=== PATIENT | female | born 1970 | race Caucasian/White ===

== ENCOUNTER → 2016-05-24 | Outpatient (CLI) | payer OTHER ==
[~2016-05-24] MED LIST: ALBINS/ INH; ALBU18002 INH; ATOR-22 PO; BACL10TA PO; CEFD300C2 PO; CLR10 PO; CZR50 PO; DICL-201 PO; DIPH1TAB PO; DULO60CA44 PO; ESCI1TAB10 PO; FERR1TAB23 PO; FERR324T PO; GABA-113 PO; GABA1CAP5 PO; GADAVIST IV PRN; HYDR12.55 PO; HYDR200T5 PO; HYDR25TA5 PO; LEVO1TAB35 PO; LISI-725 PO; MELO7.5T5 PO; METH500T37 PO; MONT1TAB5 PO; PRAM0.256 PO; PRLSR20 PO; PROC1TAB5 PO; PRVHFAIN INH; RRIPRATNEB NEB
--- NOTE | 2016-05-24 21:13 | DIAGNOSTIC IMAGING REPORT ---
MRI CERVICAL SPINE COMBO CLINICAL HISTORY: Multifocal arthralgias. COMPARISON STUDY: No priors. TECHNIQUE: MRI of the cervical spine is performed utilizing various T1 and T2-weighted sequences in the axial and sagittal planes. Contrast-enhanced sequences are acquired following the IV administration of 9 cc of Gadavist. The examination is significantly degraded by motion artifact. FINDINGS: Cervical spine: Vertebral body height and alignment are maintained throughout the cervical spine. The atlantodental articulation appears preserved. There may be congenital incomplete fusion of the anterior and posterior ring of C1. There is mild straightening of the cervical lordosis. The spinous processes appear intact. No destructive bony lesion is seen. Intervertebral discs: There is degenerative disc desiccation seen throughout the cervical spine. Mild loss of height is noted at C5-C6. Spinal cord: The cervical spinal cord is normal in morphology. Slightly increased T2 signal intensity is suggested at C5-C6 at the level of a large posterior disc osteophyte complex. This may represent minimal myelomalacia. The cervical cord is otherwise normal in signal intensity. No abnormal enhancement is identified on the postcontrast images. C2-C3: Facet arthropathy causes minimal left-sided neural foraminal stenosis. C3-C4: A posterior disc osteophyte complex abuts the ventral cord. Uncovertebral and facet arthropathy causes mild right greater than the left neural foraminal stenosis. C4-C5: A posterior disc osteophyte complex abuts the ventral cord. The minimum central canal diameter at this level measures 7.5 mm. Predominantly uncovertebral arthropathy causes minimal right neural foraminal stenosis. C5-C6: A posterior disc osteophyte complex effaces the ventral cord. Uncovertebral and facet arthropathy causes severe left and moderate to severe right neural foraminal stenosis. C6-C7: Uncovertebral and facet arthropathy cause moderate right greater than the left neural foraminal stenosis. The central canal is clear. C7-T1: Mild facet arthropathy is of no consequence. Soft tissues: The prevertebral and paraspinous soft tissues are within normal limits. Brain parenchyma: Partially visualized brain parenchyma at the skull base is within normal limits. IMPRESSION: 1. Multilevel cervical spondylosis as above. This is greatest at C5-C6 where a posterior disc osteophyte complex effaces the ventral cord. See discussion for detailed level by level analysis. 2. There is questionable minimally increased T2 signal intensity in the cervical cord at the level of C5-C6. This may represent minimal myelomalacia secondary to spinal stenosis. 3. The cervical spinal cord is otherwise normal in morphology and signal intensity. No abnormal enhancement is seen on the postcontrast images. 4. No destructive bony process is identified. Dictated: 05/24/2016 8:45 PM Transcribed: 05/24/2016 9:12 PM SUDHIR_Rah Electronically signed by: Mark Ruano M.D. 05/24/2016 9:16 PM Dictated Date/Time: 05/24/2016 8:45 PM
--- NOTE | 2016-05-24 21:58 | DIAGNOSTIC IMAGING REPORT ---
MRI OF THE BRAIN COMBO CLINICAL HISTORY: Multifocal arthralgias. Extremity numbness. COMPARISON STUDY: No priors. TECHNIQUE: MRI of the brain was performed utilizing various T1 and T2-weighted sequences in the axial, sagittal, and coronal planes. Contrast-enhanced sequences were acquired following the administration of 9 cc of Gadavist. The examination is performed utilizing multiple sclerosis protocol. The examination is degraded by motion artifact. FINDINGS: Brain parenchyma: The brain parenchyma is normal in appearance. There is no hemorrhage or mass effect. There is no restricted diffusion to suggest acute ischemia. No enhancing mass lesion is identified on the postcontrast images. Altamirano-white matter differentiation is preserved. No extra-axial fluid collection is seen. The cerebellar tonsils are normal in configuration. Ventricles, sulci, and cisterns: Normal in configuration. Pituitary and sella: Partially empty sella is incidentally noted. Intracranial vasculature: Normal flow voids are maintained at the skull base. Orbits: The bony orbits are grossly intact. Orbital contents are normal in appearance. Sinuses and mastoids: Clear. Calvarium: Unremarkable. Cervical cord: Partially visualized cervical spinal cord is normal in morphology and signal intensity. IMPRESSION: No acute intracranial abnormality noting a motion degraded examination. Electronically signed by: Mark Ruano M.D. 05/24/2016 9:56 PM Dictated Date/Time: 05/24/2016 9:51 PM
== END | disposition home or self-care (01) ==
LOC: C.MRI 18:40
PROVIDERS: ATTEND Psychiatry & Neurology Neurology
DX: H91.20 Sudden idiopathic hearing loss, unspecified ear (principal); M25.50 Pain in unspecified joint; R20.0 Anesthesia of skin

== ENCOUNTER → 2016-05-26 | Outpatient (CLI) | payer OTHER ==
[~2016-05-26] MED LIST changes: -GADAVIST IV PRN
[2016-05-26 13:53] LABS: ALT/SGPT 24 U/L (12-78); BLOOD UREA NITROGEN 11 mg/dl (7-18); BUN/CREATININE RATIO 13.3 (10-20); CALCIUM 9.1 mg/dl (8.5-10.1); CARBON DIOXIDE 27 mmol/L (21-32); CHLORIDE 105 mmol/L (98-107); CHOLESTEROL 209 mg/dl (0-200); CREATININE 0.83 mg/dl (0.60-1.20); GLUCOSE 88 mg/dl (70-99); SODIUM 140 mmol/L (136-145)
[2016-05-26 13:56] LABS: CHOLESTEROL/HDL RATIO 5.4; HDL CHOLESTEROL 39 mg/dl; LDL CHOLESTEROL CALCULATED 138 mg/dl; TRIGLYCERIDES 160 mg/dl (0-150); VERY LOW DENSITY LIPOPROT CALC 32 mg/dl
== END | disposition home or self-care (01) ==
LOC: C.LABBC 11:05
PROVIDERS: ATTEND Family Medicine
DX: I10 Essential (primary) hypertension (principal); E78.5 Hyperlipidemia, unspecified

== ENCOUNTER → 2016-05-30 | Outpatient (CLI) | payer OTHER ==
--- NOTE | 2016-05-30 15:00 | MAMMOGRAPHY REPORT ---
UNILATERAL LEFT DIGITAL DIAGNOSTIC MAMMOGRAM TOMOSYNTHESIS WITH CAD AND TARGETED LEFT ULTRASOUND: CLINICAL HISTORY: 46-year-old female presents for follow-up in the left breast for a grouping of sigrid rocalcifications and medial asymmetry. TECHNIQUE: Left breast CC and MLO 2-D digital and tomosynthesis images, 2-D digital left XCCL and sp ot magnification left CC and ML views were obtained. Current study was also evaluated with a Comput er Aided Detection (CAD) system. COMPARISON: Comparison is made to exams dated: 11/26/2015 mammogram, 11/19/2015 mammogram, 05/30/2016 ultrasound, and 11/26/2015 ultrasound - [facility]. BREAST COMPOSITION: There are scattered areas of fibroglandular density in the left breast. FINDINGS: The parenchymal pattern of the left breast is similar to prior exams. However, the asymme try in the medial left breast is slightly less conspicuous, given slight differences in positioning on the CC view. There is a persistent cluster of coarse heterogeneous microcalcifications in the up per inner middle one third of the left breast for which spot magnification views were obtained. Bas ed on the spot magnification views this tiny 2 mm cluster of microcalcifications is unchanged. Give n that they were identified on the patient's baseline screening mammogram, longer stability is neede d although they are most likely benign. No new suspicious mass, architectural distortion or cluster of microcalcifications is seen. Targeted ultrasound was performed in the medial left breast. In the 10:00 axis, 6 cm from the nippl e, there is an anechoic benign simple cyst measuring 3.4 x 2.1 x 2.7 mm. This has fluctuated in siz e comparing to the prior ultrasound, but given the anechoic nature it is benign. No other discrete solid or cystic mass is seen. IMPRESSION: ACR-BI-RADS CATEGORY 3: PROBABLY BENIGN, TARGETED ULTRASOUND ACR-BI-RADS CATEGORY 3: DC OBABLY BENIGN 1. Decreased conspicuity of an asymmetry in the medial left breast, which may correlate with an ane choic simple cyst on ultrasound. This finding is considered benign and no further close follow-up i s needed at this time. 2. A 2 mm cluster of coarse heterogeneous microcalcifications in the upper inner middle one third o f the left breast is stable dating back to 11/26/2015. Longer stability is needed and another 6 mon th follow-up exam including spot magnification views is recommended. Annual right mammography is al so due at that time. These results and recommendations were discussed with the patient at the time of the exam. Approximately 10% of breast cancers are not detected with mammography. A negative mammographic repor t should not delay biopsy if a clinically suggestive mass is present. Yasmeen Gongora M.D. ay/:05/30/2016 12:07:57 Huc: Verónica CLAROS(Sonya)(M), [facility] letter sent: Follow Up Recommended 3 BI-RADS Code: ACR-BI-RADS Category 3: Probably Benign Ultrasound BI-RADS: ACR-BI-RADS Category 3: P robably Benign
== END | disposition home or self-care (01) ==
LOC: C.MAMM 09:26
PROVIDERS: ATTEND Family Medicine
DX: R92.0 Mammographic microcalcification found on diagnostic imaging of breast (principal); N64.9 Disorder of breast, unspecified

== ENCOUNTER → 2016-06-20 | Outpatient (CLI) | payer OTHER ==
[~2016-06-20] MED LIST changes: -ALBINS/ INH; +ALBINS/ NEB
== END | disposition home or self-care (01) ==
LOC: C.LABBC 10:19
PROVIDERS: ATTEND Family Medicine
DX: E55.9 Vitamin D deficiency, unspecified (principal)

== ENCOUNTER 2016-07-31 05:00 | Emergency (ER) | payer OTHER ==
[~2016-07-31] VITALS: Ht 154.9 cm; Wt 100.0 kg
[~2016-07-31 05:00] MED LIST changes: -ALBINS/ NEB; -ATOR-22 PO; -BACL10TA PO; -CEFD300C2 PO; -CZR50 PO; -DICL-201 PO; -DIPH1TAB PO; -DULO60CA44 PO; -ESCI1TAB10 PO; -FERR1TAB23 PO; -GABA-113 PO; -GABA1CAP5 PO; -HYDR12.55 PO; -HYDR200T5 PO; -LEVO1TAB35 PO; -LISI-725 PO; -METH500T37 PO; -MONT1TAB5 PO; -PRAM0.256 PO; -PRLSR20 PO; -PROC1TAB5 PO; -PRVHFAIN INH
[2016-07-31 05:12] VITALS: TEMP 36.6; Ht 154.9 cm; Wt 100.0 kg
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
[2016-07-31 05:49] LABS: HEMATOCRIT 42.4 % (37-47); MEAN CELL VOLUME 86.9 fL (80-100); MEAN CORPUSCULAR HEMOGLOBIN 30.1 pg (25-34); MEAN CORPUSCULAR HGB CONC 34.7 g/dl (32-36); MEAN PLATELET VOLUME 9.8 fL (7.4-10.4); PLATELET COUNT 372 K/uL (130-400); RED BLOOD COUNT 4.88 M/uL (4.2-5.4); WHITE BLOOD COUNT 17.46 K/uL (4.8-10.8)
[2016-07-31 06:07] LABS: ALT/SGPT 39 U/L (12-78); AST/SGOT 24 U/L (15-37); BLOOD UREA NITROGEN 9 mg/dl (7-18); CARBON DIOXIDE 26 mmol/L (21-32); CHLORIDE 105 mmol/L (98-107); CREATININE 0.75 mg/dl (0.60-1.20); GLUCOSE 88 mg/dl (70-99); POTASSIUM 3.5 mmol/L (3.5-5.1); SODIUM 140 mmol/L (136-145)
[2016-07-31 06:09] LABS: BENZODIAZEPINE, URINE NEG (NEG); COCAINE,URINE NEG (NEG); PHENCYCLIDINE, URINE NEG (NEG)
[2016-07-31 06:17] LABS: ALKALINE PHOSPHATASE 111 U/L (45-117)
[2016-07-31 06:27] LABS: ACETAMINOPHEN < 2 ug/ml (10-30)
[2016-07-31 07:07] VITALS: O2SAT 95
--- NOTE | 2016-07-31 08:49 | EMERGENCY ROOM VISIT NOTE ---
ED Visit Note This patient was signed out to me at shift change by Dr. Suero. The patient had been medically cleared and was awaiting psychiatric evaluation. The patient was seen by the [facility] mental health worker who feels that she is safe to go home. I talked to the patient at length as well. She denies that she was trying to hurt herself. She denies suicidal or homicidal ideations. She desires to go home. She will be discharged to home . she should follow up with her regular doctor and ensure that she only takes her medications as directed. She should return to ER if thoughts of hurting himself or others, any new problems or concerns.
[2016-07-31 09:35] VITALS: BP 136/88; PULSE 89; O2SAT 95
[2016-11-07] MEDS ORDERED: METH500T37 PO (10:17)
[2017-02-08] MEDS ORDERED: PRVHFAIN INH (02:09)
[2017-02-08] MEDS ORDERED: ALBINS/ NEB (02:16)
[2017-02-08] MEDS ORDERED: BACL10TA PO (02:18)
[2017-02-08] MEDS ORDERED: PROC1TAB5 PO (02:19)
[2017-02-08] MEDS ORDERED: MONT1TAB5 PO (02:37)
[2017-02-08] MEDS ORDERED: DULO60CA44 PO (02:38)
[2017-02-08] MEDS ORDERED: PRAM0.256 PO (02:40)
[2017-02-08] MEDS ORDERED: HYDR12.55 PO (02:40)
[2017-02-08] MEDS ORDERED: CZR50 PO (10:46)
[2017-02-08] MEDS ORDERED: GABA-113 PO (12:45)
[2017-02-08] MEDS ORDERED: DIPH1TAB PO (12:45)
[2017-02-08] MEDS ORDERED: DICL-201 PO (12:45)
[2017-02-08] MEDS ORDERED: ATOR-22 PO (15:01)
[2017-02-08] MEDS ORDERED: PRLSR20 PO (15:01)
[2017-02-10] MEDS ORDERED: ZNTT/150 PO (09:14)
== END 2016-07-31 09:41 | disposition home or self-care (01) ==
LOC: EDBD 05:00 → C.EDA 05:01
DX: T50.991A Poisoning by other drugs, medicaments and biological substances, accidental (unintentional), initial encounter (principal); X58.XXXA Exposure to other specified factors, initial encounter; F10.129 Alcohol abuse with intoxication, unspecified; Y90.6 Blood alcohol level of 120-199 mg/100 ml; D86.0 Sarcoidosis of lung; F17.200 Nicotine dependence, unspecified, uncomplicated

== ENCOUNTER → 2016-08-18 | Outpatient (CLI) | payer OTHER ==
[~2016-08-18] MED LIST changes: +ALBINS/ NEB; +ATOR-22 PO; +BACL10TA PO; +CEFD300C2 PO; +CZR50 PO; +DICL-201 PO; +DIPH1TAB87 PO; +DULO60CA44 PO; +ESCI1TAB10 PO; +FERR1TAB23 PO; +GABA-113 PO; +GABA600T PO; +GADAVIST IV PRN; +HYDR12.55 PO; +HYDR200T5 PO; +METH500T37 PO; +MONT1TAB5 PO; +ONDA4TAB65 PO; +PRAM0.256 PO; +PRLSR20 PO; +PROC1TAB5 PO; +PRVHFAIN INH; +ZNTT/150 PO
--- NOTE | 2016-08-18 15:13 | DIAGNOSTIC IMAGING REPORT ---
MRI OF THE LUMBAR SPINE COMBO CLINICAL HISTORY: Low back pain. COMPARISON STUDY: No priors. TECHNIQUE: MRI of the lumbar spine is performed utilizing various T1 and T2-weighted sequences in the axial and sagittal planes. Contrast-enhanced sequences are acquired following the IV administration of 9.5 cc of Gadavist. FINDINGS: Lumbar spine: Vertebral body height and alignment are maintained throughout the lumbar spine. Normal marrow signal intensity is preserved throughout the visualized bony structures. The transverse and spinous processes appear intact. There is no evidence of spondylolysis. Tiny anterior osteophytes are noted at L4 and L5. No destructive osseous lesion is seen. Intervertebral discs: There is mild degenerative disc desiccation throughout the lumbar spine. There is moderate loss of height at L5-S1. Spinal cord: The visualized spinal cord is normal in morphology and signal intensity. The conus medullaris terminates at the L1-L2 interspace. The nerve roots of the cauda equina are normal in morphology. No abnormal enhancement is identified on the postcontrast images. L1-L2: Unremarkable. L2-L3: Unremarkable. L3-L4: Unremarkable. L4-L5: There is minimal disc bulge. In conjunction with hypertrophy of the ligamentum flavum, this contributes to minimal acquired compromise of the central canal. The minimum AP diameter measures 8 mm. There is mild bilateral subarticular stenosis. Facet arthropathy causes minimal neural foraminal narrowing. L5-S1: There is broad-based posterior disc bulge eccentric to the left with annular fissure. There is no significant acquired compromise of the central canal at this level. The disc bulge abuts the transiting bilateral S1 nerve roots. Facet arthropathy causes minimal right neural foraminal stenosis. Sacrum: Visualized sacrum is normal in morphology and signal intensity. Soft tissues: The left kidney is noted in the pelvis. The paraspinous soft tissues are within normal limits. IMPRESSION: 1. There is a broad-based disc bulge at L5-S1. This abuts the transiting bilateral S1 nerve roots. 2. There is minimal acquired compromise of the central canal at L4-L5 secondary to posterior disc bulge. 3. See discussion for detailed [id number] analysis. 4. The left kidney is located in the pelvis. Dictated: 08/18/2016 2:35 PM Transcribed: 08/18/2016 3:12 PM Lucila Electronically signed by: Mark Ruano M.D. 08/18/2016 3:14 PM Dictated Date/Time: 08/18/2016 2:35 PM
== END | disposition home or self-care (01) ==
LOC: C.MRIBC 13:17
PROVIDERS: ATTEND Psychiatry & Neurology Neurology
DX: M54.16 Radiculopathy, lumbar region (principal)

== ENCOUNTER → 2016-09-05 | Outpatient (CLI) | payer OTHER ==
[~2016-09-05] MED LIST changes: -GADAVIST IV PRN
[2016-09-05 13:55] LABS: BLOOD UREA NITROGEN 7 mg/dl (7-18); BUN/CREATININE RATIO 8.8 (10-20); CALCIUM 8.8 mg/dl (8.5-10.1); CARBON DIOXIDE 30 mmol/L (21-32); CHLORIDE 106 mmol/L (98-107); CREATININE 0.79 mg/dl (0.60-1.20); GLUCOSE 101 mg/dl (70-99); POTASSIUM 3.4 mmol/L (3.5-5.1); SODIUM 142 mmol/L (136-145)
== END | disposition home or self-care (01) ==
LOC: C.LABBC 11:16
PROVIDERS: ATTEND Family Medicine
DX: I10 Essential (primary) hypertension (principal); R60.0 Localized edema

== ENCOUNTER → 2016-09-06 | Outpatient (CLI) | payer OTHER ==
--- NOTE | 2016-09-06 11:00 | DIAGNOSTIC IMAGING REPORT ---
LEFT HAND MIN 3 VIEWS ROUTINE CLINICAL HISTORY: M25.50 Arthralgia of multiple [id number] [id number] Lumbar r pain COMPARISON: None. DISCUSSION: The bones and joint spaces appear intact. There is no evidence of fracture, dislocation or bony disease. There is no evidence for soft tissue swelling. IMPRESSION: Negative study. Electronically signed by: Geremias Braun M.D. 09/06/2016 10:59 AM Dictated Date/Time: 09/06/2016 10:58 AM
--- NOTE | 2016-09-06 11:15 | DIAGNOSTIC IMAGING REPORT ---
RIGHT HAND MIN 3 VIEWS ROUTINE CLINICAL HISTORY: M25.50 Arthralgia of multiple [id number] [id number] Lumbar r Right pain COMPARISON: None. DISCUSSION: The bones and joint spaces appear intact. There is no evidence of fracture, dislocation or bony disease. There is no evidence for soft tissue swelling. IMPRESSION: Negative study. Electronically signed by: Geremias Braun M.D. 09/06/2016 11:14 AM Dictated Date/Time: 09/06/2016 11:14 AM
--- NOTE | 2016-09-06 11:19 | DIAGNOSTIC IMAGING REPORT ---
RIGHT FOOT MIN 3 VIEWS ROUTINE CLINICAL HISTORY: Right foot pain COMPARISON: None. DISCUSSION: No fractures or dislocations are visualized. There are no erosive or destructive changes. There is a tiny Achilles insertional spur. IMPRESSION: 1. No acute fractures 2. No evidence of erosive disease Electronically signed by: Andrés Winkler M.D. 09/06/2016 11:18 AM Dictated Date/Time: 09/06/2016 11:17 AM
[2016-09-06 13:07] LABS: RHEUMATOID FACTOR < 10.0 U/mL (0-15); TOTAL IRON BINDING CAPACITY 347 mcg/dl (250-450)
[2016-09-12 13:10] LABS: ANTI-CENTROMERE AB <1.0 NEG AI (<1.0 NEG); ANTI-SS-A <1.0 NEG AI (<1.0 NEG); ANTI-SS-B 2.4 POS AI (<1.0 NEG); DNA ds CRITHIDIA NEGATIVE (NEGATIVE); Sm Antibody <1.0 NEG AI (<1.0 NEG)
== END | disposition home or self-care (01) ==
LOC: C.LAB1850 10:15
PROVIDERS: ATTEND Internal Medicine Rheumatology
DX: M25.50 Pain in unspecified joint (principal); M54.16 Radiculopathy, lumbar region; M79.643 Pain in unspecified hand; M79.673 Pain in unspecified foot; R53.83 Other fatigue; G43.109 Migraine with aura, not intractable, without status migrainosus; M48.02 Spinal stenosis, cervical region

== ENCOUNTER 2016-09-18 10:13 | Emergency (ER) | payer OTHER ==
[~2016-09-18] VITALS: Ht 154.9 cm; Wt 97.6 kg
[~2016-09-18 10:13] MED LIST changes: -ALBINS/ NEB; -ATOR-22 PO; -BACL10TA PO; -CEFD300C2 PO; -CZR50 PO; -DICL-201 PO; -DIPH1TAB87 PO; -DULO60CA44 PO; -ESCI1TAB10 PO; -FERR1TAB23 PO; -GABA-113 PO; -GABA600T PO; -HYDR12.55 PO; -HYDR200T5 PO; -METH500T37 PO; -MONT1TAB5 PO; -ONDA4TAB65 PO; -PRAM0.256 PO; -PRLSR20 PO; -PROC1TAB5 PO; -PRVHFAIN INH; -ZNTT/150 PO
[2016-09-18 10:17] VITALS: BP 133/73; PULSE 102; TEMP 36.9; O2SAT 97; Ht 154.9 cm; Wt 97.6 kg
[2016-09-18] MEDS ORDERED: CEFD300C2 PO (10:38)
--- NOTE | 2016-09-18 10:44 | EMERGENCY ROOM VISIT NOTE ---
History First contact with patient: 10:24 Chief Complaint: SINUS CONGESTION/PRESSURE Stated Complaint: SINUS 1ST WHEEZING, COUGH Nursing Triage Summary: Cough, congestion History of Present Illness The patient is a 46 year old female who presents to the Emergency Room with complaints of significant facial congestion, postnasal drip, coughing and dry heaving. The patient reports that she has had sinus congestion for the past 3 weeks. It has worsened over the past few days. She denies any fevers or chills or headache. She has not contacted her family doctor regarding her symptoms. The patient also reports that she tripped and fell yesterday. She has bruising over the inner aspect of the left elbow. She is currently under the care of Dr. Pope. She reports right lower extremity weakness. She did have a recent MRI of the back. She denies any bladder or bowel incontinence, saddle anesthesias or noticeable foot drop. Review of Systems 10 system review was performed and was negative except for pertinent positives and negatives as indicated in history of present illness Past Medical/Surgical History Medical Problems: (1) Pneumonia of both lower lobes (2) Sarcoidosis of lung Family History No pertinent family history Social History Smoking Status: Current Every Day Smoker Alcohol Use: occasionally Drug Use: none Marital Status: single Housing Status: lives with family Occupation Status: employed Current/Historical Medications Scheduled Albuterol Sulfate (Proair Respiclick), 1 PUFF INH UD Atorvastatin (Lipitor), 20 MG PO DAILY Cefdinir (Omnicef), 300 MG PO Q12H Diclofenac (Voltaren), 75 MG PO BID Ferrous Gluconate (Iron Supplement), 324 MG PO DAILY Gabapentin (Neurontin), 600 MG PO TID Hydrochlorothiazide (Hydrochlorothiazide), 12.5 MG PO DAILY Ipratropium [place] (Ipratropium [place]), 1 DOSE NEB UD Loratadine (Claritin), 10 MG PO DAILY Losartan Potassium (Losartan Potassium), 50 MG PO DAILY Meloxicam (Mobic), 15 MG PO DAILY Omeprazole (Prilosec), 20 MG PO DAILY Scheduled PRN Diphenhydramine Hcl (Benadryl Allergy), 50 MG PO Q4H PRN for ALLERGIC REACTION Allergies Coded Allergies: Aspirin (Verified Allergy, Unknown, UNKN, 07/31/16) [place] (Unverified Allergy, Unknown, TIGHTNESS OF THROAT,WATERY EYES, 07/31) Penicillins (Verified Allergy, Unknown, Unknown, 07/31/16) Uncoded Allergies: MILDEW (Allergy, Severe, BACTERIAL PNEUMONIA, 03/20/16) MOLD (Allergy, Severe, BACTERIAL PNEUMONIA, 03/20/16) Physical Exam Vital Signs Date Time Temp Pulse Resp B/P Pulse Ox O2 Delivery O2 Flow Rate FiO2 09/18/16 10:17 36.9 102 20 133/73 97 Room Air Physical Exam CONSTITUTIONAL: Healthy and well nourished. Alert and oriented X 3 with positive affect. Patient does not appear acutely ill or in any acute discomfort or distress. HEENT: Normocephalic, atraumatic. Pupils equal, round and reactive. Examination of the ears does not show any TM bulging, air-fluid levels or purulent effusion. No erythema noted. Patient has mild drainage from both nares. She is notably tender to palpation and percussion of the maxillary sinuses. OROPHARYNX: Postnasal drip is noted. No tonsillar exudates. NECK: Full active range of motion without discomfort. RESPIRATORY: Clear to auscultation bilaterally with no wheezing, crackles, rhonchi or stridor. CARDIOVASCULAR: Regular rate and rhythm with no murmurs, rubs or gallops. GASTROINTESTINAL: Bowel sounds present in all quadrants. Soft and nontender to palpation. MUSCULOSKELETAL: Examination shows ecchymosis over the right medial elbow. She otherwise has full flexion, extension, pronation and supination without discomfort. She also has no tenderness to palpation about the shoulder. Distal pulses are intact. Ankle plantar and dorsiflexion strength is 5 out of 5 and symmetric bilaterally. Patient does not ambulate with a foot drop. INTEGUMENTARY: No rash or other significant dermatologic conditions noted. NEUROLOGIC: No focal neurologic deficits noted. Right foot and toes are sensory intact with lower extremity deep tendon reflexes 2+ and symmetric bilaterally. Medical Decision & Procedures ED Course Patient history and physical exam were performed. Nurse's notes were reviewed. Medical exam and history are consistent with an acute maxillary sinusitis. The patient's musculoskeletal examination of the right upper extremity was normal except for mild ecchymosis. At this point, I do not feel that further imaging studies are warranted. The patient was provided a prescription for Omnicef. She was instructed to take ibuprofen or Tylenol as needed for pain. Intermittent application of ice to the elbow. She was instructed to follow-up with family doctor within the next 3-5 days for recheck of her sinusitis. She was also instructed to follow-up with Dr. Pope given her most recent fall. The patient was happy with plan of care, voiced understanding of all discharge instructions, and rated her overall discomfort a 3 out of 10 at the time of discharge. Medical Decision Impression Primary Impression: Acute maxillary sinusitis Additional Impressions: Status post fall Contusion of right elbow Departure Information Dispostion Home / Self-Care Prescriptions Cefdinir (OMNICEF) 300 Mg Cap 300 MG PO Q12H for 10 Days, #20 CAP Prov: Latrell Casey PA 09/18/16 Referrals Keyla Johnston D.O. Forms HOME CARE DOCUMENTATION FORM, IMPORTANT VISIT INFORMATION Patient Instructions Sinusitis Causes, Sinusitis Prevent, Sinusitis Self Care, [facility] Maintenance Assistant Additional Instructions Complete all Omnicef antibiotics as prescribed. Ibuprofen or Tylenol as needed for pain. Intermittently apply ice to the elbow as needed for swelling and discomfort. Follow-up with your family doctor in 3-5 days for recheck of your sinusitis. Follow-up with Dr. Pope to discuss your fall and back issues with right leg weakness. Problem Qualifiers Primary Impression: Acute maxillary sinusitis Recurrence: recurrent Qualified Codes: J01.01 - Acute recurrent maxillary sinusitis Additional Impressions: Contusion of right elbow Encounter type: initial encounter Qualified Codes: S50.01XA - Contusion of right elbow, initial encounter
[2016-11-07] MEDS ORDERED: METH500T37 PO (10:17)
[2017-02-08] MEDS ORDERED: PRVHFAIN INH (02:09)
[2017-02-08] MEDS ORDERED: ALBINS/ NEB (02:16)
[2017-02-08] MEDS ORDERED: BACL10TA PO (02:18)
[2017-02-08] MEDS ORDERED: PROC1TAB5 PO (02:19)
[2017-02-08] MEDS ORDERED: MONT1TAB5 PO (02:37)
[2017-02-08] MEDS ORDERED: DULO60CA44 PO (02:38)
[2017-02-08] MEDS ORDERED: HYDR12.55 PO (02:40)
[2017-02-08] MEDS ORDERED: PRAM0.256 PO (02:40)
[2017-02-08] MEDS ORDERED: CZR50 PO (10:46)
[2017-02-08] MEDS ORDERED: GABA-113 PO (12:45)
[2017-02-08] MEDS ORDERED: DIPH1TAB87 PO (12:45)
[2017-02-08] MEDS ORDERED: DICL-201 PO (12:45)
[2017-02-08] MEDS ORDERED: PRLSR20 PO (15:01)
[2017-02-08] MEDS ORDERED: ATOR-22 PO (15:01)
[2017-02-10] MEDS ORDERED: ZNTT/150 PO (09:14)
[2017-03-01] MEDS ORDERED: GABA600T PO (13:10)
[2017-03-13] MEDS ORDERED: ONDA4TAB65 PO (21:59)
== END 2016-09-18 11:37 | disposition home or self-care (01) ==
LOC: C.EDB 10:14
DX: J01.11 Acute recurrent frontal sinusitis (principal); S50.01XA Contusion of right elbow, initial encounter; W01.0XXA Fall on same level from slipping, tripping and stumbling without subsequent striking against object, initial encounter; F17.200 Nicotine dependence, unspecified, uncomplicated; Z79.899 Other long term (current) drug therapy; Z88.0 Allergy status to penicillin; Z88.6 Allergy status to analgesic agent; Z91.018 Allergy to other foods

== ENCOUNTER → 2016-10-28 | Outpatient (CLI) | payer OTHER ==
[~2016-10-28] MED LIST changes: +ALBINS/ NEB; +ATOR-22 PO; +BACL10TA PO; +CZR50 PO; +DICL-201 PO; +DIPH1TAB87 PO; +DULO60CA44 PO; +ESCI1TAB10 PO; +FERR1TAB23 PO; +GABA-113 PO; +GABA600T PO; +HYDR12.55 PO; +HYDR200T5 PO; +METH500T37 PO; +MONT1TAB5 PO; +ONDA4TAB65 PO; +PRAM0.256 PO; +PRLSR20 PO; +PROC1TAB5 PO; +PRVHFAIN INH; +ZNTT/150 PO
[2016-10-28 16:52] LABS: BASO % 0.5 %; BASO ABS # 0.06 K/uL (0-0.2); COMPLETE YES; EOS % 3.4 %; IG% 0.3 %; LYMPH % 31.7 %; LYMPH ABS # 3.54 K/uL (1.2-3.4); MEAN CELL VOLUME 89.6 fL (80-100); MEAN CORPUSCULAR HGB CONC 34.7 g/dl (32-36); MONO % 6.4 %; NEUT % 57.7 %; PLATELET COUNT 421 K/uL (130-400); WHITE BLOOD COUNT 11.15 K/uL (4.8-10.8)
[2016-10-28 16:59] LABS: ALT/SGPT 34 U/L (12-78); CREATININE 0.76 mg/dl (0.60-1.20)
[2016-10-28 17:03] LABS: ALKALINE PHOSPHATASE 93 U/L (45-117); AST/SGOT 13 U/L (15-37)
== END ==
LOC: C.LABBC 15:01
PROVIDERS: ATTEND Internal Medicine Rheumatology
DX: M25.50 Pain in unspecified joint (principal); R76.8 Other specified abnormal immunological findings in serum

== ENCOUNTER 2016-11-18 00:04 | Emergency (ER) | payer OTHER ==
[~2016-11-18] VITALS: Ht 154.9 cm; Wt 96.1 kg
[~2016-11-18 00:04] MED LIST changes: -ALBINS/ NEB; -BACL10TA PO; +DIPH1TAB PO; -DIPH1TAB87 PO; -DULO60CA44 PO; -ESCI1TAB10 PO; -FERR1TAB23 PO; -FERR324T PO; -GABA600T PO; -HYDR12.55 PO; -HYDR200T5 PO; -MELO7.5T5 PO; -MONT1TAB5 PO; -ONDA4TAB65 PO; -PRAM0.256 PO; -PROC1TAB5 PO; -PRVHFAIN INH; -ZNTT/150 PO
[2016-11-18 00:12] VITALS: TEMP 36.8; Ht 154.9 cm; Wt 96.1 kg
[2016-11-18] MEDS ORDERED: METOCLOPRAMIDE HCL INJ 5 MG/ML 2 ML VIAL IV STA (00:54)
[2016-11-18] MEDS ORDERED: DiphenhydrAMINE HCL 50 MG/ML VIAL IV STA (00:54)
[2016-11-18 01:18] LABS: BASO % 0.5 %; BASO ABS # 0.06 K/uL (0-0.2); COMPLETE YES; EOS % 3.4 %; HEMATOCRIT 41.8 % (37-47); IG% 0.3 %; LYMPH % 33.2 %; LYMPH ABS # 3.89 K/uL (1.2-3.4); MEAN CELL VOLUME 88.4 fL (80-100); MEAN PLATELET VOLUME 9.3 fL (7.4-10.4); MONO % 6.3 %; NEUT % 56.3 %; PLATELET COUNT 423 K/uL (130-400); RED BLOOD COUNT 4.73 M/uL (4.2-5.4); WHITE BLOOD COUNT 11.73 K/uL (4.8-10.8)
[2016-11-18 01:35] LABS: CALCIUM 8.9 mg/dl (8.5-10.1); CREATININE 0.68 mg/dl (0.60-1.20)
[2016-11-18] MEDS ORDERED: POTASSIUM CHLORIDE 10 MEQ TABCR PO STA (01:55)
[2016-11-18] MEDS ORDERED: ESCI1TAB10 PO (02:06)
[2016-11-18] MEDS ORDERED: PRVHFAIN INH (02:09)
[2016-11-18] MEDS ORDERED: HYDR200T5 PO (02:13)
[2016-11-18] MEDS ORDERED: FERR1TAB23 PO (02:14)
[2016-11-18] MEDS ORDERED: ALBINS/ INH (02:16)
[2016-11-18] MEDS ORDERED: BACL10TA PO (02:18)
[2016-11-18] MEDS ORDERED: PROC1TAB5 PO (02:19)
[2016-11-18 03:07] VITALS: BP 118/77; PULSE 59; O2SAT 94
--- NOTE | 2016-11-18 04:58 | EMERGENCY ROOM VISIT NOTE ---
History First contact with patient: 00:51 Chief Complaint: HEADACHE Stated Complaint: DOUBLE VISION,HEADACHE,NAUSEA History of Present Illness The patient is a 46 year old female who presents to the Emergency Room with complaints of nausea, headache, diplopia and photophobia for the past day who is a history of migraines and symptoms are similar. Patient states she follows with Dr. Quijano from neurology. She has a history of migraines and cervical stenosis. Patient denies sudden onset headache, numbness, tingling, localized weakness, dysarthria, chest pain, dyspnea, cold symptoms, neck stiffness, fever , chills, loss of vision, abdominal pain. She is tolerating by mouth fluids and food. Review of Systems See HPI for pertinent positives & negatives. A total of 10 systems reviewed and were otherwise negative. Past Medical/Surgical History Medical Problems: (1) Pneumonia of both lower lobes (2) Sarcoidosis of lung Family History No pertinent family history Social History Smoking Status: Current Every Day Smoker Alcohol Use: occasionally Drug Use: none Marital Status: single Housing Status: lives with family Occupation Status: employed Current/Historical Medications Scheduled Atorvastatin (Lipitor), 20 MG PO DAILY Diclofenac (Voltaren), 75 MG PO BID Escitalopram Oxalate (Lexapro), 20 MG PO DAILY Ferrous Sulfate (Iron), 325 MG PO DAILY Gabapentin (Neurontin), 900 MG PO TID Hydrochlorothiazide (Hydrochlorothiazide), 12.5 MG PO DAILY Hydroxychloroquine Sulfate (Plaquenil), 200 MG PO DAILY Ipratropium [place] (Ipratropium [place]), 1 DOSE NEB UD Losartan Potassium (Losartan Potassium), 50 MG PO DAILY Omeprazole (Prilosec), 20 MG PO DAILY Scheduled PRN Albuterol (Ventolin Hfa), 2 PUFFS INH Q4H PRN for Cough Albuterol Sulf (Proventil 0.083% 2.5MG/3ML), 2.5 MG INH Q4-6 PRN for SOB/ Wheezing Baclofen (Lioresal), 10 MG PO Q6H PRN for PAIN & STIFFNESS & HEADACHES Diphenhydramine Hcl (Benadryl Allergy), 50 MG PO Q4H PRN for ALLERGIC REACTION Methocarbamol (Robaxin), 500 MG PO TID PRN for Muscle Spasms Prochlorperazine Maleate (Compazine), 10 MG PO Q6H PRN for Nausea Allergies Coded Allergies: Aspirin (Verified Allergy, Unknown, UNKN, 07/31/16) [place] (Unverified Allergy, Unknown, TIGHTNESS OF THROAT,WATERY EYES, 07/31) Penicillins (Verified Allergy, Unknown, Unknown, 07/31/16) Uncoded Allergies: MILDEW (Allergy, Severe, BACTERIAL PNEUMONIA, 03/20/16) MOLD (Allergy, Severe, BACTERIAL PNEUMONIA, 03/20/16) Physical Exam Vital Signs Date Time Temp Pulse Resp B/P (MAP) Pulse Ox O2 Delivery O2 Flow Rate FiO2 11/18/16 03:07 59 17 118/77 94 11/18/16 02:10 85 18 140/75 97 Room Air 11/18/16 01:23 64 18 162/80 100 Room Air 11/18/16 00:12 36.8 70 20 150/47 96 Room Air Pain Rating (0-10): 8.0 Physical Exam VITALS: Vitals are noted on the nurse's note and reviewed by myself. Vital signs stable. GENERAL: Pleasant female, in no acute distress, nondiaphoretic, well-developed well-nourished. SKIN: The skin was without rashes, erythema, edema, or bruising. There is no tenting of the skin. Capillary reflex less than 2 seconds. HEAD: Normocephalic atraumatic. EARS: External auditory canals clear, tympanic membranes pearly farley without erythema or effusion bilaterally. EYES: Pupils equal round and reactive to light and accommodation. Conjunctivae without injection, sclerae without icterus. Extraocular movements intact. NOSE: Patent, turbinates without inflammation or discharge. No sinus tenderness. MOUTH: Mucous membranes moist. Pharynx without erythema or exudate. Uvula midline. Airway patent. Tongue does not deviate. NECK: Supple without nuchal rigidity. No lymphadenopathy. No thyromegaly. Cervical spine is nontender. No JVD. No meningeal signs HEART: Regular rate and rhythm without murmurs gallops or rubs. LUNGS: Clear to auscultation bilaterally without wheezes, rales or rhonchi. No dullness to percussion. No retractions or accessory muscle use. ABDOMEN: Positive bowel sounds x 4. Normal tympanic percussion. Soft, nontender, without masses or organomegaly. Ortiz sign negative. No guarding or rebound tenderness. MUSCULOSKELETAL: No muscle atrophy, erythema, or edema noted. 5 out of 5 strength throughout NEURO: Patient was alert and oriented to person place and time. Normal sensation to light and sharp touch. No focal neurological deficits. Cranial nerves II-12 grossly intact. No pronator drift. Cerebellar exam intact. Medical Decision & Procedures Laboratory Results 11/18/16 01:09 Red Blood Count 4.73, Mean Corpuscular Volume 88.4, Mean Corpuscular Hemoglobin 30.0, Mean Corpuscular Hemoglobin Concent 34.0, Mean Platelet Volume 9.3, Neutrophils (%) (Auto) 56.3, Lymphocytes (%) (Auto) 33.2, Monocytes (%) (Auto) 6.3, Eosinophils (%) (Auto) 3.4, Basophils (%) (Auto) 0.5, Neutrophils # (Auto) 6.60, Lymphocytes # (Auto) 3.89, Monocytes # (Auto) 0.74, Eosinophils # (Auto) 0.40, Basophils # (Auto) 0.06 11/18/16 01:09 Test 11/18/16 01:09 White Blood Count 11.73 K/uL (4.8-10.8) Red Blood Count 4.73 M/uL (4.2-5.4) Hemoglobin 14.2 g/dL (12.0-16.0) Hematocrit 41.8 % (37-47) Mean Corpuscular Volume 88.4 fL (80-100) Mean Corpuscular Hemoglobin 30.0 pg (25-34) Mean Corpuscular Hemoglobin Concent 34.0 g/dl (32-36) Platelet Count 423 K/uL (130-400) Mean Platelet Volume 9.3 fL (7.4-10.4) Neutrophils (%) (Auto) 56.3 % Lymphocytes (%) (Auto) 33.2 % Monocytes (%) (Auto) 6.3 % Eosinophils (%) (Auto) 3.4 % Basophils (%) (Auto) 0.5 % Neutrophils # (Auto) 6.60 K/uL (1.4-6.5) Lymphocytes # (Auto) 3.89 K/uL (1.2-3.4) Monocytes # (Auto) 0.74 K/uL (0.11-0.59) Eosinophils # (Auto) 0.40 K/uL (0-0.5) Basophils # (Auto) 0.06 K/uL (0-0.2) RDW Standard Deviation 42.9 fL (36.4-46.3) RDW Coefficient of Variation 13.1 % (11.5-14.5) Immature Granulocyte % (Auto) 0.3 % Immature Granulocyte # (Auto) 0.04 K/uL (0.00-0.02) Anion Gap 8.0 mmol/L (3-11) Est Creatinine Clear Calc Drug Dose 108.3 ml/min Estimated GFR () 120.7 Estimated GFR (Non- 104.2 BUN/Creatinine Ratio 7.0 (10-20) Calcium Level 8.9 mg/dl (8.5-10.1) Medications Administered Medications (Trade) Dose Ordered Sig/Gabe Route Start Time Stop Time Status Last Admin Dose Admin Metoclopramide HCl (Reglan Inj) 10 mg NOW STAT IV 11/18/16 00:54 11/18/16 00:56 DC 11/18/16 01:22 10 MG Diphenhydramine HCl (Benadryl Inj) 25 mg NOW STAT IV 11/18/16 00:54 11/18/16 00:56 DC 11/18/16 01:21 25 MG Potassium Chloride (Klor-Con M10) 40 meq NOW STAT PO 11/18/16 01:55 11/18/16 01:56 DC 11/18/16 02:09 40 MEQ ED Course Prior records/ancillary studies reviewed. Additional history obtained from family. Triage Nursing notes reviewed. The patient's history was concerning for headache. Differential diagnosis: Etiologies such as migraine headache, meningitis, sinusitis, CO exposure, ICH, SAH, infection, tumor, headache, sinus thrombosis, arterial dissection, as well as others were entertained. Physical examination findings: As above. Non-focal. ER treatment provided: Reglan, Benadryl On reassessment the patient felt better. Diagnostics interpreted by me: The labs revealed hypokalemia and this is replaced orally Imaging studies: Negative head CT per radiology This appears to be consistent with migraine. Patient felt much better after medicated as above. Patient was neurovascularly and neurologically intact. She requested to leave. I felt this is reasonable. She is advised to follow- up with her family care neurologist in a few days or here in the ER sooner for headache, fevers, weakness, worsening signs or symptoms or as needed. By the evaluation outlined above emergent etiologies such as meningitis, sinusitis, CO exposure, ICH, SAH, infection, temporal arteritis, tumor, sinus thrombosis, arterial dissection, as well as others were deemed relatively unlikely. The pt informed about the findings as listed above. All questions were answered and pleased with the treatment. Return instructions were outlined and the patient was discharged in stable condition. Case reviewed with my attending Referral: The patient was referred back to their primary care physician for follow-up in 2 to 3 days for a recheck of the current condition. Medical Decision As above Impression Primary Impression: Migraine Additional Impression: Hypokalemia Departure Information Dispostion Home / Self-Care Condition FAIR Forms HOME CARE DOCUMENTATION FORM, Work Instructions, Return To Work: 2 days IMPORTANT VISIT INFORMATION Patient Instructions Headaches Migraine and Tension, My [facility] Additional Instructions DO NOT drive, drink alcohol, operate machinery, or perform dangerous activities today. You were given medications in the ER that can affect your ability to safely function or operate a vehicle. Rest today in a quiet, peaceful, dark environment and get a full 8-10 hrs of sleep tonight. Avoid loud noises, smoke/smoking, alcohol, bright lights, stress, or physical exertion today to minimize the chance the headache may return. Continue current medications. Ibuprofen(Motrin, Advil) may be used for fever or pain. Use 600mg every six hours as needed. Take with food. Avoid using more than 2400mg in a 24 hour period. Do not use 2400mg per day for more than three consecutive days without physician direction. Prolonged inappropriate use can lead to stomach upset or ulcers. (AND/OR) Acetaminophen(Tylenol) may be used for fever or pain. Use 1000mg every six hours as needed. Avoid using more than 3000mg in a 24 hour period. Return to the ER for passing out, worsening headache, vision problems, neck stiffness/pain, fevers, vomiting, worsening of your condition, or as needed. Follow up with your primary physician and/or a neurologist in 2-3 days for a recheck of your current condition. Work Instructions Return To Work: 2 days Problem Qualifiers Primary Impression: Migraine Migraine type: with aura Status migrainosus presence: without status migrainosus Intractability: not intractable Qualified Codes: G43.109 - Migraine with aura, not intractable, without status migrainosus
--- NOTE | 2016-11-18 06:37 | DIAGNOSTIC IMAGING REPORT ---
CT HEAD WITHOUT CONTRAST (CT) CLINICAL HISTORY: Headache and double vision COMPARISON STUDY: MRI of the brain dated 05/24/2016 TECHNIQUE: Axial CT of the brain is performed from the vertex to the skull base. IV contrast was not administered for this examination. CT DOSE: 537.48 mGy.cm FINDINGS: No intra or extra-axial mass lesions are visualized. There is no CT evidence of acute cortical infarction. There is no evidence of midline shift. There is no acute hemorrhage. No calvarial fractures are visualized. There is no evidence of pathologic ventricular dilatation. There is no evidence of acute sinusitis IMPRESSION: Normal noncontrast head CT. Electronically signed by: Andrés Winkler M.D. 11/18/2016 6:36 AM Dictated Date/Time: 11/18/2016 6:35 AM
== END 2016-11-18 03:07 | disposition home or self-care (01) ==
LOC: C.EDB 00:05 → C.EDC 03:07
DX: G43.109 Migraine with aura, not intractable, without status migrainosus (principal); E87.6 Hypokalemia; F17.200 Nicotine dependence, unspecified, uncomplicated

== ENCOUNTER → 2016-11-23 | Outpatient (CLI) | payer OTHER ==
[~2016-11-23] VITALS: Ht 154.9 cm; Wt 95.8 kg
[~2016-11-23] MED LIST changes: +ALBINS/ NEB; -ALBU18002 INH; +BACL10TA PO; -CLR10 PO; +DULO60CA44 PO; +ESCI1TAB10 PO; +FERR1TAB23 PO; +HYDR12.55 PO; +HYDR200T5 PO; +MONT1TAB5 PO; +PRAM0.256 PO; +PROC1TAB5 PO; +PRVHFAIN INH; +ZNTT/150 PO
[2016-11-23 09:09] VITALS: BP 128/69; PULSE 70; Ht 154.9 cm; Wt 95.8 kg
== END | disposition home or self-care (01) ==
LOC: C.NEUR 08:54
PROVIDERS: ATTEND Internal Medicine Pulmonary Disease
DX: G47.33 Obstructive sleep apnea (adult) (pediatric) (principal)

== ENCOUNTER → 2016-11-24 | Outpatient (CLI) | payer OTHER ==
[2016-11-24 17:02] LABS: BLOOD UREA NITROGEN 6 mg/dl (7-18); BUN/CREATININE RATIO 7.7 (10-20); CALCIUM 9.2 mg/dl (8.5-10.1); CARBON DIOXIDE 27 mmol/L (21-32); CHLORIDE 104 mmol/L (98-107); CHOLESTEROL 194 mg/dl (0-200); CHOLESTEROL/HDL RATIO 5.9; CREATININE 0.73 mg/dl (0.60-1.20); GLUCOSE 86 mg/dl (70-99); HDL CHOLESTEROL 33 mg/dl; LDL CHOLESTEROL CALCULATED 124 mg/dl; POTASSIUM 3.6 mmol/L (3.5-5.1); SODIUM 138 mmol/L (136-145); TRIGLYCERIDES 186 mg/dl (0-150); VERY LOW DENSITY LIPOPROT CALC 37 mg/dl
[2016-11-25 07:04] LABS: ESTIMATED AVERAGE GLUCOSE 117 mg/dl; HA1C FLAG Normal (Normal)
== END | disposition home or self-care (01) ==
LOC: C.LABBC 13:34
PROVIDERS: ATTEND Family Medicine
DX: E78.5 Hyperlipidemia, unspecified (principal); R73.9 Hyperglycemia, unspecified

== ENCOUNTER → 2017-01-05 | Outpatient (CLI) | payer OTHER ==
--- NOTE | 2017-01-06 06:51 | PAP/PSG TECHNICIAN REPORT ---
[facility] [address] Composing Room Machinist Apprentice Polysomnogram Report Study name: None Report date: 01/06/2017 Study date: 01/05/2017 Referring Physician: DILIP KHAN DO, DO Name: SAVANNA NEELY Interpreting Physician: Dilip Khan D.O. Date of : 1970 Composing Room Machinist Apprentice: Macarena Montiel [facility]. Sex: Female Age: 46 Study Type: PSG Weight: 211 lbs 16 in Height: 46 years, Height 5' 1" Neck Circum: BMI: 39.86 Medications: ALBUTEROL SULFATE 2.5 MG/3 ML, ATORVASTATIN 20 MG, B-2-400 400 MG, BACLOFEN 10 MG, BENADRYL, CEFDINIR, CHANTIX 1 MG, DOCLOFENAC 75 MG, ESCITALOPRAM OXALATE 20 MG, GABAPENTIN 300 MG, HYDROCHLOROTHIAZIDE 12.5 MG, HYDROXYCHLOROQUINE 200 MG, IPRATROPIUM BROMIDE 0.02%, IRON 325 MG, LOSARTAN 50 MG, OMEPRAZOLE 20 MG, PROCHLORPERAZINE MALEATE 10 MG, VENTOLIN HFA Patient History 46 yr-old female here for a baseline/split study. She has a history of headaches, snoring, leg movements, and daytime sleepiness. Her Carlton scale is 10. The test was started on room air. ETCO2 testing was not utilized during this study. Room 3 Parameters Monitored NPSG: E1-M2, E2-M1, Fp1-M2, Fp2-M1, F3-M2, F4-M2, F4-M1, C3-M2, C4-M2, C4-M1, O1-M2, O2-M2, O2-M1, T3-M2, T4-M1, P3-M2, P4-M1, CHIN1, CHIN2, HR, EKG, Legs, PFLOW, SNOR, FLOW, CFLOW, Tidal Volume, THOR, ABDO, SpO2, PLTH, CPRESS, ETCO2 Wave, ETCO2, pH Sleep Architecture Sleep Stages Time at Lights Off 10:41:17 PM STAGES Time (min.) TST (%) Time at Lights On 5:38:17 AM Wake 49.0 -- Total Recording Time (TRT) 417.00 min. N1 67.0 18 Total Sleep Period (TSP) 395.5 min. N2 263.0 71 Total Sleep Time (TST) 368.0min. N3 0.0 0 Awake Time 49.0 min. REM 38.0 10 Wake after Sleep Onset 38.0 min. Sleep Efficiency (SE) 88 % Sleep Onset Latency (ALBERT) 11.0 min. Number of Stage 1 Shifts None Awakenings 33 Stage Changes 127 Number of REM periods 3 REM 38.0 10 REM Latency 351.5 min. NREM 330.0 90 Body Position Analysis Supine Right Left Side Prone Vertical Total Sleep Time (min.) 171.7 87.7 121.7 209.37 0.0 0.0 Total Sleep Time (%) 43% 24% 33% 57 0% N/A% Total Sleep Time REM (min.) 0.0 0.0 38.0 None 0.0 0.0 Total Sleep Time NREM (min.) 158.6 87.7 83.7 None 0.0 0.0 Intermittent Wake (min.) 13.1 8.2 27.7 None 0.0 0.0 Total Sleep Period (%) 42% None None None None None Arousals Myoclonus (PLM) * Events Count Index Events Count Index Spontaneous 14 2 Events Awake (PLMW) 47 57.6 Respiratory 4 0.7 Events Asleep w/ Arousal (PLMA) 48 7.8 PLM 47 8 Events Asleep w/o Arousal (PLMS) 556 90.7 Snoring 6 1 Total Asleep 604 98.5 Total 71 12 Total 651 94 Respiratory Analysis * CA OA MA CH H RERA Total Count 0 0 0 0 19 2 19 Index 0.0 0.0 0.0 0 3.1 0 3.4 Mean Duration 0.0 0.0 0.0 0.00 17.5 19.8 17.7 Longest Duration 0.0 0.0 0.0 0.00 0.0 20.0 24.7 Respiratory Event Summary Total Supine ~Supine Right Left Prone REM NREM Apneas Count 0 0 0 0 0 N/A 0 0 Index 0.0 0 0 0.0 0.0 N/A 0 0 Hypopneas (4% Desat) Count 19 11 8 4 4 N/A 2 17 Index 3.1 4.2 2 2.7 2.0 N/A 3.2 3.1 Apneas & All Hypopneas Count 19 11 8 4 4 N/A 2 17 Index 3.1 4 2 3 2 N/A 3.2 3.1 Respiratory Events (Rolling Mill Operator+All Hyp+RERA) Count 19 12 9 5 4 N/A 2 17 Index 3.4 5 3 3.4 2.0 N/A 3.2 3.5 Respiratory Related Arousal Count 4 12 1 1 0 N/A 0 4 Index 0.7 1 0 1 0 N/A 0 1 Snoring Analysis Supine Right Left Prone REM NREM Total Snore duration 94.2 min Snores count 1,936 983 875 N/A 151 3,643 3,794 Snore mean duration 1.5 Sec Snores index 732 673 431 N/A 238.4 662.4 618.6 TST with snoring (%) 25.6% Desaturation Event Summary: Minimum %SpO2 Event Count Mean/Min/Max Duration(sec.) Desaturation Index % Time In Bed > 90 52 29.6 / 8.8 / 57.8 19.5 39.2 86 - 90 3 20.3 / 17.8 / 21.8 0.8 58.7 81 - 85 2 21.1 / 21.0 / 21.3 14.7 2.0 76 - 80 0 N/A 0.0 0.1 71 - 75 0 N/A 0.0 0.0 66 - 70 0 N/A 0.0 0.0 61 - 65 0 N/A 0.0 0.0 56 - 60 0 N/A 0.0 0.0 51 - 55 0 N/A 0.0 0.0 < 50 0 N/A 0.0 0.0 Total REM NREM Awake <50% 0.0 min. 0.0 min. 0.0 min. 0.0 min. 51 - 60% 0.0 min. 0.0 min. 0.0 min. 0.0 min. 61 - 70% 0.0 min. 0.0 min. 0.0 min. 0.0 min. 71 - 80% 0.6 min. 0.0 min. 0.0 min. 0.6 min. 81 - 90% 247.0 min. 37.3 min. 199.1 min. 10.6 min. 91 - 100% 159.6 min. 0.7 min. 130.9 min. 28.0 min. Average 90 87 90 92 Minimum SpO2 80 82 86 80 Desaturation Event Index 7.9 4.7 5.6 25.7 # Desat. Events below 89% 15 3 7 5 Time(%) with Saturation below 89% 9.5 7.1 1.9 0.5 Time(min.) with Saturation below 89% 38.6 28.7 7.8 2.1 Time (mins) REM (mins) NREM (mins) % of TST SpO2 Below 90% 29 3 N26 28.5 SpO2 Below 88% 5 0 0 7 Heart Rate Analysis Min (bpm) Max (bpm) Average (bpm) Awake 63 123 79 NREM 61 98 73 REM 62 89 77 Overall 61 98 74 Supplemental O2 Values Minimum O2 level: None Value Start Time End Time Composing Room Machinist Apprentice Comments Ms. Neely slept in the right, left, and supine positions. No cardiac arrhythmias were noted. PLMs and many arousals from leg movements were noted. No bruxism noted. Snoring was noted and scored as a 1-2 on a scale of 1 through 5. (0=no snoring, 5=snoring loud enough to be heard through a closed door or down the estrella way). She did not meet specific Split-Night criteria during the diagnostic portion of this study. She did not wake up to use the restroom during the night. Ms. Neely stated that she slept about the same as usual. The final report will be interpreted and signed by a sleep physician. The completed physician report will then be placed in the patient medical record. Therapy (cm H2O) 0 TIB (min.) 417.0 TST (min.) 368.0 Sleep Onset (min.) 11.0 REM Onset From Sleep (min.) 351.5 Sleep Efficiency % 88 Wakefulness (%) 12 Wakefulness (min.) 49.0 NREM 1 (%) 18 NREM 1 (min.) 67.0 NREM 2 (%) 71 NREM 2 (min.) 263.0 NREM 3 (%) 0 NREM 3 (min.) 0.0 REM (%) 10 REM (min.) 38.0 # Arousals 71 Arousal Index 12 # Snore 3,794 Snore Index 618.6 AHI 3.1 AHI Supine 4 AHI Non-Supine 2 NREM AHI 3.1 REM AHI 3.2 RDI 3.4 # Obstructive Apnea 0 # Central Apnea 0 # Mixed Apnea 0 # Hypopneas 19 RERAs 2 Total Respiratory Events 21 Time Below SpO2 89% (min.) 36.5 Mean NREM SpO2 (%) 90 Mean REM SpO2 (%) 87 Mean Sleep SpO2 (%) 90 Min NREM SpO2 (%) 86 Min REM SpO2 (%) 82 Position Supine (min.) 171.7 Position Non-supine (min.) 209.4 LM Index Sleep 98.5 LM Index NREM 109.1 LM Index REM 6.3 Mean Heart Rate (bpm) 74 Min Heart Rate (bpm) 61
--- NOTE | 2017-01-12 07:43 | Sleep Study ---
Sleep Study Report Date of Service: 01/05/2017 Sleep Study Report Clinical data: The patient is a 46-year-old female with a BMI of 39.86. She has symptoms of snoring, observed apnea, fatigue, headaches, and memory problems. This was an in-lab overnight diagnostic polysomnography. Her [place] Sleepiness Scale score was 10 out of a possible 24. Sleep architecture: The total sleep period was 395.5 minutes. The total sleep time was 368.0 minutes. Sleep efficiency was borderline normal at 88 percent. The sleep latency was 11 minutes. Wake after sleep onset was 38 minutes. The REM latency was severely prolonged to 351.5 minutes. Sleep consisted of stage N1 18 percent, stage N2 71 percent, stage N3 0 percent , stage REM 10 percent. Arousal data: Patient had a total of 71 arousals including 14 spontaneous arousals, 4 respiratory arousals, 47 PLM arousals, and 6 snoring arousals. The arousal index was 12. PLM data: The patient had a total of 604 periodic limb movements of sleep for a PLM index of 98.5. There were 48 arousals associated with limb movements for a PLM arousal index of 7.8. EKG: The underlying cardiac rhythm was normal sinus. The use the cardiac rates ranged from 61 to 98 beats per minute. No cardiac arrhythmia is were noted. Respiratory data: The patient had a total of 19 respiratory events, all hypopneas. Hypopneas were scored according to the 4 percent desaturation rule. The mean duration of the hypopneas was 17.5 seconds. There were no apneas. The apnea-hypopnea index was 3.1 events per hour. This would represent no significant sleep apnea. Oximetry data: For the night the average saturation was 90 percent. The minimum saturation was 80 percent. She had a total of 38.6 minutes with saturations less than 89 percent. Most of the desaturations occurred when she was in REM sleep. [place] Worker Helper's comments: The patient slept on the right, left, and supine positions. No cardiac arrhythmias were noted. PLM Z and many arousals from leg movements were noted. No bruxism noted. Snoring was noted and scored as a 1-2 on a scale of 1 through 5. The patient stated that she slept about the same as usual. Impressions: 1. Periodic limb movement disorder 2. Primary snoring Comments: This patient had a near normal sleep efficiency. Her sleep architecture was abnormal with decreased REM sleep and no stage N3 sleep. Her REM latency was prolonged. She had no significant sleep apnea. Her apnea-hypopnea index was 3.1 which is within the limits of normal. She did have frequent periodic limb movements with a moderate number of arousals. She gave a history of having restless legs in bed and her significant other indicated that she kicks her legs a lot during sleep. She indicated she also move her legs a lot during the day. Her sleep quality and fatigue may be related to the limb movements and the associated arousals. Recommendations: 1. Consideration is given to pharmacologic therapy for the periodic limb movement disorder and restless legs. She is already taking gabapentin in significant doses. Consideration might be given to a trial of pramipexole. 2. Patient has an elevated body mass index of 39.86. Weight loss is advised as typically 1 has less snoring and respiratory events following weight loss. 3. It is suggested that she avoid sleeping in the supine position. During this overnight sleep study she spent 42 percent of the night in the supine position. Copies To 1: Dilip Hebert DO; Keyla Johnston D.O.; Sharla Zimmer M.D.
== END | disposition home or self-care (01) ==
LOC: C.NEUR 21:00
PROVIDERS: ATTEND Internal Medicine Pulmonary Disease
DX: G47.33 Obstructive sleep apnea (adult) (pediatric) (principal)

== ENCOUNTER → 2017-01-11 | Outpatient (CLI) | payer OTHER ==
--- NOTE | 2017-01-11 10:31 | DIAGNOSTIC IMAGING REPORT ---
(CHEST) THORAX WITHOUT CT DOSE: 633.07 mGycm HISTORY: Adenopathy. R59.0 Mediastinal adenopathy please do ct late december [id number] TECHNIQUE: Multiaxial CT images of the chest were performed without contrast. A dose lowering technique was utilized adhering to the principles of ALARA. COMPARISON: 01/07/2016 FINDINGS: Stable mild mediastinal adenopathy. Dominant nodules in the precarinal region measuring 11 mm. This is unchanged. Several shotty axillary nodes also unchanged. There are new no new interval or progressive foci of nodularity 4 mm stable nodule right midlung. Otherwise appear clear. There is no progressive parenchymal pathology. IMPRESSION: 1. Stable exam with no change from the prior study. 2. Mediastinal and axillary rell change showing no change compared to the prior exam 3. Unchanging 4 mm nodule right midlung adjacent to the major fissure. The above report was generated using voice recognition software. It may contain grammatical, syntax or spelling errors. Electronically signed by: Geremias Braun M.D. 01/11/2017 10:30 AM Dictated Date/Time: 01/11/2017 10:25 AM
== END | disposition home or self-care (01) ==
LOC: C.CTS 10:03
PROVIDERS: ATTEND Internal Medicine Pulmonary Disease
DX: R59.0 Localized enlarged lymph nodes (principal)

== ENCOUNTER → 2017-01-23 | Outpatient (CLI) | payer OTHER ==
[2017-01-23 18:07] LABS: ESTIMATED AVERAGE GLUCOSE 120 mg/dl; HA1C FLAG Normal (Normal)
== END | disposition home or self-care (01) ==
LOC: C.LAB1850 11:57
PROVIDERS: ATTEND Internal Medicine Pulmonary Disease
DX: G25.81 Restless legs syndrome (principal); E78.5 Hyperlipidemia, unspecified; R73.9 Hyperglycemia, unspecified

== ENCOUNTER 2017-01-24 02:04 | Emergency (ER) | payer OTHER ==
[~2017-01-24] VITALS: Ht 167.6 cm; Wt 140.0 kg
[~2017-01-24 02:04] MED LIST changes: -ALBINS/ NEB; -ATOR-22 PO; -BACL10TA PO; -CZR50 PO; -DICL-201 PO; -DIPH1TAB PO; -DULO60CA44 PO; -GABA-113 PO; -HYDR12.55 PO; -MONT1TAB5 PO; -PRAM0.256 PO; -PRLSR20 PO; -PROC1TAB5 PO; -PRVHFAIN INH; -ZNTT/150 PO
[2017-01-24 02:09] VITALS: TEMP 36.4; Ht 167.6 cm; Wt 140.0 kg
[2017-01-24] MEDS ORDERED: LIDOCAINE HCL 2% VISC SOLN 20 ML UDC PO STA (02:14)
[2017-01-24] MEDS ORDERED: ALUMINUM/MAGNESIUM SUSP 30 ML UDC PO STA (02:14)
[2017-01-24 02:31] LABS: MEAN CELL VOLUME 90.9 fL (80-100); MEAN CORPUSCULAR HEMOGLOBIN 30.6 pg (25-34); MEAN CORPUSCULAR HGB CONC 33.6 g/dl (32-36); MEAN PLATELET VOLUME 9.6 fL (7.4-10.4); PLATELET COUNT 408 K/uL (130-400); RED BLOOD COUNT 4.84 M/uL (4.2-5.4); WHITE BLOOD COUNT 12.27 K/uL (4.8-10.8)
[2017-01-24 02:32] VITALS: O2SAT 98
[2017-01-24] MEDS ORDERED: DICL-201 PO (02:38)
[2017-01-24 03:00] LABS: ALT/SGPT 36 U/L (12-78); AST/SGOT 21 U/L (15-37); BLOOD UREA NITROGEN 5 mg/dl (7-18); BUN/CREATININE RATIO 8.1 (10-20); CALCIUM 8.5 mg/dl (8.5-10.1); CARBON DIOXIDE 25 mmol/L (21-32); CHLORIDE 110 mmol/L (98-107); CREATININE 0.61 mg/dl (0.60-1.20); GLUCOSE 86 mg/dl (70-99); POTASSIUM 3.2 mmol/L (3.5-5.1); SODIUM 144 mmol/L (136-145)
[2017-01-24] MEDS ORDERED: POTASSIUM CHLORIDE 10 MEQ TABCR PO STA (03:02)
[2017-01-24 03:05] LABS: ALKALINE PHOSPHATASE 99 U/L (45-117)
[2017-01-24 03:11] LABS: BASO % 0.6 %; BASO ABS # 0.07 K/uL (0-0.2); COMPLETE YES; EOS % 2.6 %; IG% 0.5 %; LYMPH % 40.7 %; LYMPH ABS # 4.99 K/uL (1.2-3.4); MONO % 4.6 %
[2017-01-24] MEDS ORDERED: PANTOprazole SOD 40 MG TAB PO STA (04:04)
--- NOTE | 2017-01-24 05:27 | EMERGENCY ROOM VISIT NOTE ---
History First contact with patient: 02:06 Chief Complaint: ABDOMINAL PAIN Stated Complaint: ABDOMINAL PAIN Nursing Triage Summary: Patient arrived via EMS. EMS reports patient layed down for bed and noticed sever right upper quadrant abdominal pain rated at a 7/10. Patient reports history of acid reflux. Patient reports shrimp and spicy sauce for dinner. History of Present Illness The patient is a 46 year old female who presents to the Emergency Room with complaints of epigastric discomfort after eating shrimp with spicy sauce for dinner. Pain currently 7 out of 10. Nothing makes it better or worse. Patient denies chest pain, dyspnea, fever, chills, vomiting, diarrhea, back pain , cold symptoms. She is tolerate by mouth fluids and food. Patient suffers from reflux. Review of Systems See HPI for pertinent positives & negatives. A total of 10 systems reviewed and were otherwise negative. Past Medical/Surgical History Medical Problems: (1) Pneumonia of both lower lobes (2) Sarcoidosis of lung GERD Family History No pertinent family history Social History Smoking Status: Current Some Day Smoker Smokeless Tobacco Use: No Alcohol Use: occasionally Drug Use: none Marital Status: single Housing Status: lives with family Occupation Status: employed Current/Historical Medications Scheduled Atorvastatin (Lipitor), 20 MG PO DAILY Diclofenac (Voltaren), 75 MG PO BID Diclofenac (Voltaren), 75 MG PO BID Duloxetine Hcl (Cymbalta), 60 MG PO DAILY Ferrous Sulfate (Iron), 325 MG PO DAILY Gabapentin (Neurontin), 900 MG PO TID Hydrochlorothiazide (Hydrochlorothiazide), 1 TAB PO DAILY Losartan Potassium (Losartan Potassium), 50 MG PO DAILY Montelukast Sodium (Montelukast Sodium), 1 TAB PO DAILY Omeprazole (Prilosec), 20 MG PO DAILY Pramipexole Dihydrochloride (Pramipexole Dihydrochlori), 0.25 MG PO HS Scheduled PRN Albuterol (Ventolin Hfa), 2 PUFFS INH Q4H PRN for Cough Albuterol Sulf (Proventil 0.083% 2.5MG/3ML), 2.5 MG INH Q4-6 PRN for SOB/ Wheezing Baclofen (Lioresal), 10 MG PO Q8 PRN for PAIN & STIFFNESS & HEADACHES Diphenhydramine Hcl (Benadryl Allergy), 50 MG PO Q4H PRN for ALLERGIC REACTION Prochlorperazine Maleate (Compazine), 10 MG PO Q6H PRN for Nausea Allergies Coded Allergies: Aspirin (Verified Allergy, Unknown, UNKN, 01/24/17) [place] (Unverified Allergy, Unknown, TIGHTNESS OF THROAT,WATERY EYES, 01/24) Penicillins (Verified Allergy, Unknown, Unknown, 01/24/17) Uncoded Allergies: MILDEW (Allergy, Severe, BACTERIAL PNEUMONIA, 03/20/16) MOLD (Allergy, Severe, BACTERIAL PNEUMONIA, 03/20/16) Physical Exam Vital Signs Date Time Temp Pulse Resp B/P (MAP) Pulse Ox O2 Delivery O2 Flow Rate FiO2 01/24/17 04:10 83 18 149/79 99 Room Air 01/24/17 02:32 98 Room Air 01/24/17 02:28 79 01/24/17 02:09 36.4 70 16 156/78 98 Room Air Physical Exam VITALS: Vitals are noted on the nurse's note and reviewed by myself. Vital signs stable. GENERAL: White female, in no acute distress, nondiaphoretic, well-developed well -nourished. SKIN: The skin was without rashes, erythema, edema, or bruising. There is no tenting of the skin. Capillary reflex less than 2 seconds. HEAD: Normocephalic atraumatic. EARS: External auditory canals clear, tympanic membranes pearly farley without erythema or effusion bilaterally. EYES: Pupils equal round and reactive to light and accommodation. Conjunctivae without injection, sclerae without icterus. Extraocular movements intact. NOSE: Patent, turbinates without inflammation or discharge. MOUTH: Mucous membranes moist. Pharynx without erythema or exudate. Uvula midline. Airway patent. Tongue does not deviate. NECK: Supple without nuchal rigidity. No lymphadenopathy. No thyromegaly. Cervical spine is nontender. No JVD. HEART: Regular rate and rhythm without murmurs gallops or rubs. LUNGS: Clear to auscultation bilaterally without wheezes, rales or rhonchi. No dullness to percussion. No retractions or accessory muscle use. ABDOMEN: Positive bowel sounds x 4. Normal tympanic percussion. Soft, minimally tender epigastric region, no CVA tenderness, without masses or organomegaly. Ortiz sign negative. No guarding or rebound tenderness. MUSCULOSKELETAL: No muscle atrophy, erythema, or edema noted. NEURO: Patient was alert and oriented to person place and time. Normal sensation to light and sharp touch. No focal neurological deficits. Medical Decision & Procedures Laboratory Results 01/24/17 02:15 Red Blood Count 4.84, Mean Corpuscular Volume 90.9, Mean Corpuscular Hemoglobin 30.6, Mean Corpuscular Hemoglobin Concent 33.6, Mean Platelet Volume 9.6, Neutrophils (%) (Auto) 51.0, Lymphocytes (%) (Auto) 40.7, Monocytes (%) (Auto) 4.6, Eosinophils (%) (Auto) 2.6, Basophils (%) (Auto) 0.6, Neutrophils # (Auto) 6.27, Lymphocytes # (Auto) 4.99, Monocytes # (Auto) 0.56, Eosinophils # (Auto) 0.32, Basophils # (Auto) 0.07 01/24/17 02:15 Test 01/24/17 02:15 01/24/17 04:19 White Blood Count 12.27 K/uL (4.8-10.8) Red Blood Count 4.84 M/uL (4.2-5.4) Hemoglobin 14.8 g/dL (12.0-16.0) Hematocrit 44.0 % (37-47) Mean Corpuscular Volume 90.9 fL (80-100) Mean Corpuscular Hemoglobin 30.6 pg (25-34) Mean Corpuscular Hemoglobin Concent 33.6 g/dl (32-36) Platelet Count 408 K/uL (130-400) Mean Platelet Volume 9.6 fL (7.4-10.4) Neutrophils (%) (Auto) 51.0 % Lymphocytes (%) (Auto) 40.7 % Monocytes (%) (Auto) 4.6 % Eosinophils (%) (Auto) 2.6 % Basophils (%) (Auto) 0.6 % Neutrophils # (Auto) 6.27 K/uL (1.4-6.5) Lymphocytes # (Auto) 4.99 K/uL (1.2-3.4) Monocytes # (Auto) 0.56 K/uL (0.11-0.59) Eosinophils # (Auto) 0.32 K/uL (0-0.5) Basophils # (Auto) 0.07 K/uL (0-0.2) RDW Standard Deviation 44.3 fL (36.4-46.3) RDW Coefficient of Variation 13.3 % (11.5-14.5) Immature Granulocyte % (Auto) 0.5 % Immature Granulocyte # (Auto) 0.06 K/uL (0.00-0.02) Anion Gap 9.0 mmol/L (3-11) Est Creatinine Clear Calc Drug Dose 164.8 ml/min Estimated GFR () 125.1 Estimated GFR (Non- 108.0 BUN/Creatinine Ratio 8.1 (10-20) Calcium Level 8.5 mg/dl (8.5-10.1) Total Bilirubin 0.2 mg/dl (0.2-1) Direct Bilirubin < 0.1 mg/dl (0-0.2) Aspartate Amino Transf (AST/SGOT) 21 U/L (15-37) Alanine Aminotransferase (ALT/SGPT) 36 U/L (12-78) Alkaline Phosphatase 99 U/L (45-117) Troponin I < 0.015 ng/ml (0-0.045) Total Protein 7.5 gm/dl (6.4-8.2) Albumin 3.6 gm/dl (3.4-5.0) Lipase 198 U/L (73-393) Bedside Troponin I < 0.030 ng/ml (0-0.045) Medications Administered Medications (Trade) Dose Ordered Sig/Gabe Route Start Time Stop Time Status Last Admin Dose Admin Lidocaine HCl (Viscous Lidocaine 2% Soln) 10 ml NOW STAT PO 01/24/17 02:14 01/24/17 02:16 DC 01/24/17 02:14 10 ML Al Hydroxide/Mg Hydroxide (Maalox Susp) 30 ml NOW STAT PO 01/24/17 02:14 01/24/17 02:16 DC 01/24/17 02:14 30 ML Potassium Chloride (Klor-Con M10) 30 meq NOW STAT PO 01/24/17 03:02 01/24/17 03:03 DC 01/24/17 03:49 30 MEQ ED Course Prior records/ancillary studies reviewed. Triage Nursing notes reviewed. Additional history obtained from family The patient's history was concerning for abdominal pain. Differential diagnosis: Etiologies such as appendicitis, diverticulitis, PUD, biliary pathology, UTI, pancreatitis, obstruction, mesenteric ischemia, aortic pathology, infections, inflammatory bowel disease, renal colic, as well as others were entertained. Physical examination findings: As above. ER treatment provided: GI cocktail On reassessment the patient felt better. Diagnostics interpreted by me: ECG: Normal sinus, normal intervals, no acute ST-T wave changes. Impression normal sinus rhythm interpreted by myself The labs revealed troponin negative 2 2 hours apart Mild leukocytosis, hypokalemia Imaging studies: Ultrasound Negative for Cholecystitis Exam and history seem consistent with reflux. Patient felt much better after being medicated as above. She did not have acute abdomen on exam. She is tolerating fluids. She is advised take omeprazole daily as directed and to follow-up family care in a few days or here in the ER sooner for abdominal pain , fevers, vomiting, worsening signs or symptoms or as needed. By the evaluation outlined above emergent etiologies such as appendicitis, diverticulitis, PUD, biliary pathology, UTI, pancreatitis, obstruction, mesenteric ischemia, aortic pathology, infections, inflammatory bowel disease, renal colic, as well as others were deemed relatively unlikely. The pt informed about the findings as listed above. All questions were answered and pleased with the treatment. Return instructions were outlined and the patient was discharged in stable condition. Outpatient prescription management: Omeprazole Referral: The patient was referred back to their primary care physician for follow-up in 2 to 3 days for a recheck of the current condition. Case reviewed with my attending Medical Decision As above Impression Primary Impression: Epigastric discomfort Additional Impression: Hypokalemia Departure Information Dispostion Home / Self-Care Condition GOOD Referrals Sharla Zimmer MD (PCP) Patient Instructions My [facility] Additional Instructions Omeprazole 40 m tablet daily for next 2 weeks. Take this on an empty stomach. Then resume your normal regimen of 20 mg of omeprazole daily. Try Maalox or Zantac for breakthrough symptoms for reflux. Avoid large meals. Avoid acidic foods. Rest and drink plenty of fluids as tolerated. Continue current medications. Avoid strenuous activities and anything that worsens your pain. Resume normal activities once your symptoms resolve. Return to the ER immediately for worsening or persistent chest pain, abdominal pain, black or blood in your stools, vomiting, fevers, chest pains, difficulty breathing, worsening of your condition, or as needed. Follow up with your primary physician in 2-3 days for a recheck of your current condition. Problem Qualifiers
[2017-01-24] MEDS ORDERED: PRLSR20 PO (05:28)
[2017-01-24 05:48] VITALS: BP 145/86; PULSE 76; O2SAT 100
--- NOTE | 2017-01-24 06:43 | DIAGNOSTIC IMAGING REPORT ---
ABDOMINAL ULTRASOUND, RIGHT UPPER QUADRANT HISTORY: Epigastric pain. COMPARISON: None. FINDINGS: Liver morphology is normal. No hepatic lesions are identified. There are no gallstones. No biliary ductal dilatation is present. The pancreas is partially obscured. There is no right hydronephrosis. IMPRESSION: No gallstones or biliary ductal dilatation. Electronically signed by: Dale Rodrigez M.D. 01/24/2017 6:42 AM Dictated Date/Time: 01/24/2017 6:40 AM
[2017-02-08] MEDS ORDERED: PRVHFAIN INH (02:09)
[2017-02-08] MEDS ORDERED: ALBINS/ NEB (02:16)
[2017-02-08] MEDS ORDERED: BACL10TA PO (02:18)
[2017-02-08] MEDS ORDERED: PROC1TAB5 PO (02:19)
[2017-02-08] MEDS ORDERED: MONT1TAB5 PO (02:37)
[2017-02-08] MEDS ORDERED: DULO60CA44 PO (02:38)
[2017-02-08] MEDS ORDERED: HYDR12.55 PO (02:40)
[2017-02-08] MEDS ORDERED: PRAM0.256 PO (02:40)
[2017-02-08] MEDS ORDERED: CZR50 PO (10:46)
[2017-02-08] MEDS ORDERED: DIPH1TAB PO (12:45)
[2017-02-08] MEDS ORDERED: DICL-201 PO (12:45)
[2017-02-08] MEDS ORDERED: GABA-113 PO (12:45)
[2017-02-08] MEDS ORDERED: PRLSR20 PO (15:01)
[2017-02-08] MEDS ORDERED: ATOR-22 PO (15:01)
[2017-02-10] MEDS ORDERED: ZNTT/150 PO (09:14)
== END 2017-01-24 05:51 | disposition home or self-care (01) ==
LOC: EDBD 02:04 → C.EDB 02:05
DX: R10.13 Epigastric pain (principal); E87.6 Hypokalemia; K21.9 Gastro-esophageal reflux disease without esophagitis; F17.200 Nicotine dependence, unspecified, uncomplicated; Z79.899 Other long term (current) drug therapy; Z88.0 Allergy status to penicillin; Z88.6 Allergy status to analgesic agent; Z91.018 Allergy to other foods

== ENCOUNTER 2017-02-08 18:12 | Emergency (ER) | payer OTHER ==
[~2017-02-08] VITALS: Ht 154.9 cm; Wt 97.7 kg
[~2017-02-08 18:12] MED LIST changes: +ALBINS/ NEB; +ATOR-22 PO; +BACL10TA PO; +CZR50 PO; +DICL-201 PO; +DIPH1TAB PO; +DULO60CA44 PO; -ESCI1TAB10 PO; +GABA-113 PO; +HYDR12.55 PO; -HYDR200T5 PO; -HYDR25TA5 PO; -METH500T37 PO; +MONT1TAB5 PO; +PRAM0.256 PO; +PRLSR20 PO; +PROC1TAB5 PO; +PRVHFAIN INH; -RRIPRATNEB NEB
[2017-02-08 18:40] VITALS: TEMP 36.9; Ht 154.9 cm; Wt 97.7 kg
[2017-02-08] MEDS ORDERED: KETOROLAC TROMETHAMINE 60 MG/2 ML VIAL IM STA (19:00)
[2017-02-08] MEDS ORDERED: BACLOFEN TAB 20 MG TAB PO STA (19:00)
[2017-02-08] MEDS ORDERED: ACETAMINOPHEN 500 MG TAB PO STA (19:00)
--- NOTE | 2017-02-08 19:33 | EMERGENCY ROOM VISIT NOTE ---
ED Visit Note First contact with patient: 18:47 CHIEF COMPLAINT: Neck/mid back pain HISTORY OF PRESENT ILLNESS: This 46-year-old female patient presents to the emergency department, ambulatory, with her , complaining of pain in the neck on the right side, right and left-sided back pain in the middle of the back , and pain between the shoulder blades for 3 days. The patient states the symptoms began 3 days ago after doing a lot of repetitive motion at work. She states she does have a history of cervical stenosis and a lumbar bulging disc. The patient has history of similar back pain, does flare-up with repetitive motion. She states for the past 3 days she has been experiencing right-sided neck and back pain, with back pain worse on the left. The patient rates the pain as sharp and 10/10. The patient has taken her regular medications, however has not taken any baclofen or OTC ibuprofen or Tylenol for the pain. The patient does have a history of previous neck problems. The patient denies pain of the arms and shoulders. The patient denies numbness and tingling. The patient denies chest pain or shortness of breath. There was no head injury and no loss of consciousness. The patient denies headache, blurred vision, abdominal pain, nausea, or vomiting. The patient denies change in personality. REVIEW OF SYSTEMS: A 10 system system review of systems was completed with positives and pertinent negatives listed in the HPI. ALLERGIES: Aspirin, penicillins, oranges, mold MEDICATIONS: Please see list. I did personally review the patient's medication list at bedside. PMH: Cervical stenosis, lumbar herniated disc, GERD, hypertension, hyperlipidemia, depression/anxiety, restless leg syndrome, vitamin D deficiency SOCIAL HISTORY: The patient lives locally with family. She denies drug, alcohol use. The patient states she does smoke approximately one pack of cigarettes per day. PHYSICAL EXAM: VITALS: Vitals are noted on the nurse's note and reviewed by myself. Vital signs stable. GENERAL: This is a 46-year-old female, in no acute distress, nondiaphoretic, well-developed well-nourished. SKIN: Capillary reflex less than 2 seconds. HEENT: Normocephalic. PERRLA. EOMI. Nares patent. Mucous membranes moist. Neck is supple without nuchal rigidity. Cervical spine is not tender to palpation. The patient has mild tenderness of the paraspinal muscles on the right in the neck, but on the left in the thoracic region. There is no lymphadenopathy. MUSCULOSKELETAL: The patient has full range of motion of the bilateral arms. Strength 5/5 of the bilateral upper extremities. The patient has tenderness with turning and lateral bending of the neck. NEURO: Patient was alert and oriented to person place and time. Normal sensation to light and sharp touch. No focal neurologic deficits. EMERGENCY DEPARTMENT COURSE: I examined the patient. The patient was given Toradol IM and by mouth baclofen and Tylenol. She did note moderate improvement of her symptoms, but continued to have some slight discomfort in her neck. Did offer to update x-rays of her neck, however I do not feel this is necessary, as the patient's pain is all in the muscles and not spine. The patient did decline this x-ray. I advised the patient to let me know when she is ready for discharge, and she states she would like to go home at this time. The patient was discharged home in good condition. I attest that I have personally reviewed the patient's current medication list. Patient was found to have normal blood pressure on screening and does not require follow-up. DIFFERENTIAL DIAGNOSIS: Back pain, thoracic strain, cervical strain, contusion, fracture, spinal stenosis, malignancy, bulging disc, and others DIAGNOSIS: Chronic back pain Current/Historical Medications Scheduled Atorvastatin (Lipitor), 20 MG PO DAILY Diclofenac (Voltaren), 75 MG PO BID Duloxetine Hcl (Cymbalta), 60 MG PO DAILY Gabapentin (Neurontin), 900 MG PO TID Hydrochlorothiazide (Hydrochlorothiazide), 1 TAB PO DAILY Losartan Potassium (Losartan Potassium), 50 MG PO DAILY Montelukast Sodium (Montelukast Sodium), 1 TAB PO DAILY Omeprazole (Prilosec), 20 MG PO DAILY Pramipexole Dihydrochloride (Pramipexole Dihydrochlori), 0.25 MG PO HS Scheduled PRN Albuterol (Ventolin Hfa), 2 PUFFS INH Q4H PRN for Cough Albuterol Sulf (Proventil 0.083% 2.5MG/3ML), 2.5 MG INH Q4-6 PRN for SOB/ Wheezing Baclofen (Lioresal), 10 MG PO Q8 PRN for PAIN & STIFFNESS & HEADACHES Diphenhydramine Hcl (Benadryl Allergy), 50 MG PO Q4H PRN for ALLERGIC REACTION Prochlorperazine Maleate (Compazine), 10 MG PO Q6H PRN for Nausea Allergies Coded Allergies: Aspirin (Verified Allergy, Unknown, UNKN, 01/24/17) [place] (Unverified Allergy, Unknown, TIGHTNESS OF THROAT,WATERY EYES, 01/24) Penicillins (Verified Allergy, Unknown, Unknown, 01/24/17) Uncoded Allergies: [place]DE[place] (Allergy, Severe, BACTERIAL PNEUMONIA, 03/20/16) MOLD (Allergy, Severe, BACTERIAL PNEUMONIA, 03/20/16) Vital Signs Date Time Temp Pulse Resp B/P (MAP) Pulse Ox O2 Delivery O2 Flow Rate FiO2 02/08/17 19:55 78 18 131/100 94 02/08/17 18:40 36.9 76 18 128/86 94 Room Air Medications Administered Medications (Trade) Dose Ordered Sig/Gabe Route Start Time Stop Time Status Last Admin Dose Admin Ketorolac Tromethamine (Toradol Inj) 60 mg NOW STAT IM 02/08/17 19:00 02/08/17 19:02 DC 02/08/17 19:21 60 MG Acetaminophen (Tylenol Tab) 1,000 mg NOW STAT PO 02/08/17 19:00 02/08/17 19:02 DC 02/08/17 19:18 1,000 MG Baclofen (Lioresal Tab) 20 mg NOW STAT PO 02/08/17 19:00 02/08/17 19:02 DC 02/08/17 19:20 20 MG Departure Information Impression Primary Impression: Chronic back pain Dispostion Home / Self-Care Condition GOOD Referrals Sharla Zimmer MD (PCP) Patient Instructions ED Neck Back Pain General, [facility] Additional Instructions You have been treated in the Emergency Department for Back Pain. You have received pain medicine in the emergency department which impairs your ability to operate a vehicle. It is illegal for you to drive after receiving these medicines. Please take your regularly prescribed baclofen, three times per day. You were given baclofen here in the emergency department. You may not need to take another dose this evening. Take your first dose at bedtime as it can make you drowsy. Always take all medications as prescribed. Please continue to take your regularly prescribed medications for your pain. As discussed, the emergency Department is not the best place for chronic pain management, and she will need to follow up with your primary care provider this week. For pain control, you can use the following [id number] medicines (if >12 yo): Ibuprofen(Motrin, Advil) may be used for fever or pain. Use 600mg every six hours as needed. Take with food. Avoid using more than 2400mg in a 24 hour period. Do not use 2400mg per day for more than three consecutive days without physician direction. Prolonged inappropriate use can lead to stomach upset or ulcers. (AND/OR) Acetaminophen(Tylenol) may be used for fever or pain. Use 1000mg every six hours as needed. Avoid using more than 3000mg in a 24 hour period. If this is an acute injury, ice can be applied to the area of pain for the first 3 days to help decrease pain and inflammation. After the first 3 days, a heating pad can be used over the area for continued soothing relief. You should schedule a follow-up appointment in 2-3 days with your Primary Care Provider for further evaluation and treatment of your back pain. Consider referral to pain management for your chronic back pain. Return to the Emergency Department if your current symptoms worsen despite treatment course outlined above, or if you develop any of the following symptoms : intractable pain despite aforementioned treatment course, loss of control of your bowel or bladder, numbness or tingling in your groin, or development of a fever. Problem Qualifiers Primary Impression: Chronic back pain Back pain location: thoracic back pain Back pain laterality: bilateral Qualified Codes: M54.6 - Pain in thoracic spine; G89.29 - Other chronic pain
[2017-02-08 19:55] VITALS: BP 131/100; PULSE 78; O2SAT 94
[2017-02-10] MEDS ORDERED: ZNTT/150 PO (09:14)
== END 2017-02-08 19:55 | disposition home or self-care (01) ==
LOC: C.EDB 18:14 → C.EDD 19:55
DX: M54.6 Pain in thoracic spine (principal); G89.29 Other chronic pain; M48.02 Spinal stenosis, cervical region; M51.26 Other intervertebral disc displacement, lumbar region; K21.9 Gastro-esophageal reflux disease without esophagitis; I10 Essential (primary) hypertension; E78.5 Hyperlipidemia, unspecified; F32.9 Major depressive disorder, single episode, unspecified; F41.9 Anxiety disorder, unspecified; G25.81 Restless legs syndrome; E55.9 Vitamin D deficiency, unspecified; F17.210 Nicotine dependence, cigarettes, uncomplicated; Z79.899 Other long term (current) drug therapy

== ENCOUNTER → 2017-02-14 | Outpatient (CLI) | payer OTHER ==
[~2017-02-14] MED LIST changes: -FERR1TAB23 PO; +ZNTT/150 PO
--- NOTE | 2017-02-14 08:33 | DIAGNOSTIC IMAGING REPORT ---
ULTRASOUND RIGHT UPPER QUADRANT ABDOMEN CLINICAL HISTORY: Epigastric abdominal pain. COMPARISON STUDY: Abdominal ultrasound dated 01/24/2017. TECHNIQUE: Real-time, grayscale, and color flow sonography of the right upper quadrant of the abdomen was performed. Images are reviewed in the transverse and longitudinal planes. FINDINGS: Liver: The liver is normal in size and echotexture. There is no intrahepatic biliary ductal dilatation. The main portal vein is patent. Gallbladder: The gallbladder is normal in appearance. No gallstones are identified. There is no gallbladder wall thickening or pericholecystic fluid. A sonographic Ortiz's sign is reportedly absent. The common bile duct measures up to 0.6 cm in diameter. Pancreas: Visualized portions of the pancreatic head and body are normal in appearance. Right kidney: Survey images of the right kidney demonstrate normal size and echotexture. There is no hydronephrosis. Ascites: None. IMPRESSION: Unremarkable sonographic assessment of the right upper quadrant. No gallstones are seen and there has been no change from study performed 01/24/2017. Electronically signed by: Mark Ruano M.D. 02/14/2017 8:31 AM Dictated Date/Time: 02/14/2017 8:27 AM
== END | disposition home or self-care (01) ==
LOC: C.ULTRBC 07:45
PROVIDERS: ATTEND Nurse Practitioner Family
DX: K21.9 Gastro-esophageal reflux disease without esophagitis (principal); R10.13 Epigastric pain

== ENCOUNTER → 2017-04-05 | Day surgery (SDC) | payer OTHER ==
[2017-03-01 13:11] VITALS: Ht 154.9 cm; Wt 96.8 kg
[~2017-04-05] VITALS: Ht 154.9 cm; Wt 96.8 kg
[~2017-04-05] MED LIST changes: -DIPH1TAB PO; +DIPH1TAB87 PO; -GABA-113 PO; +GABA600T PO; +LIDOCAINE HCL 2% 2 ML VIAL (20MG/ML) ONE; -PRLSR20 PO; -PROC1TAB5 PO; +PROPOFOL IV EMULSION 10 MG/ML 20 ML VIAL IV ONE; +SODIUM CHLORIDE 0.9% 500ML 500 ML IV ONE
--- NOTE | 2017-04-05 14:01 | Endo History and Physical ---
History & Physical Date of Service: Apr 05, 2017. Chief Complaint: Reflux, dysphagia Referring Physician: Dr Zimmer History of Present Illness 47 yo CF who presents for EGD secondary to GERD and dysphagia. Past Medical History Arthritis, Anxiety, Reflux, High Cholesterol, Hypertension, Depression Past Surgical History Hx Cardiac Surgery: No Hx Internal Defibrillator: No Hx Pacemaker: No Hx Abdominal Surgery: No Hx of Implantable Prosthesis: No Hx Post-Op Nausea and Vomiting: No Hx Cancer Surgery: No Hx Thoracic Surgery: No Hx Orthopedic: No Hx Urinary Tract Surgery: No Family History None Social History Smoking Status: Current Every Day Smoker Hx Substance Use: No Hx Alcohol Use: Yes (OCCASIONALLY ONCE A WEEK) Allergies Coded Allergies: Iodinated Diagnostic Agents (Verified Allergy, Mild, HIVES, 04/05/17) Aspirin (Verified Allergy, Unknown, TOLD NOT TAKE D/T ACID REFLUX, ) [place] (Verified Allergy, Unknown, TIGHTNESS OF THROAT,WATERY EYES, ) Penicillins (Verified Allergy, Unknown, HIVES, 03/01/17) Uncoded Allergies: MILDEW (Allergy, Severe, BACTERIAL PNEUMONIA, 03/20/16) MOLD (Allergy, Severe, BACTERIAL PNEUMONIA, 03/20/16) Current Medications Reported Home Medications Medications Dose Route/Sig Max Daily Dose Days Date Category Dose Instructions Neurontin (Gabapentin) 600 Mg Tab 1,200 Mg PO TID 03/01/17 Reported Zantac (Ranitidine HCl) 150 Mg Tab 150 Mg PO BID 02/10/17 Reported Hydrochlorothiazide 12.5 Mg Tab 12.5 Mg PO QAM 01/24/17 Reported Pramipexole Dihydrochlori (Pramipexole Dihydrochloride) 0.25 Mg Tab 0.25 Mg PO HS 01/24/17 Reported TAKE THIS MEDICATION ONE HOUR BEFORE BED Cymbalta (Duloxetine Hcl) 60 Mg Cap 60 Mg PO QAM 01/24/17 Reported Montelukast Sodium 10 Mg Tab 10 Mg PO QAM 01/24/17 Reported Lioresal (Baclofen) 10 Mg Tab 10 Mg PO Q8 PRN 11/18/16 Reported Proventil 0.083% 2.5MG/3ML (Albuterol Sulf) 2.5 Mg/3 Ml Nebu 2.5 Mg NEB Q4-6HRS PRN 11/18/16 Reported Ventolin Hfa (Albuterol) 60 Puffs/5400 Mcg Aers 2 Puffs INH Q4H PRN 11/18/16 Reported Losartan Potassium 50 Mg Tab 50 Mg PO QAM 07/12/16 Reported Benadryl Allergy (Diphenhydramine Hcl) 25 Mg Tab 50 Mg PO Q4H PRN 03/18/16 Reported Voltaren (Diclofenac Sodium) 75 Mg Tabcr 75 Mg PO BID 03/18/16 Reported TAKE THIS MEDICATION WITH FOOD Lipitor (Atorvastatin Calcium) 20 Mg Tab 20 Mg PO QAM 12/01/15 Reported Vital Signs Weight (Kilograms): 96.82 Height (Feet): 5 Height (Inches): 1 Date Time Temp Pulse Resp B/P (MAP) Pulse Ox O2 Delivery O2 Flow Rate FiO2 04/05/17 13:44 36.7 85 20 141/83 (102) 94 Room Air Physical Exam General Appearance: WD/WN, no apparent distress Respiratory/Chest: Auscultation: breath sounds normal Cardiovascular: Heart Auscultation: RRR Abdomen: Bowel Sounds: normal Inspection & Palpation: soft, non-distended, no tenderness, guarding & rebound Assessment and Plan Assessment: 47 yo CF who presents for EGD secondary to GERD and dysphagia. Plan: Proceed with EGD.
--- NOTE | 2017-04-05 14:30 | GI REPORT ---
Procedure Date: 04/05/2017 1:34 PM Procedure: Upper GI endoscopy Indications: Dysphagia, Gastro-esophageal reflux disease Medicines: Monitored Anesthesia Care Complications: No immediate complications. Estimated Blood Loss: Estimated blood loss: none. Procedure: Pre-Anesthesia Assessment: - Prior to the procedure, a History and Physical was performed, and patient medications and allergies were reviewed. The patient's tolerance of previous anesthesia was also reviewed. The risks and benefits of the procedure and the sedation options and risks were discussed with the patient. All questions were answered, and informed consent was obtained. Prior Anticoagulants: The patient has taken no previous anticoagulant or antiplatelet agents. ASA Grade Assessment: III - A patient with severe systemic disease. After reviewing the risks and benefits, the patient was deemed in satisfactory condition to undergo the procedure. After obtaining informed consent, the endoscope was passed under direct vision. Throughout the procedure, the patient's blood pressure, pulse, and oxygen saturations were monitored continuously. The On-site loaner was introduced through the mouth, and advanced to the second part of duodenum. The upper GI endoscopy was accomplished without difficulty. The patient tolerated the procedure well. Findings: A mild Schatzki ring (acquired) was found at the gastroesophageal junction. A TTS dilator was passed through the scope. Dilation with an 18-19-20 mm balloon (to a maximum balloon size of 20 mm) dilator was performed. The dilation site was examined and showed no change. Biopsies were taken with a cold forceps for histology. A small hiatus hernia was present. Localized mild inflammation characterized by erythema was found in the gastric antrum. Biopsies were taken with a cold forceps for histology. The examined duodenum was normal. Impression: - Mild Schatzki ring. Dilated. Biopsied. - Small hiatus hernia. - Gastritis. Biopsied. - Normal examined duodenum. Recommendation: - Resume previous diet. - Continue present medications. - Await pathology results. - Return to primary care physician as previously scheduled. Deondre Godinez, DO 04/05/2017 2:30:08 PM This report has been signed electronically. Note Initiated On: 04/05/2017 1:34 PM I attest to the content of the Intraoperative Record and orders documented therein, exceptions below
--- NOTE | 2017-04-05 14:45 | Discharge Instructions ---
Endoscopy Patient Instructions Date / Procedure(s) Performed Apr 05, 2017. EGD Allergy Information Coded Allergies: Iodinated Diagnostic Agents (Verified Allergy, Mild, HIVES, 04/05/17) Aspirin (Verified Allergy, Unknown, TOLD NOT TAKE D/T ACID REFLUX, ) [place] (Verified Allergy, Unknown, TIGHTNESS OF THROAT,WATERY EYES, ) Penicillins (Verified Allergy, Unknown, HIVES, 03/01/17) Uncoded Allergies: MILDEW (Allergy, Severe, BACTERIAL PNEUMONIA, 03/20/16) MOLD (Allergy, Severe, BACTERIAL PNEUMONIA, 03/20/16) Discharge Date / Findings Apr 05, 2017. Schatzki's Ring s/p dilation and biopsies Hiatal hernia Gastritis s/p biopsies Medication Instructions OK to resume all medications today as prescribed Reported Home Medications Medications Dose Route/Sig Max Daily Dose Days Date Category Dose Instructions Neurontin (Gabapentin) 600 Mg Tab 1,200 Mg PO TID 03/01/17 Reported Zantac (Ranitidine HCl) 150 Mg Tab 150 Mg PO BID 02/10/17 Reported Hydrochlorothiazide 12.5 Mg Tab 12.5 Mg PO QAM 01/24/17 Reported Pramipexole Dihydrochlori (Pramipexole Dihydrochloride) 0.25 Mg Tab 0.25 Mg PO HS 01/24/17 Reported TAKE THIS MEDICATION ONE HOUR BEFORE BED Cymbalta (Duloxetine Hcl) 60 Mg Cap 60 Mg PO QAM 01/24/17 Reported Montelukast Sodium 10 Mg Tab 10 Mg PO QAM 01/24/17 Reported Lioresal (Baclofen) 10 Mg Tab 10 Mg PO Q8 PRN 11/18/16 Reported Proventil 0.083% 2.5MG/3ML (Albuterol Sulf) 2.5 Mg/3 Ml Nebu 2.5 Mg NEB Q4-6HRS PRN 11/18/16 Reported Ventolin Hfa (Albuterol) 60 Puffs/5400 Mcg Aers 2 Puffs INH Q4H PRN 11/18/16 Reported Losartan Potassium 50 Mg Tab 50 Mg PO QAM 07/12/16 Reported Benadryl Allergy (Diphenhydramine Hcl) 25 Mg Tab 50 Mg PO Q4H PRN 03/18/16 Reported Voltaren (Diclofenac Sodium) 75 Mg Tabcr 75 Mg PO BID 03/18/16 Reported TAKE THIS MEDICATION WITH FOOD Lipitor (Atorvastatin Calcium) 20 Mg Tab 20 Mg PO QAM 12/01/15 Reported Provider Instructions Activity Restrictions - No exercising or heavy lifting for 24 hours. - Do not drink alcohol the day of the procedure. - Do not drive a car or operate machinery until the day after the procedure. - Do not make any important decisions or sign important papers in 24 hours after the procedure. Following Day: - Return to full activity which may include returning to work/school. Diet Start your diet with liquids and light foods (jello, soup, juice, toast). Then eat your usual diet if not nauseated. Treatment For Common After Affects For mild abdominal pain, bloating, or excessive gas: - Rest - Eat lightly - Lie on right side Follow-Up Information Follow-up with Dr Zimmer as scheduled Anesthesia Information What You Should Know You have had a procedure that required some medicine to reduce anxiety and discomfort. This treatment is called moderate sedation. After receiving the treatment, you may be sleepy, but you will be able to breathe on your own. The effects of the treatment may last for several hours. Follow these instructions along with Activity/Diet recommendations noted above: * Do NOT do anything where dizziness or clumsiness would be dangerous. * Rest quietly at home today, then you can be up and about tomorrow. * Have a responsible person stay with you the rest of today. * You may have had an I.V. today. If so, you may take the dressing off later today. Recommendations Call your doctor if: * Trouble breathing * Continuous vomiting for more than 24 hours * Temperature above 101 degrees * Severe abdominal pain or bloating * Pain not relieved by pain medicine ordered * There is increased drainage or redness from any incision * A large amount of rectal bleeding greater than 2-3 tablespoons. (If you had a polyp/s removed or have hemorrhoids, a small amount of blood - from the rectum is to be expected.) * You have any unanswered questions or concerns. IN THE EVENT OF A SERIOUS EMERGENCY, GO TO THE NEAREST EMERGENCY ROOM Your discharge instructions were prepared by provider Deondre Godinez. Patient Instructions Signature Page Ginna Yung Patient (or Guardian) Signature/Date: I have read and understand the instructions given to me by my caregivers. Caregiver/RN/Doctor Signature/Date: The above-named patient and/or guardian has received patient instructions on this date. + Original Patient Signature Page (only) stays with chart. Please make copy for patient.
[2017-04-05 14:51] VITALS: BP 151/90; PULSE 81; O2SAT 98
--- NOTE | 2017-04-05 14:51 | Anesthesiology Progress Note ---
Anesthesia Post Op Note Date & Time Apr 05, 2017 at 14:51 Vital Signs Pain Intensity: 3 Vital Signs Past 12 Hours Date Time Temp Pulse Resp B/P (MAP) Pulse Ox O2 Delivery O2 Flow Rate FiO2 04/05/17 14:36 89 16 136/87 (103) 97 Room Air 04/05/17 14:21 84 16 121/58 (79) 96 Room Air 04/05/17 13:44 36.7 85 20 141/83 (102) 94 Room Air Notes Mental Status: alert / awake / arousable, participated in evaluation Pt Amnestic to Procedure: Yes Nausea / Vomiting: adequately controlled Pain: adequately controlled Airway Patency, RR, SpO2: stable & adequate BP & HR: stable & adequate Hydration State: stable & adequate Anesthetic Complications: no major complications apparent
== END | disposition home or self-care (01) ==
LOC: C.GI 12:45
PROVIDERS: ATTEND Internal Medicine
DX: K21.9 Gastro-esophageal reflux disease without esophagitis (principal); R13.10 Dysphagia, unspecified; K44.9 Diaphragmatic hernia without obstruction or gangrene; K29.70 Gastritis, unspecified, without bleeding; M19.90 Unspecified osteoarthritis, unspecified site; F41.9 Anxiety disorder, unspecified; E78.00 Pure hypercholesterolemia, unspecified; I10 Essential (primary) hypertension; F32.9 Major depressive disorder, single episode, unspecified; F17.200 Nicotine dependence, unspecified, uncomplicated; Z88.0 Allergy status to penicillin; Z91.041 Radiographic dye allergy status; E78.5 Hyperlipidemia, unspecified; E66.9 Obesity, unspecified; G25.81 Restless legs syndrome

== ENCOUNTER 2017-05-03 17:09 | Emergency (ER) | payer OTHER ==
[~2017-05-03] VITALS: Ht 154.9 cm; Wt 98.7 kg
[~2017-05-03 17:09] MED LIST changes: -LIDOCAINE HCL 2% 2 ML VIAL (20MG/ML) ONE; -PROPOFOL IV EMULSION 10 MG/ML 20 ML VIAL IV ONE; -SODIUM CHLORIDE 0.9% 500ML 500 ML IV ONE
[2017-05-03 17:13] VITALS: TEMP 36.4; Ht 154.9 cm; Wt 98.7 kg
[2017-05-03] MEDS ORDERED: KETOROLAC TROMETHAMINE 30 MG/ML VIAL IV STA (17:37)
[2017-05-03] MEDS ORDERED: ONDANSETRON INJ 2 MG/ML 2 ML VIAL IV STA (17:37)
[2017-05-03] MEDS ORDERED: ALBUT/IPRATROP 3MG/0.5MG NEB 3 ML VIAL INH STA (17:37)
[2017-05-03] MEDS ORDERED: SODIUM CHLORIDE 0.9% 1000ML 1,000 ML IV STA (17:37)
[2017-05-03] MEDS ORDERED: PANT40TA PO (17:55)
[2017-05-03] MEDS ORDERED: ACET-1256 PO (17:55)
[2017-05-03 18:15] LABS: BASO % 0.4 %; BASO ABS # 0.05 K/uL (0-0.2); COMPLETE YES; EOS % 2.3 %; HEMATOCRIT 42.4 % (37-47); IG% 0.5 %; LYMPH % 29.4 %; LYMPH ABS # 3.77 K/uL (1.2-3.4); MEAN CELL VOLUME 89.5 fL (80-100); MEAN CORPUSCULAR HGB CONC 34.7 g/dl (32-36); MONO % 4.8 %; NEUT % 62.6 %; PLATELET COUNT 466 K/uL (130-400); RED BLOOD COUNT 4.74 M/uL (4.2-5.4); WHITE BLOOD COUNT 12.83 K/uL (4.8-10.8)
--- NOTE | 2017-05-03 18:18 | DIAGNOSTIC IMAGING REPORT ---
CHEST ONE VIEW PORTABLE CLINICAL HISTORY: Chest pain. COMPARISON STUDY: Chest radiograph April 26, [address] January 11, 2017. FINDINGS: Lung volumes are normal. No pneumothorax or pleural effusion is present. There is no consolidation. Mild interstitial thickening is unchanged. This is likely chronic. Cardiomediastinal silhouette is stable. IMPRESSION: 1. No acute cardiopulmonary findings. 2. Mild interstitial thickening, likely chronic. Electronically signed by: Dale Rodrigez M.D. 05/03/2017 6:17 PM Dictated Date/Time: 05/03/2017 6:15 PM
[2017-05-03 18:23] LABS: POINT OF CARE TROPONIN I < 0.030 ng/ml (0-0.045)
[2017-05-03 18:32] LABS: ALT/SGPT 34 U/L (12-78); BLOOD UREA NITROGEN 8 mg/dl (7-18); BUN/CREATININE RATIO 11.4 (10-20); CALCIUM 9.4 mg/dl (8.5-10.1); CARBON DIOXIDE 28 mmol/L (21-32); CHLORIDE 103 mmol/L (98-107); CREATININE 0.69 mg/dl (0.60-1.20); GLUCOSE 82 mg/dl (70-99); POTASSIUM 3.7 mmol/L (3.5-5.1); SODIUM 136 mmol/L (136-145)
[2017-05-03 18:33] LABS: INR 0.9 (0.9-1.1); PROTHROMBIN TIME (PATIENT) 9.5 SECONDS (9.0-12.0)
[2017-05-03 18:35] LABS: URINE APPEARANCE CLEAR (CLEAR); URINE BILIRUBIN NEG (NEG); URINE COLOR YELLOW; URINE NITRITE NEG (NEG); URINE PH 6.5 (4.5-7.5); URINE SPECIFIC GRAVITY 1.009 (1.000-1.030); UROBILINOGEN NEG (NEG)
[2017-05-03 18:35] LABS: ALKALINE PHOSPHATASE 107 U/L (45-117); AST/SGOT 17 U/L (15-37)
[2017-05-03 18:57] LABS: MANUAL MICROSCOPIC REQUIRED? NO; REVIEW REQ? NO
[2017-05-03] MEDS ORDERED: DiphenhydrAMINE HCL 50 MG/ML VIAL IV STA (18:58)
[2017-05-03] MEDS ORDERED: METHYLPREDNISOLONE 125 MG VIAL IV STA (18:58)
[2017-05-03] MEDS ORDERED: FAMOTIDINE 20MG/5ML IV PUSH IV STA (18:58)
[2017-05-03] MEDS ORDERED: OPTIRAY 320 IV PRN (20:00)
--- NOTE | 2017-05-03 20:05 | DIAGNOSTIC IMAGING REPORT ---
CT ANGIOGRAM OF THE CHEST CLINICAL HISTORY: Atypical chest pain. COMPARISON STUDY: Chest x-ray dated 05/03/2017. Chest CT scans dated 01/11/2017 and 08/22/2015. TECHNIQUE: Following the IV administration of 90 cc of Optiray 320, CT angiogram of the chest was performed from the upper abdomen to the thoracic inlet utilizing the pulmonary embolus protocol. Images are reviewed in the axial, sagittal, and coronal planes. 3-D MIPS images are created and assessed. IV contrast was administered without complication. The patient was premedicated for a reported history of contrast allergy. A dose lowering technique was utilized adhering to the principles of ALARA. Examination is modestly degraded by motion artifact. CT DOSE: 688.26 mGy.cm FINDINGS: Thyroid: Imaged portions of the thyroid gland are normal in size and attenuation. Thoracic aorta: There is mild atherosclerotic calcification of the thoracic aorta, which is normal in caliber and demonstrates standard 3-vessel arch anatomy. No dissection is seen. Pulmonary vasculature: The pulmonary trunk is normal in caliber. There are no filling defects identified in main, lobar, or segmental pulmonary branches to suggest pulmonary embolus. Heart: The heart is normal in size and configuration, and without pericardial effusion. Lungs and pleural spaces: There is no airspace consolidation or pleural effusion. Mild diffuse peribronchial thickening suggests reactive airway disease. Foci of air trapping are present in the lower lobes. The trachea and central airways are clear. A 4 mm focus of pleural-based nodularity in the right lower lobe along the major fissure seen on image #143 is unchanged from prior studies. Mediastinum: Mildly enlarged mediastinal lymph nodes are similar to previous. A subcarinal node on image #158 measures 1.6 cm in short axis. A pretracheal node on image #192 measures 1.3 cm in short axis. Felisa: Clear. Axillae: Shotty axillary lymph nodes are similar to previous. Upper abdomen: Partially visualized upper abdominal viscera is within normal limits. Skeletal structures: No lytic or blastic bony lesions are seen. IMPRESSION: 1. There is no evidence of pulmonary embolus in the main, lobar, or segmental pulmonary arteries. 2. There is no airspace consolidation or pleural effusion. 3. Diffuse peribronchial thickening suggests reactive airway disease. Clinical correlation will be required. 4. Mildly enlarged mediastinal lymph nodes are similar to prior studies and of indeterminant significance. Electronically signed by: Mark Ruano M.D. 05/03/2017 8:04 PM Dictated Date/Time: 05/03/2017 7:59 PM
[2017-05-03] MEDS ORDERED: AZITHROMYCIN 250 MG TAB PO STA (20:22)
[2017-05-03] MEDS ORDERED: VNTHFA/IN INH (20:27)
[2017-05-03] MEDS ORDERED: PRED20TA2 PO (20:27)
[2017-05-03] MEDS ORDERED: AZIT250T PO (20:27)
[2017-05-03 21:16] VITALS: BP 163/92; PULSE 70; O2SAT 95
--- NOTE | 2017-05-04 16:28 | EMERGENCY ROOM VISIT NOTE ---
ED Visit Note First contact with patient: 17:22 Chief Complaint: Cough and lung pain. History of Present Illness: Ms. Yung is a 47-year-old white female who ambulates into the ED accompanied by her complaining of left upper chest pain, left lateral chest pain and cough. Historically patient reports that she has had multiple episodes of bronchitis, pneumonia, and lung sarcoidosis. Patient reports first symptoms started approximately one week ago when she developed watery eyes, runny nose and sneezing. Approximately 2 days into her illness she started developing a nonproductive cough. The nonproductive cough became worse and now has been productive of yellowish sputum her chest discomfort has become worse and she reports that she is having diarrhea. Currently she complains of a sharp pain over the left superior aspect of the chest in the area of ribs 3 and 4 in the mid clavicular area and she is having pain over the left lateral inferior ribs. She describes her pain as a sharp sensation. She rates her discomfort 6/10. The pain is nonradiating. The pain worsens with cough, sneezing, deep inspiration and palpation. She has not identified any alleviating factors related to the pain. She reports she has been using ibuprofen without relief of her discomfort. Associated with her pain is her productive cough, her reports at night when she sleeping she is wheezing, questionable fevers; sensations of feeling cold, decreased appetite, 2 episodes of watery stool, palpitations with cough. She denies aleah fevers, sweats, skin eruptions, skin color changes, headache, dizziness, lightheadedness, sore throats, ear pain, voice changes, difficulty swallowing, neck pain/stiffness, hemoptysis, previous clots, claudication, cramping, recent surgery/inactivity/extended travel, abdominal pain, nausea, vomiting, diarrhea, constipation. Review of Systems: As noted above in history of present illness. All body systems were reviewed and found to be negative as noted above. Past Medical History: As previously noted, hypertension, gastric reflux and status post tonsillectomy, adenoidectomy. Current Medications: Lipitor, Voltaren, Benadryl, losartan, albuterol, baclofen , Cymbalta, hydrochlorothiazide, Zantac, Neurontin, Protonix and acetaminophen. Allergies to Medications: Penicillin. Social History: Patient is currently employed; she feels safe in her home environment; she admits to tobacco and alcohol use. Physical Examination: Vital Signs: Date Time Temp Pulse Resp B/P (MAP) Pulse Ox O2 Delivery O2 Flow Rate FiO2 05/03/17 19:37 77 131/86 92 Room Air 05/03/17 18:26 74 18 158/98 96 Room Air 05/03/17 17:13 36.4 83 16 166/89 99 Room Air GENERAL: 47-year-old female in mild distress due to pain, nontoxic-appearing, afebrile and hemodynamically stable. NEUROLOGICAL: Awake, alert and oriented to person, place and time. Answering questions appropriately and following commands. Normal gait. Good hand eye coordination. SKIN: Warm, dry and pink. No soft tissue eruptions or trauma noted. HEENT: Atraumatic and normocephalic. No erythema or tenderness over the frontal or maxillary sinuses. PERRLA. Sclera white and conjunctiva pink. No drainage from naris, but audible congestion. Oral cavity moist and pink. Uvula is midline and no abscesses are seen. Airway is patent. Pharynx is nonerythematous or edematous. Speech normal and clear. No lymphadenopathy. Trachea midline. No jugular venous distention. BACK: No tenderness over the bony spine. No CVA tenderness. THORAX: Lungs sounds are decreased bilaterally with scattered wheezing. Equal bilaterally with symmetrical chest wall. After albuterol/Atrovent breathing treatment her lungs are reassessed and now shows increased air movement in all brunson and resolution of wheezing. No rales or rhonchi. Moderate tenderness over ribs 2 and 3 in the mid clavicular area without bony deformity or crepitus and mild tenderness over the left lateral lower ribs without bony deformity, bony crepitus or subcutaneous air. HEART: Regular rate and rhythm. No gallops, rubs or murmurs are appreciated. PMI is not displaced. No lifts, heaves or thrills. ABDOMEN: Flat, soft and nontender. Positive bowel sounds in all quadrants. No guarding, rigidity or organomegaly. EXTREMITIES: Moves all extremities well on command and with purpose. All distal neurovascular statuses are intact and equal bilaterally. No calf tenderness or cords. ED Course: Patient is assessed as noted above. Patient's medication list was reviewed. Laboratory Testing: Test 05/03/17 17:50 05/03/17 18:00 05/03/17 18:04 Range/Units Urine Color YELLOW Urine Appearance CLEAR CLEAR Urine pH 6.5 4.5-7.5 Urine Specific [place] 1.009 1.000-1.030 Urine Protein NEG NEG Urine Glucose (UA) NEG NEG Urine Ketones NEG NEG Urine Occult Blood NEG NEG Urine Nitrite NEG NEG Urine Bilirubin NEG NEG Urine Urobilinogen NEG NEG Urine Leukocyte Esterase NEG NEG White Blood Count 12.83 4.8-10.8 K/uL Red Blood Count 4.74 4.2-5.4 M/uL Hemoglobin 14.7 12.0-16.0 g/dL Hematocrit 42.4 37-47 % Mean Corpuscular Volume 89.5 80-100 fL Mean Corpuscular Hemoglobin 31.0 25-34 pg Mean Corpuscular Hemoglobin Concent 34.7 32-36 g/dl Platelet Count 466 130-400 K/uL Mean Platelet Volume 9.0 7.4-10.4 fL Neutrophils (%) (Auto) 62.6 % Lymphocytes (%) (Auto) 29.4 % Monocytes (%) (Auto) 4.8 % Eosinophils (%) (Auto) 2.3 % Basophils (%) (Auto) 0.4 % Neutrophils # (Auto) 8.05 1.4-6.5 K/uL Lymphocytes # (Auto) 3.77 1.2-3.4 K/uL Monocytes # (Auto) 0.61 0.11-0.59 K/uL Eosinophils # (Auto) 0.29 0-0.5 K/uL Basophils # (Auto) 0.05 0-0.2 K/uL RDW Standard Deviation 42.1 36.4-46.3 fL RDW Coefficient of Variation 12.8 11.5-14.5 % Immature Granulocyte % (Auto) 0.5 % Immature Granulocyte # (Auto) 0.06 0.00-0.02 K/uL Prothrombin Time 9.5 9.0-12.0 SECONDS Prothromb Time International Ratio 0.9 0.9-1.1 Activated Partial Thromboplast Time 25.5 21.0-31.0 SECONDS Partial Thromboplastin Ratio 1.0 Sodium Level 136 136-145 mmol/L Potassium Level 3.7 3.5-5.1 mmol/L Chloride Level 103 98-107 mmol/L Carbon Dioxide Level 28 21-32 mmol/L Anion Gap 5.0 3-11 mmol/L Blood Urea Nitrogen 8 7-18 mg/dl Creatinine 0.69 0.60-1.20 mg/dl Est Creatinine Clear Calc Drug Dose 107.3 ml/min Estimated GFR () 119.3 Estimated GFR (Non- 102.9 BUN/Creatinine Ratio 11.4 10-20 Random Glucose 82 70-99 mg/dl Calcium Level 9.4 8.5-10.1 mg/dl Total Bilirubin 0.2 0.2-1 mg/dl Direct Bilirubin < 0.1 0-0.2 mg/dl Aspartate Amino Transf (AST/SGOT) 17 15-37 U/L Alanine Aminotransferase (ALT/SGPT) 34 12-78 U/L Alkaline Phosphatase 107 45-117 U/L Total Protein 7.4 6.4-8.2 gm/dl Albumin 3.2 3.4-5.0 gm/dl Lipase 108 73-393 U/L Bedside D-Dimer > 450 0-450 ng/mlFEU Bedside Troponin I < 0.030 0-0.045 ng/ml EKG: Was read by myself and reviewed with ; shows normal sinus rhythm with a ventricular rate of 80 bpm. Left atrial enlargement was noted. Chest X-Ray: Were read by myself and the radiologist showing no acute infiltrates, effusions or pneumothorax. Normal heart silhouette. Radiologist notes mild interstitial thickening which was felt to be chronic. Chest CTA: Was reviewed by myself and read by the radiologist and shows shows no evidence of pulmonary emboli, no airspace consolidation or pleural effusion, diffuse peribronchial thickening suggestive of reactive airway disease and mildly a large mediastinal lymph nodes that was seen on a previous study and is stable. Patient was hydrated with normal saline and received an albuterol/Atrovent nebulizer breathing treatment, 30 mg of Toradol IV and 4 mg of Zofran IV. When her d-dimer returned elevated it was felt she needed to have a CTA and because of her allergic reaction IV contrast patient was given 125 mg of Solu- Medrol IV, 50 mg of Benadryl IV and 20 mg of Pepcid IV. Patient was reassessed multiple times during her stay in the emergency department. Patient's case was reviewed with Dr. Knutson; we agreed on diagnostic approach, treatment, disposition and plan. Patient was given 500 mg of Zithromax for antibiotic coverage. Patient was educated about today's findings and instructed on her treatment plan ; she verbalized understanding and agreement with this plan. Clinical Impression: Acute bronchitis. Decision-Making: Initially my differential diagnosis I considered bronchitis, pneumonia, pulmonary embolism, myocardial infarction, costochondritis and other causes. Disposition: Patient discharged home accompanied by her ; prior to departure she was reassessed and subjectively reported she was feeling much better. Plan: Patient was encouraged to alternate ibuprofen and acetaminophen every 3 hours for pain. Patient was prescribed Zithromax 250 mg once a day for 4 additional days per Patient was prescribed prednisone 60 mg once a day for next 5 days per Patient was encouraged use 2 puffs of her albuterol inhaler with spacer every 6 hours for the next 5 days and as needed for severe coughing episodes, shortness of breath/wheezing. Patient was encouraged to stop tobacco use. Patient was encouraged to follow-up with her PCP for recheck in 3-4 days. Patient was encouraged return ED for worsening coughing, worsening wheezing/ shortness of breath, worsening pain, fevers, coughing up blood or any new/ concerning symptoms.
== END 2017-05-03 21:17 | disposition home or self-care (01) ==
LOC: C.EDB 17:10 → C.EDC 21:17
DX: J20.9 Acute bronchitis, unspecified (principal); R07.9 Chest pain, unspecified; I10 Essential (primary) hypertension; K21.9 Gastro-esophageal reflux disease without esophagitis; Z79.899 Other long term (current) drug therapy; Z87.01 Personal history of pneumonia (recurrent); Z87.09 Personal history of other diseases of the respiratory system; F17.200 Nicotine dependence, unspecified, uncomplicated

== ENCOUNTER 2017-05-10 16:22 | Emergency (ER) | payer OTHER ==
[~2017-05-10] VITALS: Ht 154.9 cm; Wt 90.6 kg
[~2017-05-10 16:22] MED LIST changes: +ACET-1256 PO; +PANT40TA PO; -PRAM0.256 PO; +PRAM0.259 PO; +RANI150T85 PO; -ZNTT/150 PO
[2017-05-10 16:31] VITALS: BP 156/87; PULSE 90; TEMP 36.7; O2SAT 97; Ht 154.9 cm; Wt 90.6 kg
--- NOTE | 2017-05-10 17:14 | DIAGNOSTIC IMAGING REPORT ---
R FOOT MIN 3 VIEWS ROUTINE CLINICAL HISTORY: 47 years-old Female presenting with R FOOT PAIN. TECHNIQUE: Frontal, oblique, and lateral views the right foot were obtained. COMPARISON: 09/06/2016. FINDINGS: No acute fracture or malalignment. Accessory navicular noted. Os peroneum may also be present. Mild soft tissue swelling suggested at the medial aspect of the interphalangeal joint of the first toe. Diffuse soft tissue swelling. IMPRESSION: No acute osseous injury. Electronically signed by: Erlin Zheng M.D. 05/10/2017 5:12 PM Dictated Date/Time: 05/10/2017 5:11 PM
--- NOTE | 2017-05-10 18:29 | EMERGENCY ROOM VISIT NOTE ---
History First contact with patient: 16:35 Chief Complaint: TOE PAIN, INJURY Stated Complaint: SWOLLEN RT FOOT AND BIG TOE History of Present Illness The patient is a 47 year old female who presents to the Emergency Room with complaints of pain in her right foot, primarily at the base of the big toe. The patient reports that she tripped over a coffee table last night, and hit her toe. She reports chronic pain and weakness of the right lower extremity secondary to a herniated lumbar disc. She is scheduled for surgery in the immediate future with Dr. Ambrosio. She denies any other injuries, and rates her discomfort a 9 out of 10. Review of Systems 10 system review was performed and was negative except for pertinent positives and negatives as indicated in history of present illness Past Medical/Surgical History Medical Problems: (1) Pneumonia of both lower lobes (2) Sarcoidosis of lung Family History No pertinent family history Social History Smoking Status: Current Every Day Smoker Alcohol Use: occasionally Drug Use: none Marital Status: single Housing Status: lives with family Occupation Status: employed Current/Historical Medications Scheduled Atorvastatin (Lipitor), 20 MG PO QAM Diclofenac (Voltaren), 75 MG PO BID Duloxetine Hcl (Cymbalta), 60 MG PO QAM Gabapentin (Neurontin), 1,200 MG PO TID Hydrochlorothiazide (Hydrochlorothiazide), 12.5 MG PO QAM Losartan Potassium (Losartan Potassium), 50 MG PO QAM Montelukast Sodium (Montelukast Sodium), 10 MG PO QAM Pantoprazole (Protonix), 40 MG PO QAM Pramipexole Dihydrochloride (Pramipexole Dihydrochlori), 0.25 MG PO HS Ranitidine (Zantac), 150 MG PO BID Scheduled PRN Acetaminophen (Tylenol), 1,000 MG PO DIRECTED PRN for Pain or Fever Albuterol (Ventolin Hfa), 2 PUFFS INH Q4H PRN for Cough Albuterol Sulf (Proventil 0.083% 2.5MG/3ML), 2.5 MG NEB Q4-6HRS PRN for SOB/ Wheezing Baclofen (Lioresal), 10 MG PO Q8 PRN for HERRERA/Pain/Stiffness Diphenhydramine Hcl (Benadryl Allergy), 50 MG PO Q4H PRN for ALLERGIC REACTION Physical Exam Vital Signs Date Time Temp Pulse Resp B/P (MAP) Pulse Ox O2 Delivery O2 Flow Rate FiO2 05/10/17 16:31 36.7 90 18 156/87 97 Room Air Physical Exam CONSTITUTIONAL: Healthy and well nourished. Alert and oriented X 3 with positive affect. Patient does not appear in any acute distress on exam. HEENT: Normocephalic, atraumatic. Pupils equal, round and reactive. NECK: Full active range of motion without discomfort. MUSCULOSKELETAL: Examination shows edema and ecchymosis at the base of the first through third toes. She has notable ecchymosis at the base of the great toe with associated tenderness to palpation. No focal tenderness over the midfoot. Capillary refill of the toes is less than 2 seconds. INTEGUMENTARY: No rash or other significant dermatologic conditions noted. NEUROLOGIC: Right foot and toes are sensory intact. Medical Decision & Procedures ER Provider Diagnostic Interpretation: My interpretation of right foot x-rays does not show any obvious fractures or dislocations. Radiologist report is as follows: R FOOT MIN 3 VIEWS ROUTINE CLINICAL HISTORY: 47 years-old Female presenting with R FOOT PAIN. TECHNIQUE: Frontal, oblique, and lateral views the right foot were obtained. COMPARISON: 09/06/2016. FINDINGS: No acute fracture or malalignment. Accessory navicular noted. Os peroneum may also be present. Mild soft tissue swelling suggested at the medial aspect of the interphalangeal joint of the first toe. Diffuse soft tissue swelling. IMPRESSION: No acute osseous injury. ED Course Patient history and physical exam were performed. Nurse's notes were reviewed. Vital signs were reviewed, showing an elevated blood pressure of 156/87. The patient does not appear in any acute distress on my exam. X-rays of the right foot were normal. The patient was encouraged to intermittently apply ice and elevate the foot for swelling. Ibuprofen or Tylenol if needed for additional pain relief. The patient was encouraged to limit weightbearing until symptoms improve. She may also marshall tape her first and second toes for additional support. She was instructed to follow-up with [facility] as needed for any persistent pain. The patient voiced understanding of all discharge instructions, was happy with plan of care, refused any analgesics while in the emergency department, and rated her discomfort a 6 out of 10 at the conclusion of my exam. Medical Decision Medication Reconcilliation Current Medication List: was personally reviewed by me Blood Pressure Screening Patient's blood pressure: Normal blood pressure Impression Primary Impression: Contusion of right foot including toes Departure Information Referrals Sharla Zimmer MD (PCP) Patient Instructions My [facility] Problem Qualifiers Primary Impression: Contusion of right foot including toes Encounter type: initial encounter Qualified Codes: S90.31XA - Contusion of right foot, initial encounter; S90.121A - Contusion of right lesser toe(s) without damage to nail, initial encounter
[2017-06-07] MEDS ORDERED: PROC10TA PO (15:40)
[2017-07-26] MEDS ORDERED: PRD/1 PO (12:19)
[2017-07-26] MEDS ORDERED: CHN/1 PO (12:19)
[2017-07-26] MEDS ORDERED: TRAM-10 PO (12:19)
[2017-09-26] MEDS ORDERED: RXC5 PO (10:06)
== END 2017-05-10 17:44 | disposition home or self-care (01) ==
LOC: C.EDB 16:23 → C.EDD 17:44
DX: S90.31XA Contusion of right foot, initial encounter (principal); S90.121A Contusion of right lesser toe(s) without damage to nail, initial encounter; W22.8XXA Striking against or struck by other objects, initial encounter; D86.0 Sarcoidosis of lung; F17.200 Nicotine dependence, unspecified, uncomplicated; Z87.01 Personal history of pneumonia (recurrent)

== ENCOUNTER 2017-06-07 14:56 | Emergency (ER) | payer OTHER ==
[~2017-06-07] VITALS: Ht 154.9 cm; Wt 100.4 kg
[~2017-06-07 14:56] MED LIST changes: +PRAM0.256 PO; -PRAM0.259 PO; -RANI150T85 PO; +ZNTT/150 PO
[2017-06-07 15:13] VITALS: TEMP 36.9; Ht 154.9 cm; Wt 100.4 kg
[2017-06-07] MEDS ORDERED: KETOROLAC TROMETHAMINE 60 MG/2 ML VIAL IM STA (15:32)
[2017-06-07] MEDS ORDERED: PROC1TAB5 PO (15:40)
--- NOTE | 2017-06-07 16:35 | DIAGNOSTIC IMAGING REPORT ---
THORACIC SPINE 3 VIEWS HISTORY: mid back pain COMPARISON: None. FINDINGS: There is no fracture. No subluxation. Mild disc space narrowing and small endplate osteophytes at the thoracic spine. 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 Paraspinal soft tissues appear unremarkable. IMPRESSION: No fracture or subluxation within the thoracic spine. Mild degenerative disc disease within the thoracic spine. Electronically signed by: Ranjit Churchill M.D. 06/07/2017 4:33 PM Dictated Date/Time: 06/07/2017 4:32 PM
[2017-06-07] MEDS ORDERED: DICL1GEL12 TOP (17:09)
--- NOTE | 2017-06-07 17:11 | EMERGENCY ROOM VISIT NOTE ---
ED Visit Note First contact with patient: 15:23 CHIEF COMPLAINT: Mid back pain HISTORY OF PRESENT ILLNESS: This 47 year old female patient presents to the emergency department ambulatory complaining of pain in the mid back which began approximately 3 days ago. 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 She states this weekend, they had a bad, busy weekend, and she had many dishes to wash and heavy bins to Sandy. She states on Monday afternoon, she coughed once, and at that point, noticed a crushing, pulling sensation in the middle of the back. She states she is having difficulty twisting around, and has been taking gabapentin and baclofen without any relief. The pain was gradual in onset, is now constant and worse with movement. The patient notes the pain as sharp and a 10/10. The patient has not had relief of the pain. Deep breathing does cause increased pain, as well as increased pain with belly laughing. The pain is worse first thing in the morning while getting out of bed. The patient denies any loss of control of their bowel or bladder functions. There has been no leg numbness or weakness, and no change in sensation. No nausea or vomiting or abdominal pain. No chest pain or shortness of breath. The patient has had prior back injuries. No dysuria or increased urinary frequency. REVIEW OF SYSTEMS: A 10 system review of systems was performed with positives and pertinent negatives listed in the history of present illness. All other systems were reviewed and are negative. ALLERGIES: ASA, PCN, Iodine PMH: Chronic back pain SOCIAL HISTORY: The patient lives locally with family. She denies drug, alcohol use. She does admit to smoking 1 pack cigarettes per day. PHYSICAL EXAM: VITALS: Vitals are noted on the nurse's note and reviewed by myself. Vital signs stable. GENERAL: This is a 47 year old female, in no acute distress, nondiaphoretic, well-developed well-nourished. SKIN: The skin was without rashes, erythema, edema, or bruising. Capillary refill less than 2 seconds. NECK: Supple without nuchal rigidity. No cervical spine tenderness. No paraspinous muscle tenderness. HEART: Regular rate and rhythm without murmurs gallops or rubs. LUNGS: Clear to auscultation bilaterally without wheezes, rales or rhonchi. ABDOMEN: Positive bowel sounds x 4. Normal tympanic percussion. Soft, nontender, without masses or organomegaly. Ortiz sign negative. MUSCULOSKELETAL: No muscle atrophy, erythema, or edema noted of the back. There is no tenderness over the lumbar spinous processes. There is no tenderness over the paraspinous muscles bilaterally. There is tenderness over the thoracic spine and paraspinous muscles. There are muscle spasms present. The patient is slow to move around with maximum tenderness with position changes. NEURO: Patient was alert and oriented to person place and time. Normal sensation to light and sharp touch. Deep tendon reflexes 2+ in the lower extremities. Dorsalis pedis pulse 2+ bilaterally. Strength 5/5 and equal in the bilateral lower extremities. RADIOLOGY: FINDINGS: There is no fracture. No subluxation. Mild disc space narrowing and small endplate osteophytes at the thoracic spine. 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 Paraspinal soft tissues appear unremarkable. IMPRESSION: No fracture or subluxation within the thoracic spine. Mild degenerative disc disease within the thoracic spine. EMERGENCY DEPARTMENT COURSE: The patient was seen and evaluated as above. At her request, she was given Toradol IM, as she has received this in the past for back pain and it has worked well. Thoracic spine x-rays were performed and reviewed by myself and radiologist with findings noted above. I discussed proper outpatient management with the patient at bedside, and discouraged the use of narcotics, as this appears to be an overuse, strain-like injury. The patient was in agreement with this plan, and she does see orthopedic surgery and her primary care provider for pain management. Her sugar to keep doing what she is doing [id number], and use topical anti-inflammatory medication as needed. Discharge instructions reviewed, and the patient was discharged home in good condition. Unfortunately, the pharmacy contacted the emergency Department regarding the patient's medications, as they were not covered on her current insurance. Please see Singh pharmacist dictation. I did attempt to contact willian regarding a prior authorization, and was unsuccessful. The patient was given 1 days worth of tramadol to help with her pain overnight, and encouraged to follow up outpatient with her primary care provider. I did contact the pharmacist, and requested they provide proper patient education and pass on the message for the patient to follow up outpatient. I attest that I have personally reviewed the patient's current medication list. Blood Pressure Screening: Patient was found to have a slightly elevated blood pressure due to circumstances. I do not believe that the patient requires hypertension monitoring. Etiologies such as lumbago, strain, sciatica, cauda equina, epidural abscess, osteomyelitis, fracture, aortic disease, metastatic disease, infection, renal colic, gastrointestinal, as well as others were entertained. DIAGNOSIS: Thoracic strain Current/Historical Medications Scheduled Atorvastatin (Lipitor), 20 MG PO QAM Diclofenac Sodium (Topical) (Voltaren 1% Top Gel), 1 APPLN TOP QID Duloxetine Hcl (Cymbalta), 60 MG PO QAM Gabapentin (Neurontin), 1,200 MG PO TID Hydrochlorothiazide (Hydrochlorothiazide), 12.5 MG PO QAM Losartan Potassium (Losartan Potassium), 50 MG PO QAM Montelukast Sodium (Montelukast Sodium), 10 MG PO QAM Pantoprazole (Protonix), 40 MG PO QAM Pramipexole Dihydrochloride (Pramipexole Dihydrochlori), 0.25 MG PO HS Ranitidine (Zantac), 150 MG PO BID Scheduled PRN Acetaminophen (Tylenol), 1,000 MG PO DIRECTED PRN for Pain or Fever Albuterol (Ventolin Hfa), 2 PUFFS INH Q4H PRN for Cough Albuterol Sulf (Proventil 0.083% 2.5MG/3ML), 2.5 MG NEB Q4-6HRS PRN for SOB/ Wheezing Baclofen (Lioresal), 10 MG PO Q8 PRN for HERRERA/Pain/Stiffness Diphenhydramine Hcl (Benadryl Allergy), 50 MG PO Q4H PRN for ALLERGIC REACTION Prochlorperazine Maleate (Compazine), 10 MG PO Q6H PRN for Nausea Tramadol (Ultram), 1 TAB PO TID PRN for Pain Allergies Coded Allergies: [place] (Verified Allergy, Severe, TIGHTNESS OF THROAT,WATERY EYES, ) Penicillins (Verified Allergy, Severe, HIVES, 05/03/17) Iodinated Diagnostic Agents (Verified Allergy, Mild, HIVES, 05/03/17) Aspirin (Verified Allergy, Unknown, TOLD NOT TAKE D/T ACID REFLUX, ) Uncoded Allergies: [place]DE[place] (Allergy, Severe, BACTERIAL PNEUMONIA, 03/20/16) MOLD (Allergy, Severe, BACTERIAL PNEUMONIA, 03/20/16) Vital Signs Date Time Temp Pulse Resp B/P (MAP) Pulse Ox O2 Delivery O2 Flow Rate FiO2 06/07/17 17:22 65 16 186/119 98 06/07/17 15:13 36.9 82 18 180/101 97 Room Air Medications Administered Medications (Trade) Dose Ordered Sig/Gabe Route Start Time Stop Time Status Last Admin Dose Admin Ketorolac Tromethamine (Toradol Inj) 60 mg NOW STAT IM 06/07/17 15:32 06/07/17 15:34 DC 06/07/17 16:03 60 MG Departure Information Impression Primary Impression: Strain of thoracic region Dispostion Home / Self-Care Condition GOOD Prescriptions Tramadol (Ultram) 50 Mg Tab 1 TAB PO TID Y for Pain, #3 TAB Prov: Macarena Jang PA-C 06/07/17 Diclofenac Sodium (Topical) (VOLTAREN 1% TOP GEL) 1 % Gel 1 APPLN TOP QID, #1 TUBE Prov: Macarena Jang PA-C 06/07/17 Referrals Sharla Zimmer MD (PCP) Patient Instructions ED Neck Back Pain General, [facility] Additional Instructions You have been treated in the Emergency Department for Back Pain. Take your normal pain medication as prescribed. For pain control, you can use the following etxy-nqw-rhoqpmr medicines (if >12 yo): Ibuprofen(Motrin, Advil) may be used for fever or pain. Use 600mg every six hours as needed. Take with food. Avoid using more than 2400mg in a 24 hour period. Do not use 2400mg per day for more than three consecutive days without physician direction. Prolonged inappropriate use can lead to stomach upset or ulcers. (AND/OR) Acetaminophen(Tylenol) may be used for fever or pain. Use 1000mg every six hours as needed. Avoid using more than 3000mg in a 24 hour period. If this is an acute injury, ice can be applied to the area of pain for the first 3 days to help decrease pain and inflammation. After the first 3 days, a heating pad can be used over the area for continued soothing relief. You should schedule a follow-up appointment in 2-3 days with your Primary Care Provider for further evaluation and treatment of your back pain. Return to the Emergency Department if your current symptoms worsen despite treatment course outlined above, or if you develop any of the following symptoms : intractable pain despite aforementioned treatment course, loss of control of your bowel or bladder, numbness or tingling in your groin, or development of a fever. Work Instructions Return To Work: 2 days Problem Qualifiers Primary Impression: Strain of thoracic region Encounter type: initial encounter Qualified Codes: S29.019A - Strain of muscle and tendon of unspecified wall of thorax, initial encounter
[2017-06-07 17:22] VITALS: BP 186/119; PULSE 65; O2SAT 98
--- NOTE | 2017-06-07 17:45 | Pharmacy Progress Note ---
ED Pharmacist Progress Note Date of Service: Jun 07, 2017. [facility] on [facility] called stating the Voltaren Gel that was ordered is not covered by the patient's insurance ([employer]). Reviewed w/ Macarena and obtained new Rx for Lidoderm patches apply 1 patch over location of pain, remove after 12 hours of wear, # 14, no refills Unfortunately when the [facility] ran the Lidoderm patch Rx this was also not covered. I advised Macarena of the Rx claim rejection and need for prior auth from [employer] ( ph )
[2017-06-07] MEDS ORDERED: TRAM-10 PO (17:47)
== END 2017-06-07 17:25 | disposition home or self-care (01) ==
LOC: C.EDB 14:58 → C.EDD 17:25
DX: S29.019A Strain of muscle and tendon of unspecified wall of thorax, initial encounter (principal); X58.XXXA Exposure to other specified factors, initial encounter; F17.200 Nicotine dependence, unspecified, uncomplicated

== ENCOUNTER 2017-08-22 17:08 | Emergency (ER) | payer OTHER ==
[~2017-08-22] VITALS: Ht 154.9 cm; Wt 100.3 kg
[~2017-08-22 17:08] MED LIST changes: +CHN/1 PO; -DICL-201 PO; -PRAM0.256 PO; +PRAM0.259 PO; +PRD/1 PO; +PROC1TAB5 PO; +RANI150T85 PO; +TRAM-10 PO; -ZNTT/150 PO
[2017-08-22 17:23] VITALS: TEMP 36.9; Ht 154.9 cm; Wt 100.3 kg
[2017-08-22] MEDS ORDERED: METHYLPREDNISOLONE 125 MG VIAL IV STA (18:11)
[2017-08-22] MEDS ORDERED: SODIUM CHLORIDE 0.9% 1000ML 1,000 ML IV STA (18:11)
[2017-08-22] MEDS ORDERED: ONDANSETRON INJ 2 MG/ML 2 ML VIAL IV STA (18:11)
[2017-08-22] MEDS ORDERED: ALBUT/IPRATROP 3MG/0.5MG NEB 3 ML VIAL INH STA (18:11)
[2017-08-22] MEDS ORDERED: BENZONATATE 100MG CAP PO ONE ×2 (18:15→20:45)
[2017-08-22] MEDS ORDERED: ACETAMINOPHEN IV 100 ML IV ONE (18:15)
[2017-08-22 19:07] LABS: BASO % 0.5 %; BASO ABS # 0.05 K/uL (0-0.2); EOS % 0.9 %; EOS ABS # 0.09 K/uL (0-0.5); HEMATOCRIT 40.8 % (37-47); IG# 0.13 K/uL (0.00-0.02); LYMPH % 37.5 %; LYMPH ABS # 3.76 K/uL (1.2-3.4); MEAN CELL VOLUME 87.6 fL (80-100); MEAN CORPUSCULAR HGB CONC 34.3 g/dl (32-36); MEAN PLATELET VOLUME 9.4 fL (7.4-10.4); MONO % 7.7 %; MONO ABS # 0.77 K/uL (0.11-0.59); NEUT % 52.1 %; NEUT ABS # 5.24 K/uL (1.4-6.5); PLATELET COUNT 420 K/uL (130-400); RED CELL DISTRIBUTION WIDTH CV 13.9 % (11.5-14.5); RED CELL DISTRIBUTION WIDTH SD 44.3 fL (36.4-46.3); WHITE BLOOD COUNT 10.04 K/uL (4.8-10.8)
[2017-08-22 19:25] LABS: ALBUMIN 3.1 gm/dl (3.4-5.0); CREATININE 0.71 mg/dl (0.60-1.20); POTASSIUM 3.4 mmol/L (3.5-5.1)
[2017-08-22 19:28] LABS: TOTAL PROTEIN 7.4 gm/dl (6.4-8.2)
--- NOTE | 2017-08-22 20:03 | DIAGNOSTIC IMAGING REPORT ---
CHEST 2 VIEWS ROUTINE CLINICAL HISTORY: Fever, cough, difficulty breathing, vomiting. COMPARISON STUDY: 05/03/2017 FINDINGS: The heart is normal in size. There is no focal pulmonary consolidation. There is persistent interstitial thickening. There is no lobar consolidation. There are no pleural effusions.[ IMPRESSION: Diffuse interstitial thickening similar to the preceding study. No evidence of lobar consolidation Electronically signed by: Andrés Winkler M.D. 08/22/2017 8:02 PM Dictated Date/Time: 08/22/2017 8:01 PM
[2017-08-22] MEDS ORDERED: BENZ100C18 PO (20:45)
[2017-08-22] MEDS ORDERED: AZITHROMYCIN 250 MG TAB PO ONE (20:45)
[2017-08-22] MEDS ORDERED: PRED20TA2 PO (20:45)
[2017-08-22] MEDS ORDERED: AZIT250T PO (20:45)
[2017-08-22 21:30] VITALS: BP 136/74; PULSE 92; O2SAT 98
--- NOTE | 2017-08-23 00:57 | EMERGENCY ROOM VISIT NOTE ---
ED Visit Note First contact with patient: 17:28 Chief Complaint: History of Present Illness: Ms. Yung is a 47-year-old white female who ambulates into the ED accompanied by her complaining of cough, difficulty breathing, fever, vomiting and diarrhea. Historically patient has a history of bronchitis, pneumonia and sarcoidosis of the lung. Patient reports on August 08 she was seen at her primary care provider's office and diagnosed with sinusitis. She was placed on a 10 day course of Bactrim and has had resolution of sinus discomfort. She does report she has continuation of a cough and chest congestion since finishing her antibiotics. She reports she has been taken Benadryl and Coricidin cough suppressants without relief of the symptoms. Associated with the symptoms she also reports she has having a sharp/achy chest pain about the upper sternum and above the left breast. She rates the discomfort and 6/10. Her pain is nonradiating. Her pain worsens with cough and palpation. She has not identified any alleviating factors related to the pain. Associated with her pain she continues to have the symptoms noted above and she reports she is having intermittent fevers, exertional dyspnea and fatigue. Additionally she reports since finishing her Bactrim she reports over the last 24 hours she has been nauseated and she had 2-3 episodes of loose watery brown colored stools. She denies skin eruptions, skin color changes, dizziness, lightheadedness, ear pain, hemoptysis, difficulty swallowing, voice changes, palpitations, orthopnea , previous clots, claudication, recent surgery/inactivity/extended travel, abdominal pain, nausea, vomiting, posttussive vomiting, rectal bleeding, black/ tarry stools, urinary symptoms, back pain. Review of Systems: As noted above in history of present illness. All body systems were reviewed and found to be negative as noted above. Past Medical History: As noted above and GERD, hyperlipidemia, hypertension, migraine headaches, spinal stenosis, herniated disc, restless leg syndrome, depression/anxiety and status post tonsillectomy, adenoidectomy, and tympanostomy.. Current Medications: Medications Dose Route/Sig Max Daily Dose Days Date Category Dose Instructions Chantix (Varenicline) Unknown Strength Tab Unknown Dose PO DIRECTED 07/26/17 Reported Prednisone Unknown Strength Tab Unknown Dose PO UD 07/26/17 Reported PT REPORTS IS ON A TAPER DOSE OF THIS CURRENTLY Ultram (Tramadol HCl) 50 Mg Tab 1 Tab PO UD PRN 07/26/17 Reported Compazine (Prochlorperazine Maleate) 10 Mg Tab 10 Mg PO Q6H PRN 06/07/17 Reported Protonix (Pantoprazole) 40 Mg Tab 40 Mg PO QAM 05/03/17 Reported TAKE 30 MIN. PRIOR TO BREAKFAST. Tylenol (Acetaminophen) 500 Mg Tab 1,000 Mg PO DIRECTED PRN 05/03/17 Reported Neurontin (Gabapentin) 600 Mg Tab 1,200 Mg PO TID 03/01/17 Reported Zantac (Ranitidine HCl) 150 Mg Tab 150 Mg PO BID 02/10/17 Reported Hydrochlorothiazide 12.5 Mg Tab 12.5 Mg PO QAM 01/24/17 Reported Pramipexole Dihydrochlori (Pramipexole Dihydrochloride) 0.25 Mg Tab 0.25 Mg PO HS PRN 01/24/17 Reported TAKE THIS MEDICATION ONE HOUR BEFORE BED Cymbalta (Duloxetine Hcl) 60 Mg Cap 60 Mg PO QAM 01/24/17 Reported Montelukast Sodium 10 Mg Tab 10 Mg PO QAM 01/24/17 Reported Lioresal (Baclofen) 10 Mg Tab 10 Mg PO Q8 PRN 11/18/16 Reported Proventil 0.083% 2.5MG/3ML (Albuterol Sulf) 2.5 Mg/3 Ml Nebu 2.5 Mg NEB Q4-6HRS PRN 11/18/16 Reported Ventolin Hfa (Albuterol) 60 Puffs/5400 Mcg Aers 2 Puffs INH Q4H PRN 11/18/16 Reported Losartan Potassium 50 Mg Tab 50 Mg PO QAM 07/12/16 Reported Benadryl Allergy (Diphenhydramine Hcl) 25 Mg Tab 50 Mg PO Q4H PRN 03/18/16 Reported Lipitor (Atorvastatin Calcium) 20 Mg Tab 20 Mg PO QAM 12/01/15 Reported Allergies to Medications: Aspirin, IV contrast, penicillin. Social History: Patient is currently employed; she feels safe in her home environment; she admits to tobacco and alcohol use. Physical Examination: Vital Signs: Date Time Temp Pulse Resp B/P (MAP) Pulse Ox O2 Delivery O2 Flow Rate FiO2 08/22/17 21:30 92 18 136/74 98 08/22/17 20:33 88 Room Air 08/22/17 20:03 78 22 127/77 89 Room Air 08/22/17 17:23 36.9 95 20 118/80 93 Room Air GENERAL: 47-year-old female in mild to moderate distress due to symptoms, nontoxic-appearing, afebrile and hemodynamically stable. NEUROLOGICAL: Awake, alert and oriented to person, place and time. Answering questions appropriately and following commands. Normal gait. Good hand eye coordination. No focal motor or sensory deficits. SKIN: Warm, dry and pink. No soft tissue eruptions or trauma noted. HEENT: Atraumatic and normocephalic. No erythema or tenderness over the frontal or maxillary sinuses. External ears are nontender. Auditory canals are pink and patent. Tympanic membranes were not erythematous or edematous. PERRLA. Sclera white and conjunctiva pink without drainage. No drainage from naris with audible congestion. Oral cavity moist and pink. Uvula is midline and no abscesses were seen. Pharynx is moderately erythematous and mild edematous without exudative material. Speech normal and clear. No lymphadenopathy. Trachea midline. No jugular venous distention. BACK: No tenderness over the bony cervical and thoracic spine. No nuchal rigidity or meningismus. Full range of motion of the cervical spine. No CVA tenderness. THORAX: Lungs sounds show diffuse inspiratory wheezing, and scattered rhonchi in all brunson. Equal bilaterally with symmetrical chest wall. Mild tenderness over the left anterior chest above her breast without bony deformity , bony crepitus, swelling or ecchymosis. HEART: Regular rate and rhythm. No gallops, rubs or murmurs are appreciated. PMI was not displaced. ABDOMEN: Obese, soft and nontender. Positive bowel sounds in all quadrants. No guarding, rigidity or organomegaly. EXTREMITIES: Moves all extremities well on command and with purpose. All distal neurovascular statuses are intact and equal bilaterally. Trace dependent edema. No calf tenderness or cords. ED Course: Patient is assessed as noted above. Patient's medication list was reviewed. Laboratory Testing: Test 08/22/17 18:38 08/22/17 20:10 Range/Units White Blood Count 10.04 4.8-10.8 K/uL Red Blood Count 4.66 4.2-5.4 M/uL Hemoglobin 14.0 12.0-16.0 g/dL Hematocrit 40.8 37-47 % Mean Corpuscular Volume 87.6 80-100 fL Mean Corpuscular Hemoglobin 30.0 25-34 pg Mean Corpuscular Hemoglobin Concent 34.3 32-36 g/dl Platelet Count 420 130-400 K/uL Mean Platelet Volume 9.4 7.4-10.4 fL Neutrophils (%) (Auto) 52.1 % Lymphocytes (%) (Auto) 37.5 % Monocytes (%) (Auto) 7.7 % Eosinophils (%) (Auto) 0.9 % Basophils (%) (Auto) 0.5 % Neutrophils # (Auto) 5.24 1.4-6.5 K/uL Lymphocytes # (Auto) 3.76 1.2-3.4 K/uL Monocytes # (Auto) 0.77 0.11-0.59 K/uL Eosinophils # (Auto) 0.09 0-0.5 K/uL Basophils # (Auto) 0.05 0-0.2 K/uL RDW Standard Deviation 44.3 36.4-46.3 fL RDW Coefficient of Variation 13.9 11.5-14.5 % Immature Granulocyte % (Auto) 1.3 % Immature Granulocyte # (Auto) 0.13 0.00-0.02 K/uL Sodium Level 136 136-145 mmol/L Potassium Level 3.4 3.5-5.1 mmol/L Chloride Level 102 98-107 mmol/L Carbon Dioxide Level 27 21-32 mmol/L Anion Gap 7.0 3-11 mmol/L Blood Urea Nitrogen 6 7-18 mg/dl Creatinine 0.71 0.60-1.20 mg/dl Est Creatinine Clear Calc Drug Dose 105.2 ml/min Estimated GFR () 116.7 Estimated GFR (Non- 100.7 BUN/Creatinine Ratio 7.7 10-20 Random Glucose 96 70-99 mg/dl Calcium Level 9.0 8.5-10.1 mg/dl Total Bilirubin 0.4 0.2-1 mg/dl Aspartate Amino Transf (AST/SGOT) 55 15-37 U/L Alanine Aminotransferase (ALT/SGPT) 62 12-78 U/L Alkaline Phosphatase 95 45-117 U/L Total Protein 7.4 6.4-8.2 gm/dl Albumin 3.1 3.4-5.0 gm/dl Globulin 4.3 2.5-4.0 gm/dl Albumin/Globulin Ratio 0.7 0.9-2 Human Chorionic Gonadotropin, Qual NEG NEG Urine Color DK YELLOW Urine Appearance CLOUDY CLEAR Urine pH 5.5 4.5-7.5 Urine Specific [place] 1.019 1.000-1.030 Urine Protein NEG NEG Urine Glucose (UA) NEG NEG Urine Ketones NEG NEG Urine Occult Blood NEG NEG Urine Nitrite NEG NEG Urine Bilirubin NEG NEG Urine Urobilinogen NEG NEG Urine Leukocyte Esterase NEG NEG Urine WBC (Auto) 5-10 0-5 /hpf Urine RBC (Auto) 0-4 0-4 /hpf Urine Hyaline Casts (Auto) 1-5 0-5 /lpf Urine Epithelial Cells (Auto) >30 0-5 /lpf Urine Bacteria (Auto) NEG NEG Group A Rapid Strep Screen: Negative. Culture pending. Chest X-Rays: Were read by myself and the radiologist showing no acute infiltrates, effusions or pneumothorax. Persistent interstitial thickening from previous x-rays of April 2017 were still present. EKG: Was read by myself and shows normal sinus rhythm with a ventricular rate of 81 bpm. Shortened MO interval. No acute ischemic changes or signs of infarction. No ectopy. Compared to previous from April 2017 and no changes were noted. Patient was hydrated with normal saline, she received an albuterol/Atrovent nebulizer breathing treatment, 125 mg of Solu-Medrol IV, 4 mg of Zofran IV, 200 mg of Tessalon Perles by mouth, 1 g of Tylenol IV and 500 mg of Zithromax by mouth. Patient was reassessed multiple times during her stay in the emergency department. Patient's case was reviewed with Dr. Wang; we agreed on diagnostic approach, treatment, disposition and plan. Patient was educated about today's findings and instructed on her treatment plan ; she verbalized understanding and agreement with this plan. Clinical Impression: Acute bronchitis. Decision-Making: Initially my differential diagnosis I considered bronchitis, pneumonia, pulmonary embolism, congestive heart failure, acute coronary syndrome , musculoskeletal disorder and other causes. Disposition: Patient discharged home in stable condition accompanied by her ; prior to departure she was reassessed and subjectively reported she was breathing easier and rated her chest discomfort 3/10. Plan: Patient was encouraged alternate ibuprofen and acetaminophen every 6 hours as needed for fevers or persistent pain. Patient was encouraged to use 2 puffs of her albuterol inhaler every 4 hours for 5 days and as needed for shortness of breath/wheezing or severe coughing episodes. Patient was prescribed Tessalon Perles 100 mg every 8 hours as needed for cough. Patient was prescribed 60 mg of prednisone once a day for the next 4 days. Patient was encouraged to stop tobacco use. Patient was encouraged to stay well-hydrated with increased clear fluids. Patient was encouraged to contact her PCP tomorrow and request follow-up care and treatment. Patient was encouraged return to the ED for worsening/uncontrolled fevers, worsening/uncontrolled shortness of breath/wheezing, cough, coughing up blood or any new/concerning symptoms.
== END 2017-08-22 21:31 | disposition home or self-care (01) ==
LOC: C.EDB 17:10 → C.EDC 21:31
DX: J20.9 Acute bronchitis, unspecified (principal); K21.9 Gastro-esophageal reflux disease without esophagitis; E78.5 Hyperlipidemia, unspecified; I10 Essential (primary) hypertension; F32.9 Major depressive disorder, single episode, unspecified; F41.9 Anxiety disorder, unspecified; G25.81 Restless legs syndrome; M48.00 Spinal stenosis, site unspecified; Z88.0 Allergy status to penicillin; Z88.8 Allergy status to other drugs, medicaments and biological substances; F17.200 Nicotine dependence, unspecified, uncomplicated

== ENCOUNTER → 2017-09-11 | Outpatient (CLI) | payer OTHER ==
[~2017-09-11] MED LIST changes: +PRED20TA2 PO
--- NOTE | 2017-09-11 08:42 | DIAGNOSTIC IMAGING REPORT ---
CERVICAL WITHOUT CONTRAST CLINICAL HISTORY: 47 years-old Female presenting with CERVICAL SPINE PAIN. TECHNIQUE: Multisequence, multiplanar MR imaging of the cervical spine was performed without the use of intravenous contrast. IV contrast: None. COMPARISON: 05/24/2016. FINDINGS: Localizer images: Unremarkable. Slight straightening of normal cervical lordosis likely due to multilevel degenerative changes. Vertebral bodies maintain normal height, alignment, and bone marrow signal intensity. Diffuse intervertebral disc desiccation with height loss greatest at C5-6. Disc osteophyte complexes noted from C3-4 through C6-7. Multilevel degenerative changes further detailed below: C2-3: No significant neural foraminal or spinal canal stenosis. C3-4: Disc osteophyte complex/uncovertebral hypertrophy results in mild right neural foraminal narrowing. Mild effacement of the ventral thecal sac. C4-5: Minimal disc osteophyte complex. No significant neural foraminal or spinal canal stenosis. C5-6: Disc osteophyte complex/uncovertebral hypertrophy results in moderate right and severe left neural foraminal narrowing. Disc osteophyte complex in combination with ligamentum flavum hypertrophy result in effacement of the ventral and dorsal thecal sac and minimal residual CSF signal intensity similar to prior exam. Mild flattening of the spinal cord with minimal focal increased signal intensity and thinning suggested. C6-7: Minimal disc osteophyte complex resulting in mild bilateral neural foraminal narrowing. No significant spinal canal stenosis. Spinal cord flattening and possible atrophy with myelomalacia as described above at C5-6. The remainder of the cervical spinal cord is normal in morphology and signal intensity. Craniocervical junction normal. Paraspinal musculature normal. Remaining visualized soft tissues within normal limits. IMPRESSION: 1. Multilevel degenerative change of the cervical spine similar to prior exam, most severe at C5-6 with significant spinal canal stenosis and possible myelomalacia. Multilevel neural foraminal narrowing similar to prior further detailed above. Electronically signed by: rElin Zheng M.D. 09/11/2017 8:41 AM Dictated Date/Time: 09/11/2017 8:34 AM
== END | disposition home or self-care (01) ==
LOC: C.MRI 07:51
PROVIDERS: ATTEND Physician Assistant Medical
DX: M48.02 Spinal stenosis, cervical region (principal); M47.812 Spondylosis without myelopathy or radiculopathy, cervical region

== ENCOUNTER 2017-09-25 05:49 | Inpatient (IN) | payer OTHER ==
[2017-07-26 12:22] VITALS: Ht 154.9 cm; Wt 100.6 kg
--- NOTE | 2017-07-26 13:08 | PAT Medication Instructions ---
Service Date Jul 26, 2017. Current Home Medication List Acetaminophen (Tylenol), 1,000 MG PO DIRECTED PRN for Pain or Fever Albuterol (Ventolin Hfa), 2 PUFFS INH Q4H PRN for Cough Albuterol Sulf (Proventil 0.083% 2.5MG/3ML), 2.5 MG NEB Q4-6HRS PRN for SOB/ Wheezing Atorvastatin (Lipitor), 20 MG PO QAM Baclofen (Lioresal), 10 MG PO Q8 PRN for HERRERA/Pain/Stiffness Diphenhydramine Hcl (Benadryl Allergy), 50 MG PO Q4H PRN for ALLERGIC REACTION Duloxetine Hcl (Cymbalta), 60 MG PO QAM Gabapentin (Neurontin), 1,200 MG PO TID Hydrochlorothiazide (Hydrochlorothiazide), 12.5 MG PO QAM Losartan Potassium (Losartan Potassium), 50 MG PO QAM Montelukast Sodium (Montelukast Sodium), 10 MG PO QAM Pantoprazole (Protonix), 40 MG PO QAM Pramipexole Dihydrochloride (Pramipexole Dihydrochlori), 0.25 MG PO HS PRN for RESTLESS LEG SYNDROME Prednisone (Prednisone), Unknown Dose PO UD Prochlorperazine Maleate (Compazine), 10 MG PO Q6H PRN for Nausea Ranitidine (Zantac), 150 MG PO BID Tramadol (Ultram), 1 TAB PO UD PRN for PRN Varenicline (Chantix), Unknown Dose PO DIRECTED Medication Instructions For Your Scheduled Surgery -Continue as directed: Prednisone (Prednisone), Unknown Dose PO UD - Hold the following medications 24 hours prior to surgery: Pramipexole Dihydrochloride (Pramipexole Dihydrochlori), 0.25 MG PO HS PRN for RESTLESS LEG SYNDROME - Hold the following medications the morning of surgery: Baclofen (Lioresal), 10 MG PO Q8 PRN for HERRERA/Pain/Stiffness Diphenhydramine Hcl (Benadryl Allergy), 50 MG PO Q4H PRN for ALLERGIC REACTION Hydrochlorothiazide (Hydrochlorothiazide), 12.5 MG PO QAM Losartan Potassium (Losartan Potassium), 50 MG PO QAM Varenicline (Chantix), Unknown Dose PO DIRECTED - Take the following medications the morning of surgery with a sip of water: Acetaminophen (Tylenol), 1,000 MG PO DIRECTED PRN for Pain or Fever (if needed, can be taken up to four hours before surgery) Albuterol (Ventolin Hfa), 2 PUFFS INH Q4H PRN for Cough (if needed, and bring it with you to the hospital) Albuterol Sulf (Proventil 0.083% 2.5MG/3ML), 2.5 MG NEB Q4-6HRS PRN for SOB/ Wheezing Atorvastatin (Lipitor), 20 MG PO QAM Duloxetine Hcl (Cymbalta), 60 MG PO QAM Gabapentin (Neurontin), 1,200 MG PO TID Montelukast Sodium (Montelukast Sodium), 10 MG PO QAM Pantoprazole (Protonix), 40 MG PO QAM Prochlorperazine Maleate (Compazine), 10 MG PO Q6H PRN for Nausea (if needed) Ranitidine (Zantac), 150 MG PO BID Tramadol (Ultram), 1 TAB PO UD PRN for PRN (if needed, can be taken up to four hours before surgery) - Take the following medications as scheduled the night before surgery: Acetaminophen (Tylenol), 1,000 MG PO DIRECTED PRN for Pain or Fever (if needed) Albuterol (Ventolin Hfa), 2 PUFFS INH Q4H PRN for Cough (if needed) Albuterol Sulf (Proventil 0.083% 2.5MG/3ML), 2.5 MG NEB Q4-6HRS PRN for SOB/ Wheezing (if needed) Atorvastatin (Lipitor), 20 MG PO QAM Baclofen (Lioresal), 10 MG PO Q8 PRN for HERRERA/Pain/Stiffness (if needed) Diphenhydramine Hcl (Benadryl Allergy), 50 MG PO Q4H PRN for ALLERGIC REACTION ( if needed) Gabapentin (Neurontin), 1,200 MG PO TID Prochlorperazine Maleate (Compazine), 10 MG PO Q6H PRN for Nausea (if needed) Ranitidine (Zantac), 150 MG PO BID Tramadol (Ultram), 1 TAB PO UD PRN for PRN (if needed) If you have any questions please call us at [phone] or [phone] or [phone]
[2017-07-26 14:36] LABS: HEMATOCRIT 43.2 % (37-47); HEMOGLOBIN 15.1 g/dL (12.0-16.0); MEAN CORPUSCULAR HEMOGLOBIN 30.8 pg (25-34); MEAN PLATELET VOLUME 9.4 fL (7.4-10.4); PLATELET COUNT 388 K/uL (130-400); RED CELL DISTRIBUTION WIDTH CV 13.7 % (11.5-14.5); RED CELL DISTRIBUTION WIDTH SD 44.4 fL (36.4-46.3); WHITE BLOOD COUNT 20.48 K/uL (4.8-10.8)
[2017-07-26 15:44] LABS: CALCIUM 9.2 mg/dl (8.5-10.1); CREATININE 0.92 mg/dl (0.60-1.20); POTASSIUM 3.4 mmol/L (3.5-5.1)
[2017-09-25] VITALS (18 sets, daily range): BP systolic 116–162; BP diastolic 63–95; PULSE 75–96; TEMP 36.5–36.9; O2SAT 94–98
[~2017-09-25] VITALS: Ht 154.9 cm; Wt 100.6 kg
[~2017-09-25 05:49] MED LIST changes: +CLINDAMYCIN 600 MG/54 ML D5W IV SCH; +LACTATED RINGER'S 1000ML 1,000 ML IV SCH; +PROC10TA PO; -PROC1TAB5 PO
[2017-09-25] MEDS ORDERED: CLINDAMYCIN 600 MG/54 ML D5W IV SCH (06:00)
[2017-09-25] MEDS ORDERED: LACTATED RINGER'S 1000ML 1,000 ML IV SCH (06:00)
[2017-09-25] MEDS ORDERED: FENTANYL CITRATE INJ 50 MCG/1 ML 2 ML VIAL ONE ×3 (06:37→08:01)
[2017-09-25] MEDS ORDERED: MIDAZOLAM HCL 1 MG/ML 2ML VIAL ONE (06:37)
[2017-09-25] MEDS ORDERED: BACITRACIN 50000 UNIT VIAL ONE (06:56)
--- NOTE | 2017-09-25 07:27 | History & Physical Bridge Note ---
H&P Re-Evaluation Bridge Note: I have examined the patient, reviewed the History & Physical and in the interval since the performance of the History & Physical I have noted the following changes of clinical significance: No changes noted
--- NOTE | 2017-09-25 07:28 | History and Physical ---
History & Physical Date September 25, 2017. Chief Complaint Neck and arm pain History of Present Illness The patient is a 47 year old female with complaints of Past Medical/Surgical History Medical Problems: (1) Pneumonia of both lower lobes (2) Sarcoidosis of lung Additional History Hepatic Disease: No Endocrine Disorder: No Kidney Disease: No Hypertension: Yes Heart Disease: No Bleeding Tendencies: No Infectious Diseases: No Allergies Coded Allergies: [place] (Verified Allergy, Severe, TIGHTNESS OF THROAT,WATERY EYES, 09/25/17 ) Penicillins (Verified Allergy, Severe, HIVES, 09/25/17) Aspirin (Verified Allergy, Unknown, TOLD NOT TAKE D/T ACID REFLUX, 09/25/17 ) Iodinated Diagnostic Agents (Verified Allergy, Unknown, HIVES, 09/25/17) PT REPORTS FAR SHE KNOWS SHE DOES OKAY WITH BETADINE ON HER SKIN Uncoded Allergies: [place] (Allergy, Severe, BACTERIAL PNEUMONIA, 03/20/16) MOLD (Allergy, Severe, BACTERIAL PNEUMONIA, 03/20/16) Home Medications Scheduled Atorvastatin (Lipitor), 20 MG PO QAM Duloxetine Hcl (Cymbalta), 60 MG PO QAM Gabapentin (Neurontin), 1,200 MG PO TID Hydrochlorothiazide (Hydrochlorothiazide), 12.5 MG PO QAM Losartan Potassium (Losartan Potassium), 50 MG PO QAM Montelukast Sodium (Montelukast Sodium), 10 MG PO QAM Pantoprazole (Protonix), 40 MG PO QAM Ranitidine (Zantac), 150 MG PO BID Varenicline (Chantix), Unknown Dose PO DIRECTED Scheduled PRN Acetaminophen (Tylenol), 1,000 MG PO DIRECTED PRN for Pain or Fever Albuterol (Ventolin Hfa), 2 PUFFS INH Q4H PRN for Cough Albuterol Sulf (Proventil 0.083% 2.5MG/3ML), 2.5 MG NEB Q4-6HRS PRN for SOB/ Wheezing Baclofen (Lioresal), 10 MG PO Q8 PRN for HERRERA/Pain/Stiffness Diphenhydramine Hcl (Benadryl Allergy), 50 MG PO Q4H PRN for ALLERGIC REACTION Pramipexole Dihydrochloride (Pramipexole Dihydrochlori), 0.25 MG PO HS PRN for RESTLESS LEG SYNDROME Tramadol (Ultram), 1 TAB PO UD PRN for PRN Physical Examination Skin: warm/dry, no rash Eyes: normal inspection, EOMI, sclerae normal ENT: normal ENT inspection, pharynx normal Head: normocephalic, atraumatic Neck: supple, no adenopathy, trachea midline Respiratory/Chest: lungs clear, normal breath sounds, no respiratory distress Cardiovascular: regular rate, rhythm, no edema, no murmur Abdomen / GI: normal bowel sounds, non tender Back: normal inspection Extremities: normal inspection, normal range of motion Neurologic/Psych: no motor/sensory deficits, alert, normal reflexes, oriented x 3 Diagnosis Cervical spinal stenosis with myeloradiculopathy Plan of Treatment ACDF C5-6
[2017-09-25] MEDS ORDERED: NALOXONE HCL 0.4 MG/1 ML VIAL/CARP IV PRN ×2 (07:30→08:45)
[2017-09-25] MEDS ORDERED: LABETALOL HCL IV 5 MG/ML 20ML IV PRN (07:30)
[2017-09-25] MEDS ORDERED: FLUMAZENIL 0.1 MG/1 ML 10 ML VIAL IV PRN (07:30)
[2017-09-25] MEDS ORDERED: FENTANYL CITRATE INJ 50 MCG/1 ML 2 ML VIAL IV PRN (07:30)
[2017-09-25] MEDS ORDERED: EpHEDrine SULFATE INJ 50 MG/ML AMP IV PRN (07:30)
[2017-09-25] MEDS ORDERED: PHENYLEPHRINE 100MCG/ML 5ML SYR IV PRN (07:30)
[2017-09-25] MEDS ORDERED: ATROPINE SULFATE 0.1 MG/ML 5ML SYR IV PRN (07:30)
[2017-09-25] MEDS ORDERED: HYDROmorphone INJ 0.5 MG/0.5 ML SYR IV PRN ×2 (07:30→08:45)
[2017-09-25] MEDS ORDERED: ALBUT/IPRATROP 3MG/0.5MG NEB 3 ML VIAL INH ONE (07:30)
[2017-09-25] MEDS ORDERED: ONDANSETRON INJ 2 MG/ML 2 ML VIAL IV PRN ×2 (07:30→08:45)
[2017-09-25] MEDS ORDERED: MEPERIDINE HCL 25 MG/ML CARP IV PRN (07:30)
[2017-09-25] MEDS ORDERED: HYDROmorphone INJ 2 MG/ML SYR/VIAL ONE ×2 (08:01→08:38)
[2017-09-25] MEDS ORDERED: FLOSEAL HEMOSTATIC MATRIX 10ML TOP ONE (08:36)
--- NOTE | 2017-09-25 08:43 | [facility] Operative Report ---
Operative Report Operative Date September 25, 2017. Pre-Operative Diagnosis Cervical spinal stenosis with myeloradiculopathy Post-Operative Diagnosis Same Procedure(s) Performed 1. Anterior cervical discectomy bilateral foraminotomies C5-6. #2 anterior cervical arthrodesis C5-6. #3 placement of cortical allograft 7 mm in height filled with DBM C5-6. #4 application of 5 complete and screws across C5-6. Surgeon Dr. Ambrosio Hearing Aid Technician Surgeon(s) Neisha Cueva PA-C Estimated Blood Loss 10 cc Findings Stenosis Description of Procedure Patient was met with preoperatively case discussed all questions addressed. After informed consent obtained patient was taken to the operative suite underwent intubation and placed in a supine position the Arnoldo table to head [place] headholder. All bony prominences well-padded eyes inspected to ensure no external gusher placed upon the. This point the anterior cervical spine was prepped and draped in normal sterile fashion. With the assistance of fluoroscopy to verify the C5-6 disc space. The transverse incision was placed on the right anterior aspect of the cervical spine overlying this region. Sharp dissection with the assistance of bipolar cautery was performed down to and exposing the C5-6 level. Self-retaining retractors placed. Verified position with fluoroscopy. Complete discectomy was performed up to the uncovertebral joints bilaterally. [place] distracting pins placed to assist in visualization. I removed all posterior annular fibers longitudinal ligament and bilateral foraminotomies performed. Endplates were burred to subcortical bleeding bone and a 7 mm cortical allograft filled DBM tapped in position. Distracting apparatus was removed. A complete and screws applied with the assistance of fluoroscopy. Incision was then copiously irrigated explored to ensure there is no damage to surrounding structures or remaining bleeding. 10 round CORINE drain inserted. Incision was then closed with 2 Vicryl in a fashion of 4 Monocryl for fashion closure Steri-Strips sterile dressings placed. Patient will continue PACU stable condition. Please note Neisha Mobley was present throughout the entire procedure involved in patient positioning complex portions of the surgery and fashion closure. I attest to the content of the Intraoperative Record and any orders documented therein. Any exceptions are noted below.
[2017-09-25] MEDS ORDERED: LORAZEPAM INJ 0.5 MG in SYRINGE 0.75 ML IV PRN (08:45)
[2017-09-25] MEDS ORDERED: OXYCODONE HCL IR 5 MG TAB (IMMEDIATE RELEASE) PO PRN (08:45)
[2017-09-25] MEDS ORDERED: DO NOT ADMINISTER PNEUMOCOCCAL VACCINE PRN (08:45)
[2017-09-25] MEDS ORDERED: MAGNESIUM HYDROXIDE SUSP 30 ML UDC PO PRN (08:45)
[2017-09-25] MEDS ORDERED: DiphenhydrAMINE HCL 50 MG/ML VIAL IV PRN (08:45)
[2017-09-25] MEDS ORDERED: LORAZEPAM 0.5 MG TAB PO PRN (08:45)
[2017-09-25] MEDS ORDERED: ACETAMINOPHEN IV 100 ML IV PRN (08:45)
[2017-09-25] MEDS ORDERED: PRAMIPEXOLE DIHYDROCHLORIDE 0.25MG TAB PO PRN (08:45)
[2017-09-25] MEDS ORDERED: ALBUTEROL HFA 8 GM INHALER INH PRN (08:45)
[2017-09-25] MEDS ORDERED: RACEPINEPHRINE 2.25% NEBU SOLN 0.5 ML VIAL INH PRN (08:45)
[2017-09-25] MEDS ORDERED: DEXAMETHASONE INJ 8 MG in SYRINGE 0 ML IV PRN (08:45)
[2017-09-25] MEDS ORDERED: DO NOT ADMINISTER FLU VACCINE PRN (08:45)
--- NOTE | 2017-09-25 09:10 | DIAGNOSTIC IMAGING REPORT ---
Cervical SPINE, INTRAOPERATIVE FLUOROSCOPY HISTORY: C5-C6 ACDF.. FLUOROSCOPY TIME: 14 seconds. FINDINGS: Intraoperative fluoroscopy was provided for the cervical spine. 4 fluoroscopic spot images were obtained. Anterior cervical discectomy and fusion at C5-C6. The hardware appears intact. IMPRESSION: Fluoroscopy provided for a C5-C6 ACDF. Electronically signed by: Ranjit Churchill M.D. 09/25/2017 9:09 AM Dictated Date/Time: 09/25/2017 9:09 AM
[2017-09-25] MEDS ORDERED: PROPOFOL IV EMULSION 10 MG/ML 20 ML VIAL ONE ×2 (09:29→09:45)
[2017-09-25] MEDS ORDERED: ROCURONIUM BROMIDE 10 MG/ML 5 ML VIAL ONE (09:29)
[2017-09-25] MEDS ORDERED: ESMOLOL HCL 10 MG/ML 10 ML VIAL ONE (09:29)
[2017-09-25] MEDS ORDERED: ONDANSETRON INJ 2 MG/ML 2 ML VIAL ONE (09:45)
[2017-09-25] MEDS ORDERED: LIDOCAINE HCL 2% 2 ML VIAL (20MG/ML) ONE (09:45)
[2017-09-25] MEDS ORDERED: DEXAMETHASONE SOD INJ 4 MG/ML VIAL ONE (09:45)
[2017-09-25] MEDS ORDERED: GLYCOPYRROLATE INJ 0.2 MG/ML VIAL ONE (09:45)
[2017-09-25] MEDS ORDERED: METOPROLOL TARTRATE 1 MG/ML VIAL ONE (10:06)
[2017-09-25] MEDS ORDERED: ALBUTEROL 0.5% NEB SOLN 2.5 MG/0.5 ML VIAL INH PRN (11:30)
--- NOTE | 2017-09-25 11:47 | Medical Consult ---
Consultation Date of Consultation: September 25, 2017. Attending Physician: Keven Ambrosio D.O. Reason for Consultation: Hypoxia History of Present Illness We have been asked by Dr. Ambrosio to assess Ms. Yung for postoperative hypoxia. Patient is a 47yo C female with history of HTN, mild COPD, prior workup for concern for Sarcoidosis although not definitively diagnosed. Patient s/p C5-C6 anterior cervical decompression and fixation performed earlier today. Surgery uncomplicated, patient tolerated it well. She was extubated in the OR, however had high end-tidal CO2 and low SaO2 therefore an LMA was placed and she was administered a neb treatment. Patient was transferred to PACU and placed on BiPAP 10/5 40% with adequate oxygenation. Upon my encounter, patient was more alert. We removed the BiPAP and placed her on Oxymask 5L. Patient with adequate O2 saturation, 91-93% on 5L Oxymask, will occasionally drop to 89-90% when she falls asleep. Patient presently complaining of some pain, otherwise doing well. Past Medical/Surgical History Medical Problems: 1. Hypertension 2. Hyperlipidemia 3. COPD 4. GERD 5. Chronic pain Past Surgical History: Bronchoscopy C5-C6 anterior cervical decompression and fixation Tonsillectomy Tube in ear as a child Family History No pertinent family history Social History Smoking Status: Current Every Day Smoker Smokeless Tobacco Use: No Alcohol Use: socially Drug Use: none Marital Status: single Housing Status: lives with family Occupation Status: employed Allergies Coded Allergies: [place] (Verified Allergy, Severe, TIGHTNESS OF THROAT,WATERY EYES, 09/25/17 ) Penicillins (Verified Allergy, Severe, HIVES, 09/25/17) Aspirin (Verified Allergy, Unknown, TOLD NOT TAKE D/T ACID REFLUX, 09/25/17 ) Iodinated Diagnostic Agents (Verified Allergy, Unknown, HIVES, 09/25/17) PT REPORTS FAR SHE KNOWS SHE DOES OKAY WITH BETADINE ON HER SKIN Uncoded Allergies: [place]DE[place] (Allergy, Severe, BACTERIAL PNEUMONIA, 03/20/16) MOLD (Allergy, Severe, BACTERIAL PNEUMONIA, 03/20/16) Home Medications Acetaminophen (Tylenol), 1,000 MG PO DIRECTED PRN for Pain or Fever Albuterol (Ventolin Hfa), 2 PUFFS INH Q4H PRN for Cough Albuterol Sulf (Proventil 0.083% 2.5MG/3ML), 2.5 MG NEB Q4-6HRS PRN for SOB/ Wheezing Atorvastatin (Lipitor), 20 MG PO QAM Baclofen (Lioresal), 10 MG PO Q8 PRN for HERRERA/Pain/Stiffness Diphenhydramine Hcl (Benadryl Allergy), 50 MG PO Q4H PRN for ALLERGIC REACTION Duloxetine Hcl (Cymbalta), 60 MG PO QAM Gabapentin (Neurontin), 1,200 MG PO TID Hydrochlorothiazide (Hydrochlorothiazide), 12.5 MG PO QAM Losartan Potassium (Losartan Potassium), 50 MG PO QAM Montelukast Sodium (Montelukast Sodium), 10 MG PO QAM Pantoprazole (Protonix), 40 MG PO QAM Pramipexole Dihydrochloride (Pramipexole Dihydrochlori), 0.25 MG PO HS PRN for RESTLESS LEG SYNDROME Prednisone (Prednisone), Unknown Dose PO UD Prochlorperazine Maleate (Compazine), 10 MG PO Q6H PRN for Nausea Ranitidine (Zantac), 150 MG PO BID Tramadol (Ultram), 1 TAB PO UD PRN for PRN Varenicline (Chantix), Unknown Dose PO DIRECTED Current Inpatient Medications Current Inpatient Medications Medications (Trade) Dose Ordered Sig/Gabe Route Start Time Stop Time Status Last Admin Dose Admin Hydromorphone HCl (Dilaudid Inj) 0.5 mg Q5M PRN IV 09/25/17 07:30 09/25/17 12:30 Fentanyl Citrate (Fentanyl Inj) 25 mcg Q5M PRN IV 09/25/17 07:30 09/25/17 12:30 Naloxone HCl (Narcan Inj) 0.2 mg Q2M PRN IV 09/25/17 07:30 09/25/17 12:30 Meperidine HCl (Demerol Inj) 12.5 mg Q5M PRN IV 09/25/17 07:30 09/25/17 12:30 Ondansetron HCl (Zofran Inj) 4 mg ONE PRN IV 09/25/17 07:30 09/25/17 12:30 Flumazenil (Romazicon Inj) 0.2 mg Q2M PRN IV 09/25/17 07:30 09/25/17 12:30 Labetalol HCl (Normodyne IV) 5 mg Q5M PRN IV 09/25/17 07:30 09/25/17 12:30 09/25/17 10:09 10 MG Ephedrine Sulfate (EpHEDrine SULFATE INJ) 5 mg Q5M PRN IV 09/25/17 07:30 09/25/17 12:30 Atropine Sulfate (Atropine Sulfate 0.1mg/ml Inj) 0.5 mg Q1M PRN IV 09/25/17 07:30 09/25/17 12:30 Phenylephrine HCl (John-Synephrine 500MCG/5ML Syr) 100 mcg Q5M PRN IV 09/25/17 07:30 09/25/17 12:30 Racepinephrine (Raccemic Epinephrine 2.25% 0.5ML Neb) 0.5 ml ONE PRN INH 09/25/17 08:45 10/25/17 08:44 Acetaminophen 100 ml @ 400 mls/hr Q8H PRN IV 09/25/17 08:45 10/25/17 08:44 Hydromorphone HCl (Dilaudid Inj) 0.5mg IV for moder... Q3H PRN IV 09/25/17 08:45 10/09/17 08:44 Magnesium Hydroxide (Milk Of Magnesia Susp) 30 ml DAILY PRN PO 09/25/17 08:45 10/25/17 08:44 Docusate Sodium (coLACE CAP) 100 mg BID PO 09/25/17 09:00 10/25/17 08:59 UNV Ondansetron HCl (Zofran Inj) 4 mg Q6 PRN IV 09/25/17 08:45 10/25/17 08:44 Scopolamine (Transderm-Scop Patch) 1.5 mg Q72H TD 09/25/17 08:45 10/25/17 08:44 UNV Clindamycin Phosphate 600 mg/ Dextrose 54 ml @ 100 mls/hr Q8H IV 09/25/17 08:45 09/26/17 01:18 UNV Lorazepam (Ativan Tab) 0.5 mg Q8H PRN PO 09/25/17 08:45 10/25/17 08:44 Lorazepam 0.5 mg/ Syringe 1 ml @ 1 mls/min Q8H PRN IV 09/25/17 08:45 10/25/17 08:44 Diphenhydramine HCl (Benadryl Inj) 25 mg Q6H PRN IV 09/25/17 08:45 10/25/17 08:44 Pneumococcal Polysaccharide Vaccine 1 ea PRN PRN N/A 09/25/17 08:45 10/25/17 08:44 Influenza Virus Vacc Triv Types A&B 1 ea PRN PRN N/A 09/25/17 08:45 10/25/17 08:44 Sodium Chloride 1,000 ml @ 80 mls/hr [id number] IV 09/25/17 08:45 09/26/17 08:44 UNV Oxycodone HCl (Roxicodone Immediate Rel Tab) 5mg for pain scale 4-6 1... Q4H PRN PO 09/25/17 08:45 10/09/17 08:44 Polyethylene (Miralax Powder Packet) 17 gm DAILY PO 09/27/17 09:00 10/27/17 08:59 UNV Bisacodyl (Dulcolax Tab) 5 mg DAILY PRN PO 09/27/17 06:00 10/27/17 05:59 Bisacodyl (Dulcolax Supp) 10 mg DAILY PRN MA 09/27/17 06:00 10/27/17 05:59 Dexamethasone Sodium Phosphate 8 mg/Syringe 2 ml @ 1 mls/min ONE PRN IV 09/25/17 08:45 10/25/17 08:44 Naloxone HCl (Narcan Inj) 0.1 mg Q5M PRN IV 09/25/17 08:45 10/25/17 08:44 Miscellaneous (Remove Transderm-Scop Patch) 1 ea Q72H N/A 09/28/17 08:45 10/28/17 08:44 UNV Miscellaneous Information (Check Scopolamine Patch Placement) 1 ea QS N/A 09/25/17 16:00 10/25/17 15:59 UNV Albuterol (Ventolin Hfa Inhaler) 2 puffs Q4H PRN INH 09/25/17 08:45 10/25/17 08:44 Atorvastatin Calcium (Lipitor Tab) 20 mg QAM PO 09/25/17 09:00 10/25/17 08:59 UNV Baclofen (Lioresal Tab) 10 mg Q8 PRN PO 09/25/17 08:45 10/25/17 08:44 UNV Duloxetine HCl (Cymbalta Cap) 60 mg QAM PO 09/25/17 09:00 10/25/17 08:59 UNV Gabapentin (Neurontin Tab) 1,200 mg TID PO 09/25/17 09:00 10/25/17 08:59 UNV Losartan Potassium (coZAAR TAB) 50 mg QAM PO 09/25/17 09:00 10/25/17 08:59 UNV Montelukast Sodium (Singulair Tab) 10 mg QAM PO 09/25/17 09:00 10/25/17 08:59 UNV Pantoprazole Sodium (Protonix Tab) 40 mg QAM PO 09/25/17 09:00 10/25/17 08:59 UNV Pramipexole Dihydrochloride (miraPEX TAB) 0.25 mg HS PRN PO 09/25/17 08:45 10/25/17 08:44 UNV Ranitidine HCl (zANTac TAB) 150 mg BID PO 09/25/17 09:00 10/25/17 08:59 UNV Tramadol HCl (Ultram Tab) 50 mg UD PRN PO 09/25/17 08:45 10/25/17 08:44 UNV Non-Formulary Medication (Hydrochlorothiazide ) 12.5 mg QAM PO 09/25/17 09:00 10/25/17 08:59 UNV Review of Systems Constitutional: No fever, No chills Respiratory: No cough, No sputum, No shortness of breath Cardiovascular: No chest pain Abdomen: No pain, No nausea Genitourinary - Female: No dysuria Hematologic / Lymphatic: No abnormal bleeding/bruising, No clotting problems Integumentary: No rash, No itch Physical Exam Date Time Temp Pulse Resp B/P (MAP) Pulse Ox O2 Delivery O2 Flow Rate FiO2 09/25/17 11:17 128/84 09/25/17 11:13 82 20 09/25/17 11:13 81 20 96 09/25/17 11:11 138/88 09/25/17 11:08 77 09/25/17 11:08 77 93 09/25/17 11:07 74 93 5/21/18 11:07 77 18 11:05 104/86 09/25/17 11:02 77 18 11:02 77 20 94 18 10:57 91 18 10:57 91 94 18 10:56 129/84 09/25/17 10:52 82 09/25/17 10:52 82 92 09/25/17 10:51 123/87 09/25/17 10:50 86 20 18 10:50 86 92 18 10:46 116/85 09/25/17 10:45 84 09/25/17 10:45 84 92 09/25/17 10:41 127/76 09/25/17 10:40 88 18 09/25/17 10:40 88 90 09/25/17 10:39 85 09/25/17 10:39 85 89 09/25/17 10:36 130/82 09/25/17 10:34 91 92 09/25/17 10:34 92 09/25/17 10:33 18 145/82 09/25/17 10:29 95 93 09/25/17 10:29 96 09/25/17 10:24 84 09/25/17 10:24 84 89 18 10:21 20 122/79 09/25/17 10:19 86 92 09/25/17 10:19 86 09/25/17 10:16 114/76 09/25/17 10:14 85 94 09/25/17 10:14 84 09/25/17 10:10 16 115/75 09/25/17 10:09 86 94 40 18 10:09 84 95 09/25/17 10:09 84 18 10:06 173/102 09/25/17 10:05 214/112 09/25/17 10:04 36.7 85 15 173/102 96 CPAP 40 09/25/17 10:04 106 24 18 10:04 105 24 81 18 10:03 88 20 96 BiPAP/CPAP 80 18 10:03 88 96 80 18 07:31 84 18 98 Room Air 09/25/17 06:39 36.9 96 20 162/87 94 Room Air General: patient resting comfortably, no acute distress Skin: warm, dry, anterior cervical surgical site with dressing in place, visible area of bleeding marked by nursing staff, CORINE drain x [address] HEENT: PERRL, anicteric sclera, poor dentition, dry mucus membranes Heart: +S1/S2, regular, no m/r/g Lungs: no evidence of respiratory distress, equal air entry bilaterally, coarse breath sounds anteriorly, no rales/rhonchi or wheezes, adequate oxygenation on Oxymask Abdomen: +BS, soft, NT/ND Ext: warm, no clubbing/cyanosis or edema Neuro: non focal exam, patient groggy secondary to medications Laboratory Results Last 24 Hours Test 09/25/17 06:56 Assessment & Plan 47yo female with HTN, HLP and COPD s/p C5-C6 ACDE performed earlier today. Patient with mild postoperative hypercapnia and hypoxia requiring brief placement on BiPAP. She is now doing well on supplemental oxygen by Oxymask. 1. Hypoxia - most likely secondary to medication effects, body habitus -Will maintain supplemental O2 with Oxymask, goal SaO2 >92% -BiPAP at bedside if needed -Continuous pulse oximetry -Cautious use of narcotics and other sedating medications -Check VBG 2. HTN - patient with episode of markedly elevated BP in OR requiring IV Lopressor and Esmolol. Presently she is normotensive at 129/85. -Resume ho0me antihypertensive agents HCTZ and Losartan -Continue to monitor. If patient demonstrates elevated BPs will add PRN antihypertensive agent 3. Hyperlipidemia - stable -Continue home Lipitor 4. COPD - no acute wheezing noted, no evidence of exacerbation -DuoNeb q 4 hours -Albuterol q 4 hours PRN -Continuous pulse oximetry as above 5. GERD - stable -Continue Protonix 6. Post operative C5-C6 ACDF -Management of postoperative pain and nausea per primary team Thank you for this consult. We will continue to follow.
--- NOTE | 2017-09-25 11:56 | Anesthesiology Progress Note ---
Anesthesia Post Op Note Date & Time September 25, 2017 at 11:41 Vital Signs Pain Intensity: 2 Vital Signs Past 12 Hours Date Time Temp Pulse Resp B/P (MAP) Pulse Ox O2 Delivery O2 Flow Rate FiO2 09/25/17 11:35 36.7 92 Oxymask 7 09/25/17 11:33 79 15 09/25/17 11:33 77 15 92 09/25/17 11:31 130/91 09/25/17 11:28 79 18 09/25/17 11:28 81 18 93 09/25/17 11:26 142/86 09/25/17 11:23 79 18 90 09/25/17 11:23 81 18 09/25/17 11:21 140/87 09/25/17 11:18 89 15 97 09/25/17 11:18 88 15 09/25/17 11:17 128/84 09/25/17 11:13 82 20 09/25/17 11:13 81 20 96 09/25/17 11:11 138/88 09/25/17 11:08 77 09/25/17 11:08 77 93 09/25/17 11:07 74 93 09/25/17 11:07 77 09/25/17 11:05 104/86 09/25/17 11:02 77 09/25/17 11:02 77 20 94 09/25/17 10:57 91 09/25/17 10:57 91 94 09/25/17 10:56 129/84 09/25/17 10:52 82 09/25/17 10:52 82 92 09/25/17 10:51 123/87 09/25/17 10:50 86 20 09/25/17 10:50 86 92 09/25/17 10:46 116/85 09/25/17 10:45 84 09/25/17 10:45 84 92 09/25/17 10:41 127/76 09/25/17 10:40 88 18 09/25/17 10:40 88 90 09/25/17 10:39 85 09/25/17 10:39 85 89 09/25/17 10:36 130/82 09/25/17 10:34 91 92 09/25/17 10:34 92 09/25/17 10:33 18 145/82 09/25/17 10:29 95 93 09/25/17 10:29 96 09/25/17 10:24 84 09/25/17 10:24 84 89 09/25/17 10:21 20 122/79 09/25/17 10:19 86 92 09/25/17 10:19 86 09/25/17 10:16 114/76 09/25/17 10:14 85 94 09/25/17 10:14 84 09/25/17 10:10 16 115/75 09/25/17 10:09 86 94 40 09/25/17 10:09 84 95 09/25/17 10:09 84 09/25/17 10:06 173/102 09/25/17 10:05 214/112 09/25/17 10:04 36.7 85 15 173/102 96 CPAP 40 09/25/17 10:04 106 24 09/25/17 10:04 105 24 81 09/25/17 10:03 88 20 96 BiPAP/CPAP 80 09/25/17 10:03 88 96 80 09/25/17 07:31 84 18 98 Room Air 09/25/17 06:39 36.9 96 20 162/87 94 Room Air Notes Mental Status: alert / awake / arousable, participated in evaluation Pt Amnestic to Procedure: Yes Nausea / Vomiting: adequately controlled Pain: adequately controlled Airway Patency, RR, SpO2: stable & adequate, see Notes BP & HR: stable & adequate Hydration State: stable & adequate Anesthetic Complications: no major complications apparent The patient underwent ACDF with Dr. Ambrosio. She was slow to wake up and I was called to the OR for extubation as the patient was hypercarbic with SpO2 in the high 80s to 90s. The patient had her muscle relaxant fully reversed as per the [employer] and did not have pinpoint pupils. The patient's respirations were shallow and her lungs had decreased breath sounds bilaterally. She was transitioned to an LMA #4 and was given racemic epinephrine as well as a Duoneb through the LMA. When her breathing was assisted her ETCO2 would drop to the 50s and her SpO2 would go to the mid 90s. However, unassisted her ETCO2 would go to the 70s and her SpO2 would fall to the 80s with poor minute ventilation. After about twenty minutes the patient began to wake up more and was taking better tidal volumes. Her LMA was removed. The patient was awake and talking. She was transferred to the PACU with an Ambu bag for oxygen and placed on BiPap upon arrival to the PACU. The patient was hypertensive and tachycardic which were treated with beta blockers. Her SpO2 was in the 90s on the BiPap but would drop to the 80s when it was stopped. Dr. Armenta from medicine came to evaluate the patient and a trial of face mask oxygen was attempted which the patient tolerated well. The patient is more awake and alert now and doing well with the face mask with SpO2 in the 90s. Her vital signs are stable. She will go to telemetry overnight with continuous pulse oximetry monitoring.
[2017-09-25] MEDS ORDERED: IV FLUIDS COMPLETED PRN (12:30)
[2017-09-25] MEDS ORDERED: SCOPOLAMINE 1.5 MG TDSY TD SCH (13:00)
[2017-09-25] MEDS ORDERED: BACLOFEN 10 MG TAB PO PRN (13:00)
[2017-09-25] MEDS: HYDROCHLOROTHIAZIDE 25 MG TAB PO SCH (13:10)
[2017-09-25] MEDS: ATORVASTATIN 20 MG TAB PO SCH (13:11)
[2017-09-25] MEDS: PANTOprazole SOD 40 MG TAB PO SCH (13:11)
[2017-09-25] MEDS: DULOXETINE HCL 60 MG CAP PO SCH (13:11)
[2017-09-25] MEDS: LOSARTAN POTASSIUM 50 MG TAB PO SCH (13:11)
[2017-09-25] MEDS: GABAPENTIN 600 MG TAB PO SCH ×2 (13:12→20:34)
[2017-09-25] MEDS: SODIUM CHLORIDE 0.9% 1000ML 1,000 ML IV SCH (13:25)
[2017-09-25] MEDS: ALBUT/IPRATROP 3MG/0.5MG NEB 3 ML VIAL INH SCH ×3 (14:19→23:57)
[2017-09-25] MEDS: CLINDAMYCIN IV 600 MG in DEXTROSE 5% 50ML 50 ML IV SCH ×2 (14:32→22:48)
[2017-09-25] MEDS: CHECK SCOPOLAMINE PATCH PLACEMENT SCH ×2 (15:40→22:48)
[2017-09-25] MEDS: DOCUSATE SODIUM 100 MG CAP PO SCH (20:33)
[2017-09-25] MEDS: RANITIDINE HCL 150 MG TAB PO SCH (20:34)
[2017-09-25] MEDS ORDERED: MONTELUKAST SOD 10 MG TAB PO SCH (21:00)
[2017-09-26] VITALS (12 sets, daily range): BP systolic 104–153; BP diastolic 63–86; PULSE 65–89; TEMP 36.7–37.1; O2SAT 93–99
[2017-09-26] MEDS: SODIUM CHLORIDE 0.9% 1000ML 1,000 ML IV SCH (02:43)
[2017-09-26] MEDS: ALBUT/IPRATROP 3MG/0.5MG NEB 3 ML VIAL INH SCH ×3 (03:11→11:11)
[2017-09-26] MEDS: CLINDAMYCIN IV 600 MG in DEXTROSE 5% 50ML 50 ML IV SCH (06:34)
[2017-09-26] MEDS ORDERED: METOPROLOL TARTRATE 1 MG/ML VIAL ONE (07:00)
--- NOTE | 2017-09-26 07:46 | Anesthesiology Progress Note ---
Anesthesia Post Op Note Date & Time September 26, 2017 at 07:45 Vital Signs Pain Intensity: 7.0 Vital Signs Past 12 Hours Date Time Temp Pulse Resp B/P (MAP) Pulse Ox O2 Delivery O2 Flow Rate FiO2 09/26/17 07:16 68 18 96 Nasal Cannula 3.0 09/26/17 07:15 68 18 96 Nasal Cannula 3.0 09/26/17 06:47 36.8 66 20 126/78 (94) 97 Nasal Cannula 3.0 09/26/17 06:00 37.1 73 20 122/67 97 Nasal Cannula 3.0 09/26/17 04:18 36.7 75 16 104/67 (79) 99 Nasal Cannula 3.0 09/26/17 04:00 37.1 77 20 136/82 97 Nasal Cannula 3.0 09/26/17 03:11 69 18 95 Nasal Cannula 3.0 09/26/17 03:11 68 18 95 Nasal Cannula 3.0 09/26/17 00:22 37.0 89 18 153/63 (93) 93 Nasal Cannula 3.0 09/26/17 00:00 96 Room Air 3.0 09/26/17 00:00 36.8 77 20 132/86 97 Nasal Cannula 3.0 09/25/17 23:30 87 18 95 Nasal Cannula 3.0 09/25/17 22:00 36.7 89 18 128/64 96 Nasal Cannula 3.0 09/25/17 19:47 36.5 84 20 123/63 (83) 96 Room Air Notes Mental Status: alert / awake / arousable, participated in evaluation Pt Amnestic to Procedure: Yes Nausea / Vomiting: adequately controlled Pain: see Notes Airway Patency, RR, SpO2: stable & adequate BP & HR: stable & adequate Hydration State: stable & adequate Anesthetic Complications: no major complications apparent patient encouraged to ask nurse for pain medications.
[2017-09-26] MEDS: DULOXETINE HCL 60 MG CAP PO SCH (08:32)
[2017-09-26] MEDS: DOCUSATE SODIUM 100 MG CAP PO SCH (08:32)
[2017-09-26] MEDS: ATORVASTATIN 20 MG TAB PO SCH (08:32)
[2017-09-26] MEDS: RANITIDINE HCL 150 MG TAB PO SCH (08:32)
[2017-09-26] MEDS: PANTOprazole SOD 40 MG TAB PO SCH (08:33)
[2017-09-26] MEDS: GABAPENTIN 600 MG TAB PO SCH (08:33)
[2017-09-26] MEDS: HYDROCHLOROTHIAZIDE 25 MG TAB PO SCH (08:34)
[2017-09-26] MEDS: LOSARTAN POTASSIUM 50 MG TAB PO SCH (08:34)
[2017-09-26] MEDS: CHECK SCOPOLAMINE PATCH PLACEMENT SCH (08:52)
[2017-09-26 09:28] LABS: HEMATOCRIT 38.8 % (37-47); HEMOGLOBIN 12.8 g/dL (12.0-16.0); MEAN CELL VOLUME 89.8 fL (80-100); MEAN CORPUSCULAR HEMOGLOBIN 29.6 pg (25-34); MEAN PLATELET VOLUME 9.1 fL (7.4-10.4); PLATELET COUNT 330 K/uL (130-400); RED CELL DISTRIBUTION WIDTH CV 14.3 % (11.5-14.5); WHITE BLOOD COUNT 18.11 K/uL (4.8-10.8)
[2017-09-26 09:47] LABS: CREATININE 0.89 mg/dl (0.60-1.20)
[2017-09-26 09:48] LABS: CALCIUM 8.9 mg/dl (8.5-10.1)
[2017-09-26] MEDS ORDERED: RXC5 PO (10:06)
--- NOTE | 2017-09-26 10:07 | Discharge Instructions ---
Discharge Instructions Date of Service September 26, 2017. Admission Reason for Admission: Spinal Stenosis Discharge Discharge Diagnosis / Problem: cervical stenosis Discharge Goals Goal(s): Improve function Activity Recommendations Activity Limitations: per Instructions/Follow-up section . Instructions / Follow-Up Instructions / Follow-Up ACTIVITY RECOMMENDATIONS: SELF CARE INSTRUCTIONS AFTER CERVICAL FUSIONS 1. No smoking. Smoking drastically decreases the chance of a solid fusion. 2. No bending, lifting more than 5 pounds, or twisting (roll like a log when turning in bed). 3. You may shower 3 days after surgery. Thoroughly dry wound. Do not soak in the tub. 4. Cervical collar: Must be worn at all times including sleeping. You may remove the brace only to bath, eat and if you are sitting in a recliner. 5. Please walk as much as you can for exercise. Gradually increase the distance that you walk as your endurance increases. SPECIAL CARE INSTRUCTIONS: VERY IMPORTANT TO READ AND REVIEW A. Do not take any anti-inflammatory medications (i.e. Indocin, Advil, Aspirin, Naprosyn, Aleve, Motrin, etc.) as these may inhibit the chance of a solid fusion. Tylenol is okay to take. B. Your surgical incision has been closed with a cosmetic suture under the skin that will dissolve in about 6 weeks. In 14 days, you can use a pair of clean scissors and cut the suture that is left outside of the skin at the ends of your incision. C. Complications are uncommon, but please contact us if you have any signs or symptoms of: 1. wound infection (fever higher than 102.5 degrees F, redness, separation of wound, drainage, or increasing pain from the incision) 2. blood clots in legs (pain, swelling, redness and warmth in legs) 3. urinary tract infection (fever higher than 102.5 degrees, burning upon urination or increased frequency of urination) 4. nerve problems (inability to walk on your toes or heels, numbness, loss of bowel or bladder control) 5. any other symptoms that concern you. D. Please call the office at if you have any concerns or questions about your operation or recovery. MANAGING PAIN AFTER SPINAL SURGERY 1. Narcotic medication is intended for short-term use and will be provided for surgical pain. Surgical pain usually lasts for a period of 4-6 weeks. Narcotic medication includes Percocet, Vicodin, Darvocet, Tylenol #3 or Lortab. 2. Longer-term pain is more appropriately treated with non-narcotic medication such as Tylenol ES. 3. Muscle spasm is not appropriately treated with narcotics. Muscle relaxers such as Soma, Flexeril or Skelaxin can be used along with Tylenol ES. 4. Remember that we all live with some "aches and pains". This is not unusual or uncommon after an injury or as we get older. 5. We will provide appropriate medication within the normal guidelines of their prescribed use. We will also be very cautious and aware of potential abuse and extended duration of patients' medication needs. 6. Please allow 2-3 days to process refills. Prescriptions will not be mailed but must be picked up at the office. FOLLOW UP VISIT: Keep your scheduled follow-up appointment. Any questions, please call the office at . Current Hospital Diet Patient's current hospital diet: Clear Liquid Diet Discharge Diet Recommended Diet: Regular Diet Procedures Procedures Performed: 1. Anterior cervical discectomy bilateral foraminotomies C5-6. #2anterior cervical arthrodesis C5-6. #3 placement of cortical allograft 7mm in height filled with DBM C5-6. #4 application of 5 complete andscrews across C5-6. Pending Studies Studies pending at discharge: no Medical Emergencies . Who to Call and When: Medical Emergencies: If at any time you feel your situation is an emergency, please call 911 immediately. . Non-Emergent Contact Non-Emergency issues call your: Primary Care Provider . "Provider Documentation" section prepared by Keven Ambrosio. .
--- NOTE | 2017-09-26 11:45 | Discharge Summary ---
Orthopedic Discharge Summary Admission Date/Reason September 25, 2017 at 11:00 Spinal Stenosis. Discharge Date/Disposition September 26, 2017 Home Diagnosis Principal Diagnosis: Cervical spinal stenosis Admission Physical Exam As per Admitting History & Physical. Hospital Course Patient underwent anterior cervical discectomy and fusion tolerated this well is taken to telemetry postoperatively secondary to her lungs. Postop day #1 she is breathing without difficulty walking without difficulty no hoarseness arm symptoms improved swallowing well and subsequently discharged home. Discharge orders and instructions can be found in chart for further review. Discharge Instructions Please refer to the electronic Patient Visit Report (Discharge Instructions) for additional information.
--- NOTE | 2017-09-26 12:32 | Hospitalist Progress Note ---
Hospitalist Progress Note Date of Service September 26, 2017. (Macarena Bartholomew ., QUEC) Subjective Pt evaluation today including: conversation w/ patient, physical exam, chart review, lab review, review of inpatient medication list Pain: Controlled PO Intake: Tolerating PO diet Voiding: no voiding problems Patient reports feeling well. She denies any shortness of breath currently. She notes that she did not tolerate the BiPAP mask well due to her claustrophobia. She denies any acute complaints currently. She is tolerating a PO diet, urinating and passing gas postoperatively. The patient denies fevers , chills, sweats, chest pain, palpitations, claudication, cough, wheezing, shortness of breath, nausea, vomiting, abdominal pain, dysuria, hematuria, urinary retention, paralysis, weakness, numbness and tingling. Additional Comments: See HPI for pertinent positives and negatives. All other systems reviewed and negative. (Macarena Bartholomew ., RAFAEL-C) Objective Vital Signs Date Time Temp Pulse Resp B/P (MAP) Pulse Ox O2 Delivery O2 Flow Rate FiO2 09/26/17 11:11 65 18 95 Room Air 09/26/17 11:11 65 18 95 Room Air 09/26/17 11:00 36.8 68 18 93 Room Air 09/26/17 08:59 93 Room Air 09/26/17 07:16 68 18 96 Nasal Cannula 3.0 09/26/17 07:15 68 18 96 Nasal Cannula 3.0 09/26/17 06:47 36.8 66 20 126/78 (94) 97 Nasal Cannula 3.0 09/26/17 06:00 37.1 73 20 122/67 97 Nasal Cannula 3.0 09/26/17 04:18 36.7 75 16 104/67 (79) 99 Nasal Cannula 3.0 09/26/17 04:00 37.1 77 20 136/82 97 Nasal Cannula 3.0 09/26/17 03:11 69 18 95 Nasal Cannula 3.0 09/26/17 03:11 68 18 95 Nasal Cannula 3.0 09/26/17 00:22 37.0 89 18 153/63 (93) 93 Nasal Cannula 3.0 09/26/17 00:00 96 Room Air 3.0 09/26/17 00:00 36.8 77 20 132/86 97 Nasal Cannula 3.0 09/25/17 23:30 87 18 95 Nasal Cannula 3.0 09/25/17 22:00 36.7 89 18 128/64 96 Nasal Cannula 3.0 09/25/17 19:47 36.5 84 20 123/63 (83) 96 Room Air 09/25/17 19:23 83 18 97 Nasal Cannula 3.0 09/25/17 19:22 85 20 97 Nasal Cannula 3.0 09/25/17 16:09 85 18 96 Nasal Cannula 3.0 09/25/17 16:07 80 22 137/92 97 Nasal Cannula 3.0 09/25/17 16:00 Nasal Cannula 3.0 09/25/17 14:48 36.5 80 20 129/95 (106) 96 Nasal Cannula 3.0 09/25/17 14:32 80 22 144/90 (108) 96 Nasal Cannula 3.0 09/25/17 14:20 75 20 94 Mask 3.0 09/25/17 13:25 76 22 139/90 (106) 98 Oxyhood 8.0 09/25/17 12:44 85 20 123/87 96 Oxymask 8.0 09/25/17 12:25 88 18 96 Mask 8.0 09/25/17 12:25 85 20 129/83 97 Oxymask 8.0 09/25/17 12:22 96 Oxymask 8.0 09/25/17 12:10 36.8 79 20 116/82 (93) 96 Oxymask 8.0 (Macarena Bartholomew ., PA-C) Physical Exam Notes: General appearance: +Morbidly obese. Well-developed, well-nourished, no apparent distress Head: Normocephalic, atraumatic Eyes: Normal inspection, PERRL, EOMI ENT: Normal ENT inspection, hearing grossly normal, pharynx normal Neck: +Incision of anterior neck, dressed, c/d/i. Supple, no JVD, trachea midline Respiratory/Chest: +Decreased breath sounds. Lungs clear to auscultation, normal breath sounds, no respiratory distress Cardiovascular: Regular rate & rhythm, no gallop, no murmur Abdomen/GI: Normal bowel sounds, non-tender, soft Extremities/Musculoskeletal: Normal inspection, no calf tenderness, no pedal edema Neurological/Psych: Alert, normal mood/affect, oriented x 3 Skin: Normal color, warm/dry, no rash (Macarena Bartholomew ., PA-C) Laboratory Results Last 24 Hours Test 09/25/17 12:51 09/25/17 16:45 09/26/17 09:16 Venous Blood pH 7.33 Venous Blood Partial Pressure CO2 51 mmHg Venous Blood Partial Pressure O2 48 mmHg Venous Blood HCO3 26 mmol/L Venous Blood Oxygen Saturation 79.0 % Venous Blood Base Excess -0.3 mEq/L Phosphorus Level 3.0 mg/dl Magnesium Level 2.0 mg/dl Bedside Glucose 149 mg/dl White Blood Count 18.11 K/uL Red Blood Count 4.32 M/uL Hemoglobin 12.8 g/dL Hematocrit 38.8 % Mean Corpuscular Volume 89.8 fL Mean Corpuscular Hemoglobin 29.6 pg Mean Corpuscular Hemoglobin Concent 33.0 g/dl RDW Standard Deviation 47.0 fL RDW Coefficient of Variation 14.3 % Platelet Count 330 K/uL Mean Platelet Volume 9.1 fL Sodium Level 140 mmol/L Potassium Level 4.0 mmol/L Chloride Level 107 mmol/L Carbon Dioxide Level 27 mmol/L Anion Gap 7.0 mmol/L Blood Urea Nitrogen 6 mg/dl Creatinine 0.89 mg/dl Est Creatinine Clear Calc Drug Dose 84.1 ml/min Estimated GFR () 88.8 Estimated GFR (Non- 76.6 BUN/Creatinine Ratio 6.5 Random Glucose 104 mg/dl Calcium Level 8.9 mg/dl (Macarena Bartholomew ., PA-C) Assessment and Plan 47 y/o female with HTN, HLD, COPD and GERD who presents s/p C5-C6 ACD with Dr. Ambrosio for medical management of postop hypoxia and hypercapnia. Hypoxia, hypercapnia s/p ACD--resolved -Likely due to anesthesia/medication side effects and body habitus -Pt was placed on BiPAP in PACU, then switched to 5L Oxymask which she tolerated better -Pt now saturating mid 90s on room air -VBG largely unremarkable -Cautions use of narcotics/sedating medications due to possible respiratory depression -POD #1. Pain management, DVT prophylaxis, and PT/OT as per primary team HTN--stable -Pt did require IV beta blockers in PACU -BP remains normotensive -Continue HCTZ 12.5 mg PO qd and losartan 50 mg PO qd HLD--stable -Continue Lipitor 20 mg PO qd COPD--stable, no acute exacerbation -Continue albuterol prn, given DuoNebs q4h here Neuropathy -Continue gabapentin 1200 mg PO TID and Cymbalta 60 mg PO qd GERD -Continue PPI Pt. is stable from a medical standpoint, we will sign off. Clear for discharge as per primary team. (Macarena Bartholomew ., PA-C) Attending Attestation - Pt seen/examined, chart reviewed, care plan d/w PA Macarena Bartholomew. I agree w/ the daniels components of her documentation. Pt w/o complaints today. No dysphagia. No dyspnea. Eating fine. Tele normal overnight. VSS no fever gen - obese, nad neck - dressing intact, no JVD, no significant swelling heart - RRR lungs - CTA b/l abd - soft, NT ext - no edema A/P: 1. cervical spine surgery POD#1 2. abnormal CBC w/ blast cells in July 2017 - repeat differential today w/o blasts; advised f/u with PCP as scheduled in October w/ repeat CBC then 3. post-op respiratory insufficiency - 2nd to COPD - resolved 4. morbid obesity with BMI 41.9 from medical standpoint can d/c home Dawood Rizzo MD (Dawood Rizzo MD)
[2017-09-26 12:54] LABS: BASO % 0.1 %; BASO ABS # 0.02 K/uL (0-0.2); EOS % 0.1 %; EOS ABS # 0.01 K/uL (0-0.5); IG# 0.05 K/uL (0.00-0.02); LYMPH % 13.7 %; LYMPH ABS # 2.48 K/uL (1.2-3.4); MONO % 7.8 %; MONO ABS # 1.41 K/uL (0.11-0.59); NEUT ABS # 14.17 K/uL (1.4-6.5)
[2017-09-27] MEDS ORDERED: BISACODYL 10 MG SUPP PR PRN (06:00)
[2017-09-27] MEDS ORDERED: BISACODYL 5 MG TABEC PO PRN (06:00)
[2017-09-27] MEDS ORDERED: POLYETHYLENE (MIRALAX) 17 GM PACK PO SCH (09:00)
== END 2017-09-26 13:43 | disposition home or self-care (01) | DRG 472 ==
LOC: C.ACU 05:49 → C.2T 11:00 → ENRESERV 11:03 → CANRESERV 11:03 → ENRESERV 11:08
PROVIDERS: ADMIT Orthopaedic Surgery Orthopaedic Surgery of the Spine; ATTEND Orthopaedic Surgery Orthopaedic Surgery of the Spine
PROC: 0RT30ZZ Resection of Cervical Vertebral Disc, Open Approach (ICD-10-PCS; principal; 2017-09-25 07:45)
PROC: 0RG10K0 Fusion of Cervical Vertebral Joint with Nonautologous Tissue Substitute, Anterior Approach, Anterior Column, Open Approach (ICD-10-PCS; principal; 2017-09-25 07:45)
DX: M48.02 Spinal stenosis, cervical region (principal); Z68.42 Body mass index [BMI] 45.0-49.9, adult; M54.12 Radiculopathy, cervical region; R09.02 Hypoxemia; R06.89 Other abnormalities of breathing; J44.9 Chronic obstructive pulmonary disease, unspecified; I10 Essential (primary) hypertension; E78.5 Hyperlipidemia, unspecified; K21.9 Gastro-esophageal reflux disease without esophagitis; G62.9 Polyneuropathy, unspecified; E66.01 Morbid (severe) obesity due to excess calories; F17.200 Nicotine dependence, unspecified, uncomplicated; Z79.899 Other long term (current) drug therapy; Z88.0 Allergy status to penicillin; Z88.6 Allergy status to analgesic agent; Z91.018 Allergy to other foods; Z91.041 Radiographic dye allergy status; Z91.048 Other nonmedicinal substance allergy status

== ENCOUNTER → 2017-09-29 | Outpatient (CLI) | payer OTHER ==
[~2017-09-29] MED LIST changes: -CLINDAMYCIN 600 MG/54 ML D5W IV SCH; -LACTATED RINGER'S 1000ML 1,000 ML IV SCH; -PRD/1 PO; -PRED20TA2 PO; -PROC10TA PO; +RXC5 PO
--- NOTE | 2017-09-29 17:27 | DIAGNOSTIC IMAGING REPORT ---
BILATERAL LOWER EXTREMITY VENOUS DOPPLER HISTORY: BILATERAL LOWER EXTREMITY SWELLING COMPARISON STUDY: None. FINDINGS: There is normal compressibility, flow, and augmentation within the bilateral lower extremity deep venous systems. IMPRESSION: No DVT within the right or left lower extremity. Electronically signed by: Ranjit Churchill M.D. 09/29/2017 5:26 PM Dictated Date/Time: 09/29/2017 5:25 PM
== END | disposition home or self-care (01) ==
LOC: C.ULTR 16:38
PROVIDERS: ATTEND Orthopaedic Surgery Orthopaedic Surgery of the Spine
DX: M79.89 Other specified soft tissue disorders (principal)

== ENCOUNTER 2018-01-01 18:42 | Emergency (ER) | payer OTHER ==
[~2018-01-01] VITALS: Ht 154.9 cm; Wt 102.8 kg
[2018-01-01 18:47] VITALS: BP 142/83; PULSE 113; TEMP 36.9; O2SAT 96; Ht 154.9 cm; Wt 102.8 kg
--- NOTE | 2018-01-01 19:16 | EMERGENCY ROOM VISIT NOTE ---
History Report prepared by Jarred: Ángel Neri Under the Supervision of: Dr. Faraz Robertson M.D. First contact with patient: 19:01 Chief Complaint: RASH Stated Complaint: BASH LOWER LEGS,ANKLES,FEET History of Present Illness The patient is a 47 year old female who presents to the Emergency Room with complaints of a worsening rash/bumps across her lower extremities that has been present for the past 3 months. The patient states that she had a surgery on her neck on September 25, and was wearing compression socks following the procedure. She states that the compression socks made the rash worse. She adds that her lower extremities are more swollen than usual. She notes the rashes are very itchy. She did see her PCP and did try treatment for scabies. This did not help. She also tried Benadryl and Calamine lotion. Nothing has improved her symptoms. Source of History: patient Onset: 3 months Position: leg (Bilateral) Quality: other (rash) Timing: worsening Note: itching Review of Systems See HPI for pertinent positives & negatives. A total of 10 systems reviewed and were otherwise negative. Past Medical & Surgical Medical Problems: (1) Cervical stenosis of spinal canal (2) Pneumonia of both lower lobes (3) Sarcoidosis of lung Old medical records were reviewed. Nurse's notes were reviewed and I agree with. Family History No pertinent family history Social History Smoking Status: Current Every Day Smoker Alcohol Use: occasionally Drug Use: none Marital Status: single Housing Status: lives with family Occupation Status: employed Current/Historical Medications Scheduled Atorvastatin (Lipitor), 20 MG PO QAM Duloxetine Hcl (Cymbalta), 60 MG PO QAM Gabapentin (Neurontin), 1,200 MG PO TID Hydrochlorothiazide (Hydrochlorothiazide), 12.5 MG PO QAM Losartan Potassium (Losartan Potassium), 50 MG PO QAM Montelukast Sodium (Montelukast Sodium), 10 MG PO QAM Pantoprazole (Protonix), 40 MG PO QAM Prednisone (Prednisone), 50 MG PO DAILY Ranitidine (Zantac), 150 MG PO BID Varenicline (Chantix), Unknown Dose PO DIRECTED Scheduled PRN Acetaminophen (Tylenol), 1,000 MG PO DIRECTED PRN for Pain or Fever Albuterol (Ventolin Hfa), 2 PUFFS INH Q4H PRN for Cough Albuterol Sulf (Proventil 0.083% 2.5MG/3ML), 2.5 MG NEB Q4-6HRS PRN for SOB/ Wheezing Baclofen (Lioresal), 10 MG PO Q8 PRN for HERRERA/Pain/Stiffness Diphenhydramine Hcl (Benadryl Allergy), 50 MG PO Q4H PRN for ALLERGIC REACTION Oxycodone HCl (Oxycodone HCl), 5-10 MG PO Q4H PRN for moderate-severe pain Pramipexole Dihydrochloride (Pramipexole Dihydrochlori), 0.25 MG PO HS PRN for RESTLESS LEG SYNDROME Tramadol (Ultram), 1 TAB PO UD PRN for PRN Allergies Coded Allergies: Sunflower (Verified Allergy, Severe, TIGHTNESS OF THROAT,WATERY EYES, 09/25/17 ) Penicillins (Verified Allergy, Severe, HIVES, 09/25/17) Aspirin (Verified Allergy, Unknown, TOLD NOT TAKE D/T ACID REFLUX, 09/25/17 ) Iodinated Diagnostic Agents (Verified Allergy, Unknown, HIVES, 09/25/17) PT REPORTS FAR SHE KNOWS SHE DOES OKAY WITH BETADINE ON HER SKIN Uncoded Allergies: MILDEW (Allergy, Severe, BACTERIAL PNEUMONIA, 03/20/16) MOLD (Allergy, Severe, BACTERIAL PNEUMONIA, 03/20/16) Physical Exam Vital Signs Date Time Temp Pulse Resp B/P (MAP) Pulse Ox O2 Delivery O2 Flow Rate FiO2 01/01/18 18:47 36.9 113 17 142/83 96 Room Air Physical Exam General: Non-ill appearing young female in no acute distress. HEENT: Normal cephalic atraumatic. Pupils are equal round and reactive to light. Extraocular movements are intact. Oropharynx is pink with moist mucous membranes. Poor dentition. No swelling of the mouth lips or tongue. Neck: Supple with a midline trachea. Well healing anterior incision. No meningeal signs or stiffness, no JVD or bruits. No Stridor. Chest: Clear to auscultation bilaterally. No wheezes or rhonchi. No increased work of breathing. Heart: regular rate and rhythm. Abdomen: Soft nontender, nondistended without rebound guarding or rigidity. Extremities: No cyanosis clubbing. Trace lower extremity edema bilaterally. No calf tenderness or assymetry Spine/Back. Non tender to palpation. No CVA tenderness Skin: There are multiple scabs on legs. Raised papules. No vasculitis appearance , no cellulitis. Neurologic exam: Cranial nerves two through 12 are intact. Motor and sensation are intact and symmetrical throughout. Medical Decision & Procedures Medications Administered Medications (Trade) Dose Ordered Sig/Gabe Route Start Time Stop Time Status Last Admin Dose Admin Prednisone (PredniSONE TAB) 60 mg NOW STAT PO 01/01/18 19:14 01/01/18 19:16 DC 01/01/18 19:14 60 MG ED Course 1900: Past medical records reviewed. The patient was evaluated in room D2B, and a complete history and physical examination were performed. 1913: Ordered Prednisone 60 mg PO. Medical Decision Differentials include, but are not limited to; contact dermatitis, viral exanthem, urticaria, allergic reaction, Talavera-David syndrome, toxic epidermal necrolysis, erythema multiforme, cellulitis, scabies, HSV, varicella, zoster, eczema, staph scalded skin syndrome, fungal infection This patient comes in as described above. she has a rash that is basically on her legs. it itches. she tried medicine for scabies and it did not help. This been going on for couple weeks. Nobody else around her has scabies. With involvement on the legs only, I do not think is likely scabies and additionally the rash does not appear to be consistent. It may be more bug bites or some sort of allergic dermatitis. It is not vasculitic appearing. She has nothing to suggest cellulitis. She has no systemic complaints. Given the concern for possible allergic component and inflammatory component, I will put her on prednisone she is given a first dose here as well as burst for the next 4 days she can continue use antihistamines. She was encouraged to follow-up with her regular doctor return to the ER if: Worsening of symptoms, fever or chills, any new problems or concerns. She is happy the plan and discharged to home. Medication Reconcilliation Current Medication List: was personally reviewed by me Blood Pressure Screening Patient's blood pressure: Elevated blood pressure Blood pressure disposition: Elevated BP felt to be situational Impression Primary Impression: Rash Scribe Attestation The scribe's documentation has been prepared under my direction and personally reviewed by me in its entirety. I confirm that the note above accurately reflects all work, treatment, procedures, and medical decision making performed by me. Departure Information Dispostion Home / Self-Care Prescriptions Prednisone (Prednisone) 50 Mg Tab 50 MG PO DAILY, #4 TAB Prov: Faraz Robertson M.D. 01/01/18 Referrals Sharla Zimmer MD (PCP) Forms HOME CARE DOCUMENTATION FORM, IMPORTANT VISIT INFORMATION, WORK / SCHOOL INSTRUCTIONS Patient Instructions [facility] Additional Instructions Rest Drink plenty of fluids Return if: Fever or chills, worsening of symptoms, redness or warmth, any new problems or concerns Use prednisone once a day for the next 4 days May use Benadryl 25 mg every 6 hours as needed Benadryl may make you drowsy do not take before drinking, driving, work
[2018-01-01] MEDS ORDERED: PRED50TA PO (19:17)
== END 2018-01-01 19:42 | disposition home or self-care (01) ==
LOC: C.EDB 18:44 → C.EDD 19:42
DX: R21 Rash and other nonspecific skin eruption (principal); F17.200 Nicotine dependence, unspecified, uncomplicated; Z79.899 Other long term (current) drug therapy; Z88.0 Allergy status to penicillin; Z88.6 Allergy status to analgesic agent; Z91.041 Radiographic dye allergy status; Z91.018 Allergy to other foods; Z91.048 Other nonmedicinal substance allergy status